=== PATIENT | male | born 1935 | race Asian ===

== ENCOUNTER 2017-12-30 16:32 | Inpatient (IN) | payer MEDICAID, MEDICARE ==
[~2017-12-30] VITALS: Ht 170.2 cm; Wt 69.9 kg
--- NOTE | 2017-12-30 16:32 | NUR ---
PT BIBA ALS TO BED 10
[2017-12-30 16:35] VITALS: BP 115/63
--- NOTE | 2017-12-30 16:36 | NUR ---
82/M BIB[facility] . PER STAFF, PUS COMING OUT FROM GTUBE SITE X1 WK. SENT BY DR. OCHOA/. DRAINAGE FOUL IN ODOR. PATIENT RESPONDS BY OPENING EYE/NON VERBAL BASELIN EFOR PATIENT PER STAFF.TRACH. TO OXYGEN 2L. HX: TRAUMATIC SUBDURAL HEMORRHAGE,RESP. FAILURE,CEREBRAL ANEURYSM,KIDNEY FAILURE, HTN, RT. SIDED PARALYSIS.
[2017-12-30] MEDS ORDERED: NACL 0.9% 1,000 ML IV SCH (16:53)
[2017-12-30] MEDS ORDERED: CLINDAMYCIN 900 MG in DEXTROSE 5% 100 ML IV ONE (16:55)
[2017-12-30] MEDS ORDERED: CLINDAMYCIN 900 MG/6 ML VIAL IV ONE (17:10)
[2017-12-30 17:39] LABS: BASOPHILS % (AUTO) 0.3 % (0.0-2.0); EOSINOPHILS # (AUTO) 0.2 K/uL (0-0.4); EOSINOPHILS % (AUTO) 1.8 % (0.0-4.0); HEMATOCRIT 22.7 % (36-52); HEMOGLOBIN 7.1 g/dL (12.0-18.0); LYMPHOCYTES # (AUTO) 0.7 K/uL (2.0-11.5); LYMPHOCYTES % (AUTO) 6.5 % (20.5-51.1); MEAN CORPUSCULAR HEMOGLOBIN 26 pg (27-31); MEAN CORPUSCULAR HGB CONC 32 g/dL (33-37); MEAN CORPUSCULAR VOLUME 82.9 fL (80-94); MONOCYTES % (AUTO) 9.6 % (1.7-9.3); NEUTROPHILS # (AUTO) 8.2 K/uL (1.8-7.7); NEUTROPHILS % (AUTO) 81.8 % (42.2-75.2); PLATELET COUNT (AUTO) 258 K/uL (140-450); RED BLOOD CELL COUNT(AUTO) 2.74 MIL/uL (4.20-6.10); RED CELL DISTRIBUTION WIDTH 18.1 % (11.6-13.7)
[2017-12-30] MEDS ORDERED: DOCU-299 GT (17:41)
[2017-12-30] MEDS ORDERED: ACET-7756 GT (17:41)
[2017-12-30] MEDS ORDERED: TRA200 GT (17:41)
[2017-12-30] MEDS ORDERED: PRON INH (17:41)
[2017-12-30] MEDS ORDERED: LACT1CAP8 GT (17:41)
[2017-12-30] MEDS ORDERED: ALEN70TA1 GT (17:41)
[2017-12-30] MEDS ORDERED: FERR75LI22 GT (17:41)
[2017-12-30] MEDS ORDERED: METF500T GT (17:41)
[2017-12-30] MEDS ORDERED: ATRN INH (17:41)
[2017-12-30] MEDS ORDERED: PANT40EC GT (17:41)
[2017-12-30] MEDS ORDERED: KEP500L GT (17:41)
[2017-12-30] MEDS ORDERED: TAMS0.4C96 GT (17:41)
[2017-12-30] MEDS ORDERED: ACET-2869 GT (17:41)
[2017-12-30] MEDS ORDERED: VALS80TA2 GT (17:44)
[2017-12-30] MEDS ORDERED: VALS160T2 PO (17:44)
[2017-12-30 17:56] LABS: PROTHROMBIN TIME 10.6 secs (10.8-13.4)
[2017-12-30 18:07] LABS: ALBUMIN 2.1 g/dL (3.4-5.0); AMYLASE 28 U/L (25-115); ANION GAP 9.4 (8-16); ASPARTATE AMINOTRANSFERASE 21 U/L (15-37); CARBON DIOXIDE 28.4 mmol/L (21-32); CHLORIDE 103 mmol/L (98-107); CREATININE 1.3 mg/dL (0.7-1.3); GLUCOSE 220 mg/dL (74-106); LIPASE 191 U/L (73-393); POTASSIUM 4.8 mmol/L (3.5-5.1); SODIUM SERUM 136 mmol/L (136-145); TOTAL BILIRUBIN 0.2 mg/dL (0.0-1.0); UREA NITROGEN, BLOOD 41 mg/dL (7-18)
[2017-12-30] MEDS: NACL 0.9% 1,000 ML IV SCH (18:27)
--- NOTE | 2017-12-30 18:29 | NUR ---
SON AT BEDSIDE.Patient appears to be resting comfortably in bed. Vital Signs within normal limits. ON TRACH COLLAR WITH Respirations even and unlabored. WILL CONTINUE TO MONITOR.
[2017-12-30] MEDS ORDERED: DOCUSATE SODIUM 100 MG GELCAP PO PRN (18:30)
[2017-12-30] MEDS ORDERED: ZOLPIDEM 5 MG TAB PO PRN (18:30)
[2017-12-30] MEDS ORDERED: ONDANSETRON 4 MG/2 ML VIAL IM/IVP PRN (18:30)
[2017-12-30] MEDS ORDERED: MORPHINE SULFATE 2 MG/ML SYR IVP PRN (18:30)
[2017-12-30] MEDS ORDERED: ACETAMINOPHEN 325 MG TAB PO PRN (18:30)
[2017-12-30] MEDS ORDERED: LORazepam 2 MG/ML VIAL IM/IVP PRN (18:30)
[2017-12-30] MEDS ORDERED: HYDROcodone/APAP 5/325 MG 1 TAB TAB PO PRN (18:30)
[2017-12-30 18:40] LABS: APPEARANCE,URINE CLEAR (CLEAR); BILIRUBIN,URINE NEGATIVE (NEGATIVE); BLOOD, URINE NEGATIVE (NEGATIVE); COLOR,URINE YELLOW (YELLOW); LEUKOCYTE ESTERASE ,URINE NEGATIVE (NEGATIVE); NITRITE, URINE NEGATIVE (NEGATIVE); UGLUCOSE NEGATIVE (NEGATIVE)
--- NOTE | 2017-12-30 18:43 | NUR ---
pt son, blayne, leaving bedside at this time to get some food. pt leaving number at this time, requesting a call with any changes or when pt is to get admitted. phone #
--- NOTE | 2017-12-30 19:05 | NUR ---
Pt report given to PARIS DE JESUS. Transfer of care at this time.
[2017-12-30 19:06] LABS: FREE T4 (FREE THYROXINE) 1.41 ng/dL (0.76-1.46); MAGNESIUM 2.4 mg/dL (1.8-2.4); PHOSPHORUS 3.9 mg/dL (2.5-4.9); THYROID STIMULATING HORMONE 2.01 uIU/mL (0.34-3.74)
--- NOTE | 2017-12-30 19:10 | NUR ---
RECEIVED REPORT FROM AM NURSE. PT RESTING IN BED, SPO2 100% ON O2 2L TRACH MASK, RR EVEN AND UNLABORED. ALL NEEDS MET.
[2017-12-30 19:15] VITALS: BP 110/63
--- NOTE | 2017-12-30 19:15 | NUR ---
RECEIVED REPORT FROM ER NURSE AT BEDSIDE FOR CONTINUITY OF CARE. PT WAS TRANSPORTED BY GREG. PT IV NOTED L HAND 24G NS OPEN WIDE. NO SOB NO S/S OF DISTRESS PT IS ON 2L O2 TO TRACH. PT HAS RANDALL IN PLACE. PT IS APHASIC. UNDERSTANDS WOLOF AND PHILIPINO. PT SKIN IS NOT INTACT PT HAS ABCESS ABOVE G-TUBE AND DRAINAGE FROM G-TUBE. BED LOWERED CALL LIGHT WITHIN REACH. O2 MONITOR AT BEDSIDE WILL CONTINUE TO MONITOR.
--- NOTE | 2017-12-30 19:18 | NUR ---
Patient will be admitted to care of DR. REYES. Admited to TELE. Will go to room 124B. Belongings list completed. Report to LIZA RHODES.
[2017-12-30] MEDS ORDERED: DEXTROSE 50% 50 ML SYR IVP PRN (19:20)
--- NOTE | 2017-12-30 20:30 | NUR ---
EPG SAVAGE AT BEDSIDE AND MD DANIELS. DISCUSSED SURGERY FOR TOMORROW. CONSENT SIGNED.
[2017-12-30] MEDS: BLOOD GLUCOSE MONITORING 1 DEV DEV FS SCH (22:37)
[2017-12-30] MEDS: TAMSULOSIN 0.4 MG CAP GT SCH (22:39)
[2017-12-30] MEDS: metFORMIN 500 MG TAB GT SCH (22:39)
[2017-12-30] MEDS: levETIRAcetam 100 MG/ML ORASYR GT SCH (22:39)
[2017-12-30] MEDS: INSULIN LISPRO SLIDING SCALE 100 UNITS/ML VIAL SUBQ PRN (22:46)
[2017-12-30] MEDS ORDERED: PIPERACILLIN/TAZOBACTAM 3.375 GM VIAL IV ONE (23:03)
[2017-12-30] MEDS: PIPER/TAZO 3.375GM/D5W PREMIX 50 ML IV SCH (23:36)
[2017-12-31] VITALS: BP 104/71
[2017-12-31] MEDS ORDERED: NITROGLYCERIN 0.4 MG TAB SL ONE (02:25)
[2017-12-31] MEDS ORDERED: HEPARIN PER PHARMACY MC PRN (03:50)
[2017-12-31] MEDS ORDERED: hePARIN / DEXT 5% PREMIX 250 ML IV SCH ×2 (03:50→04:05)
[2017-12-31 04:00] VITALS: BP 133/66
--- NOTE | 2017-12-31 04:40 | NUR ---
SPOKE TO MILTON AND LET HER KNOW OF PT UPCOMING SURGERY AT 1015. RESIDENT STATED ELEVATED TROPONIN STILL NEEDS TO BE TREATED BEFORE SURGERY. MILTON ADVISED ME TO STOP HEPARIN DRIP 4 HRS PRIOR TO SURGERY. WILL STOP DRIP AT 0615. CHARGE NURSE AWARE ALSO.
--- NOTE | 2017-12-31 05:05 | NUR ---
CALLED MD ROSE AND SHE IS AWARE OF 4 HOUR PRIOR STOP HEPARIN BEFORE SURGERY AND TO RE-START AFTER SURGERY ALSO TO REQUEST PTT AFTER 6HRS OF STARTING. WILL LET MORNING NURSE AWARE OF PLAN.
[2017-12-31] MEDS: PIPER/TAZO 3.375GM/D5W PREMIX 50 ML IV SCH ×3 (06:06→19:33)
[2017-12-31] MEDS: BLOOD GLUCOSE MONITORING 1 DEV DEV FS SCH ×4 (06:06→21:11)
[2017-12-31] MEDS ORDERED: PIPERACILLIN/TAZOBACTAM 3.375 GM VIAL IV ONE (06:08)
--- NOTE | 2017-12-31 06:15 | NUR ---
HEPARIN DRIP HAS BEEN STOP. WILL RESUME AFTER SURGERY. STOPPED HEPARIN 4 HRS PRIOR TO SURGERY.
[2017-12-31] MEDS ORDERED: DEXT 5% / NACL 0.9% 500 ML IV SCH (06:30)
[2017-12-31] MEDS: DEXT 5% /NACL 0.9% 1,000 ML IV SCH ×2 (07:05→23:45)
--- NOTE | 2017-12-31 07:15 | NUR ---
ENDORSED REPORT TO DAYSHIFT AT BEDSIDE FOR CONTINUITY OF CARE.
[2017-12-31 07:20] LABS: T4 (THYROXINE) 6.8 ug/dL (4.5-12.0)
--- NOTE | 2017-12-31 07:23 | NUR ---
RECEIVED PT FROM BOBBIN PRESSER NURSECARMELO, PT IS ASLEEP LYING ON THE BED WITH SIDE RAILS UP AND CALL LIGHT WITHIN REACH, SAFETY AND FALL PRECAUTION ENFORCED, YELLOW GOWN, YELLOW ARM BAND AND YELLOW SIGN WERE IN PLACE. PT HAS TWO IV LINES, ONE ON THE LEFT HAND G.24 WHERE THE HEPARIN DRIP WAS GIVEN AND ANOTHER LINE WAS ON THE LEFT FOREARM G. 24 WITH D5 NS RUNNING AT 60 ML/HR, INTACT AND INFUSING. RESPIRATION IS EVEN AND NO SIGN OF DISTRESS NOTED, O2 SATURATION IS AT 100% WITH TRACHEOSTOMY IN PLACE. RANDALL CATHETER IN PLACE ALSO WITH 200 ML URINE ON THE BAG. WILL CONTINUE TO MONITOR PT.
--- NOTE | 2017-12-31 07:33 | NUR ---
DR. REYES AND THE RESIDENT DOCTORS CAME TO THE PT'S ROOM AND CHECKED ON THE PT. INFORMED THE MD OF THE HEPARIN DRIP GIVEN TO THE PT AND THE TIME THAT IT WAS STOPPED.
--- NOTE | 2017-12-31 07:50 | NUR ---
CHECKED AND VERIFIED THE ORDER FOR THE PT REGARDING THE DIET AND THE PT WAS PLACED ON NPO EXCEPT MEDS, DR. LE WAS ASKED AND IF ITS OK TO GIVE THE AM MEDICATIONS, AND DR. LE SAID TO GIVE ALL AM MEDICATIONS, ACKNOWLEDGED, CHARGE NURSEKOREY WAS INFORMED ALSO REGARDING THE ADMINISTRATION OF THE AM MEDICATIONS TO THE PT.
[2017-12-31 08:00] VITALS: BP 127/67
[2017-12-31] MEDS ORDERED: FERROUS SULFATE 325 MG TABEC PO SCH (08:00)
[2017-12-31] MEDS: ALBUTEROL SULFATE/IPRATROPIU 3 ML SOL IH SCH ×3 (08:07→19:56)
[2017-12-31] MEDS ORDERED: METOPROLOL 25 MG TAB PO SCH (09:00)
[2017-12-31] MEDS ORDERED: LOSARTAN 50 MG TAB GT SCH (09:00)
[2017-12-31] MEDS ORDERED: LISINOPRIL 5 MG TAB PO SCH (09:00)
[2017-12-31] MEDS ORDERED: ASPIRIN 81 MG TAB.CHEW PO SCH (09:00)
--- NOTE | 2017-12-31 09:00 | NUR ---
DAUGHTER OF PT CAME IN THE ROOM WHILE PT WAS BEING REPOSITIONED AND CLEANED UP WITH THE HELP OF MELLISSA CLANCY. SUCTIONED PT'S SECRETIONS VIA TRACHEOSTOMY. NO SIGN OF DISTRESS NOTED AT THIS TIME. WILL MONITOR PT.
--- NOTE | 2017-12-31 09:07 | NUR ---
PATIENT HAS BEEN SCREENED AND CATEGORIZED HIGH NUTRITION RISK. PATIENT WILL BE SEEN WITHIN 1-2 DAYS OF ADMISSION. 12/31/17 01/01/[address]
[2017-12-31] MEDS: levETIRAcetam 100 MG/ML ORASYR GT SCH ×2 (09:09→21:10)
[2017-12-31] MEDS: FERROUS SULFATE 300 MG/5 ML UDC GT SCH ×2 (09:09→21:10)
[2017-12-31] MEDS: metFORMIN 500 MG TAB GT SCH ×2 (09:10→21:00)
[2017-12-31] MEDS: LACTOBACILLUS RHAMNOSUS GG 1 EACH CAP GT SCH (09:10)
[2017-12-31] MEDS: ATORVASTATIN 20 MG TAB PO SCH (09:13)
[2017-12-31 09:34] LABS: BASOPHILS % (AUTO) 0.7 % (0.0-2.0); EOSINOPHILS # (AUTO) 0.3 K/uL (0-0.4); EOSINOPHILS % (AUTO) 4.2 % (0.0-4.0); LYMPHOCYTES # (AUTO) 0.9 K/uL (2.0-11.5); LYMPHOCYTES % (AUTO) 14.2 % (20.5-51.1); MEAN CORPUSCULAR HEMOGLOBIN 26 pg (27-31); MEAN CORPUSCULAR HGB CONC 32 g/dL (33-37); MEAN CORPUSCULAR VOLUME 83.2 fL (80-94); MONOCYTES # (AUTO) 0.7 K/uL (0.8-1.0); MONOCYTES % (AUTO) 11.3 % (1.7-9.3); NEUTROPHILS # (AUTO) 4.5 K/uL (1.8-7.7); NEUTROPHILS % (AUTO) 69.6 % (42.2-75.2); PLATELET COUNT (AUTO) 240 K/uL (140-450); RED BLOOD CELL COUNT(AUTO) 2.65 MIL/uL (4.20-6.10); RED CELL DISTRIBUTION WIDTH 18.4 % (11.6-13.7); WHITE BLOOD COUNT (AUTO) 6.5 K/uL (4.8-10.8)
--- NOTE | 2017-12-31 09:57 | NUR ---
JODI FROM LAB CALLED FOR A CRITICAL LAB VALUE OF HGB 07 FOR THE PT. ACKNOWLEDGED AND WILL INFORM THE DOCTOR.
--- NOTE | 2017-12-31 10:05 | NUR ---
INFORMED DR. LE OF THE CRITICAL LAB VALUE OF HGB OF THE PT WHICH IS 7. MD ACKNOWLEDGED AND WILL PLACED AN ORDER.
[2017-12-31 10:09] LABS: ANION GAP 6.6 (8-16); CARBON DIOXIDE 30.9 mmol/L (21-32); CHLORIDE 106 mmol/L (98-107); CREATININE 1.3 mg/dL (0.7-1.3); GLUCOSE 134 mg/dL (74-106); POTASSIUM 4.5 mmol/L (3.5-5.1); SODIUM SERUM 139 mmol/L (136-145); UREA NITROGEN, BLOOD 37 mg/dL (7-18)
[2017-12-31 10:12] LABS: MAGNESIUM 2.3 mg/dL (1.8-2.4); PHOSPHORUS 4.4 mg/dL (2.5-4.9)
[2017-12-31 10:15] LABS: CHOL/HDL RATIO 3.8 (1-4.5)
--- NOTE | 2017-12-31 10:50 | NUR ---
JODI FROM LAB REPORTED A CRITICAL LAB VALUE OF TROPONIN OF 0.165. WILL NOTIFY DOCTOR.
--- NOTE | 2017-12-31 10:55 | NUR ---
INFORMED DR. ROBERT OF THE PT;S CRITICAL TROPONIN VALUE OF 0.165.
--- NOTE | 2017-12-31 11:05 | NUR ---
SCREEN FOR MID ABDOMEN ABSCESS, PT IS WAITING FOR I&D, DRESSING CHANGED. DAUGHTER AT BED SIDE, ALL QUESTIONS ANSWERED. Addendum: 12/31/17 at 1245 by London Coffey RN (Grace) PLEASE SEE INTERVENTION:WOUND ASSESSMENT.
[2017-12-31] MEDS: NACL 0.9% 1,000 ML IV SCH (11:07)
[2017-12-31 12:00] VITALS: BP 117/63
--- NOTE | 2017-12-31 12:00 | NUR ---
PT IS AWAKE AND IS LYING ON THE BED WITH DAUGHTER ON THE BEDSIDE, VITAL SIGN TAKEN AND BLOOD GLUCOSE CHECK DONE AND RESULT IS 162, INSULIN COVERAGE NOT GIVEN PER PARAMETER, MD INFORMED. WILL MONITOR PT.
--- NOTE | 2017-12-31 13:04 | NUR ---
JODI FROM LAB REPORTED A CRITICAL TROPONIN VALUE OF 0.120. WILL INFORM THE DOCTOR.
--- NOTE | 2017-12-31 13:05 | NUR ---
INFORMED DR. ROBERT OF THE PT'S CRITICAL TROPONIN VALUE. ACKNOWLEDGED.
--- NOTE | 2017-12-31 13:32 | NUR ---
ADMISSION CHART REVIEW DONE. FAXED INITIAL REVIEW TO [facility] PHYSICIAN [phone] PHONE KAJAL [phone]
[2017-12-31 14:47] LABS: PROTHROMBIN TIME 10.4 secs (10.8-13.4)
--- NOTE | 2017-12-31 14:56 | NUR ---
Industrial Conveyor Belt Repairer Note: Per [facility]arrison from [facility] , patient is on a 7 day bed hold.
[2017-12-31] MEDS: ACETAMINOPHEN 325 MG TAB PO SCH ×2 (15:24→19:41)
[2017-12-31] MEDS: SPIRONOLACTONE 25 MG TAB PO SCH (15:25)
[2017-12-31] MEDS ORDERED: ACETAMINOPHEN 325 MG TAB PO PRN (15:30)
--- NOTE | 2017-12-31 15:56 | NUR ---
PACKED RED BLOOD CELLS FOR ONE UNIT WAS PICKED UP TO THE LAB. WILL FACILITATE TRANSFUSION.
[2017-12-31 16:00] VITALS: BP 126/70
[2017-12-31] MEDS ORDERED: FUROSEMIDE 20 MG TAB PO SCH ×2 (16:00→20:00)
--- NOTE | 2017-12-31 16:00 | NUR ---
BLOOD TRANSFUSION OF ONE UNIT WAS STARTED. VITAL SIGNS TAKEN AND IS WITHIN NORMAL LIMITS. NO SIGN FO DISTRESS NOTED. WILL MONITOR.
--- NOTE | 2017-12-31 16:01 | NUR ---
12/31/17 RD INITIAL ASSESSMENT COMPLETED PLEASE REFER TO NUTRITION ASSESSMENT UNDER CARE ACTIVITY FOR ESTIMATED NUTRITIONAL NEEDS. 1. CONTINUE NPO MEDICALLY APPROPRIATE 2. IF/WHEN PT IS MEDICALLY STABLE, CONSIDER ADVANCING DIET TO PUREE CCHO 60 GM WITH TUBE FEED RECOMMENDATIONS. 3. RECOMMEND TUBE FEEDING WHEN PT IS MEDICALLY STABLE. CONSIDER GLUCERNA @55 ML/HR WITH 80 ML OF FREE WATER FLUSH Q4H 4. RD TO FOLLOW-UP 2-3 DAYS, HIGH RISK [address]
--- NOTE | 2017-12-31 16:15 | NUR ---
BLOOD TRANSFUSION IS GOING ON AND NO NEGATIVE REACTION NOTED. VITAL SIGN WITHIN NORMAL LIMITS AND IS STABLE. WILL CONTINUE TO MONITOR PT.
[2017-12-31] MEDS: ISOSORBIDE MONONITRATE 30 MG TABER PO SCH (18:40)
--- NOTE | 2017-12-31 19:00 | NUR ---
FIRST UNIT OF BAG WAS FINISHED, NS WAS RUN AND NO REACTION NOTED ON THE PT. VITAL SIGNS TAKEN ARE WITHIN NORMAL LIMITS AND STABLE.
--- NOTE | 2017-12-31 19:15 | NUR ---
STARTED 2ND BLOOD 1 UNIT OF PRBC. ADMIN BENADRYL AND TYLENOL. WILL ASSESS FOR ANY REACTIONS.
--- NOTE | 2017-12-31 19:30 | NUR ---
ENDORSED PT TO SUPERVISOR PARTICLEBOARD NURSE CARMELO FOR CONTINUITY OF CARE. PT IS STABLE AT THIS TIME.
--- NOTE | 2017-12-31 19:31 | NUR ---
RECEIVED REPORT FROM DAYSHIFT NURSE AT BEDSIDE FOR CONTINUITY OF CARE. PT AAOX1 PT RESPONDS BY NAME BUT UNDERSTANDS MORE PHILLIPINO. PT IV NOTED L HAND 24G AND L WRIST 22G. RANDALL IN PLACE. TRACH TO O2 3L. BED LOWERED CALL LIGHT WITHIN REACH WILL CONTINUE TO MONITOR.
[2017-12-31 20:00] VITALS: BP 125/73
[2017-12-31] MEDS: CARVEDILOL 3.125 MG TAB PO SCH (21:10)
[2017-12-31] MEDS: TAMSULOSIN 0.4 MG CAP GT SCH (21:11)
--- NOTE | 2017-12-31 22:27 | NUR ---
METFORMIN AND INSULIN COVERAGE NOT GIVEN BECAUSE PT IS NPO. PER MD ORDER DONT GIVE. WILL CONTINUE TO MONITOR.
[2018-01-01] VITALS (10 sets, daily range): BP systolic 113–147; BP diastolic 66–87
--- NOTE | 2018-01-01 | NUR ---
ENDED 2ND UNIT OF PRBC.
[2018-01-01] MEDS: PIPER/TAZO 3.375GM/D5W PREMIX 50 ML IV SCH ×4 (00:11→17:56)
[2018-01-01] MEDS: NACL 0.9% 1,000 ML IV SCH (03:47)
--- NOTE | 2018-01-01 06:40 | NUR ---
BG 164 PER MD DONT GIVE INSULIN COVERAGE BECAUSE PT IS NPO
[2018-01-01] MEDS: BLOOD GLUCOSE MONITORING 1 DEV DEV FS SCH ×4 (07:02→20:27)
[2018-01-01 07:06] LABS: BASOPHILS # (AUTO) 0.1 K/uL (0.00-0.22); BASOPHILS % (AUTO) 0.9 % (0.0-2.0); EOSINOPHILS # (AUTO) 0.2 K/uL (0-0.4); HEMOGLOBIN 9.9 g/dL (12.0-18.0); LYMPHOCYTES # (AUTO) 0.7 K/uL (2.0-11.5); LYMPHOCYTES % (AUTO) 13.1 % (20.5-51.1); MEAN CORPUSCULAR HEMOGLOBIN 27 pg (27-31); MEAN CORPUSCULAR HGB CONC 32 g/dL (33-37); MEAN CORPUSCULAR VOLUME 84.9 fL (80-94); MONOCYTES # (AUTO) 0.7 K/uL (0.8-1.0); MONOCYTES % (AUTO) 12.5 % (1.7-9.3); NEUTROPHILS % (AUTO) 70.5 % (42.2-75.2); PLATELET COUNT (AUTO) 246 K/uL (140-450); RED BLOOD CELL COUNT(AUTO) 3.65 MIL/uL (4.20-6.10); WHITE BLOOD COUNT (AUTO) 5.7 K/uL (4.8-10.8)
[2018-01-01] MEDS: ALBUTEROL SULFATE/IPRATROPIU 3 ML SOL IH SCH ×3 (07:12→19:29)
[2018-01-01 07:14] LABS: ANION GAP 11.2 (8-16); CARBON DIOXIDE 30.4 mmol/L (21-32); CHLORIDE 106 mmol/L (98-107); CREATININE 1.6 mg/dL (0.7-1.3); GLUCOSE 151 mg/dL (74-106); POTASSIUM 4.6 mmol/L (3.5-5.1); SODIUM SERUM 143 mmol/L (136-145); UREA NITROGEN, BLOOD 36 mg/dL (7-18)
[2018-01-01 07:17] LABS: FERRITIN 254 ng/mL (30-400); FOLIC ACID > 20.00 ng/mL (>3.0)
[2018-01-01 07:23] LABS: MAGNESIUM 2.2 mg/dL (1.8-2.4); PHOSPHORUS 4.9 mg/dL (2.5-4.9)
--- NOTE | 2018-01-01 07:30 | NUR ---
RECEIVED PT AWAKE AND ALERT, APHASIC. ON TRACH TO OXYGEN AT 2LPM. NO SOB NOTED. NO SIGNS OF PAIN. IV TO LT WRIST AND LT HAND PATENT AND INTACT. CHEST, DIMINISHED AIR ENTRY TO THE BASES. ABDOMEN SOFT, BOWEL SOUNDS PRESENT. WITH G-TUBE CLAMPED. ABSCESS NOTED ON TOP OF G-TUBE SITE, DRESSING DRY AND INTACT. WITH RANDALL DRAINING MONERATE AMOUNTS OF CLEAR YELLOW URINE. RT SIDED WEAKNESS NOTED. WILL REPOSITION PT EVERY 2 HRS. INSTRUCTED PT TO CALL FOR ASSISTANCE, CALL LIGHT WITHIN REACH, PT VERBALIZED PARTIAL UNDERSTANDING.
--- NOTE | 2018-01-01 07:36 | NUR ---
ENDORSED REPORT TO DAYSHIFT NURSE AT BEDSIDE FOR CONTINUITY OF CARE.
[2018-01-01] MEDS: FERROUS SULFATE 300 MG/5 ML UDC GT SCH ×2 (09:00→20:47)
[2018-01-01] MEDS: metFORMIN 500 MG TAB GT SCH ×2 (09:00→20:47)
--- NOTE | 2018-01-01 09:00 | NUR ---
NPO MAINTAINED FOR PLANNED PROCEDURE.
[2018-01-01] MEDS: LOSARTAN 25 MG TAB GT SCH (09:58)
[2018-01-01] MEDS: LACTOBACILLUS RHAMNOSUS GG 1 EACH CAP GT SCH (09:58)
[2018-01-01] MEDS: ATORVASTATIN 20 MG TAB PO SCH (09:58)
[2018-01-01] MEDS: levETIRAcetam 100 MG/ML ORASYR GT SCH ×2 (09:58→20:46)
[2018-01-01] MEDS: CARVEDILOL 3.125 MG TAB PO SCH ×2 (09:59→20:29)
--- NOTE | 2018-01-01 11:15 | NUR ---
TRACH SECRETIONS SUCTIONED REGULARLY.
[2018-01-01] MEDS: SPIRONOLACTONE 25 MG TAB PO SCH (12:38)
--- NOTE | 2018-01-01 13:15 | NUR ---
PT'S FAMILY AT THE BEDSIDE. DR. GODDARD SPOKE WITH PT'S FAMILY REGARDING THE PROCEDURE THAT DR. DANIELS WILL DO IT TODAY, VERBALIZED UNDERSTANDING.
[2018-01-01] MEDS: DEXT 5% /NACL 0.9% 1,000 ML IV SCH (14:26)
--- NOTE | 2018-01-01 16:20 | NUR ---
PT WHEELED TO SURGERY IN STABLE CONDITION. FAMILY AT THE BEDSIDE. VERBALIZED UNDERSTANDING.
[2018-01-01] MEDS ORDERED: fentaNYL 0.05 MG/ML VIAL ONE (16:35)
[2018-01-01] MEDS ORDERED: MIDAZOLAM 2 MG/2 ML VIAL ONE (16:36)
[2018-01-01] MEDS: BUPIVACAINE-MPF 0.5% 30 ML VIAL INJ ONE ×2 (16:36→16:52)
--- NOTE | 2018-01-01 17:20 | NUR ---
DR. VALENTINE CAME TO SEE PT. SERGOD PROCEDURE EXPLAINED, PT VERBALIZED UNDERSTANDING. CONSENT SIGNED. Addendum: 01/01/18 at 1739 by Valerie Kennedy RN DISREGARD ABOVE ENTRY. WRONG PT.
--- NOTE | 2018-01-01 17:30 | NUR ---
PT BACK FROM SURGERY IN STABLE CONDITION. DRESSING TO ABDOMEN DRY AND INTACT. DR. DANIELS SPOKE WITH PT'S FAMILY AT THE BEDSIDE.
[2018-01-01] MEDS ORDERED: MIDAZOLAM 2 MG/2 ML VIAL IVP ONE (17:35)
[2018-01-01] MEDS ORDERED: fentaNYL 0.05 MG/ML VIAL IVP ONE (17:35)
--- NOTE | 2018-01-01 18:00 | NUR ---
PT STILL SEDATED BUT AROUSABLE. VITAL SIGN STABLE.
--- NOTE | 2018-01-01 18:15 | NUR ---
DR. HEARD CAME TO SEE MD LA NENA TALKED TO FAMILY AT THE BEDSIDE, VERBALIZED UNDERSTANDING.
[2018-01-01] MEDS: ISOSORBIDE MONONITRATE 30 MG TABER PO SCH (18:35)
--- NOTE | 2018-01-01 19:03 | NUR ---
PT STILL SEDATED, AROUSABLE. NO SOB NOTED. NO SIGNS OF PAIN AT THIS TIME. WILL ENDORSE TO NEXT SHIFT NURSE FOR CONTINUITY OF CARE.
--- NOTE | 2018-01-01 19:05 | NUR ---
RECEIVED PATIENT ON BED WITH TRACH IN PLACE CONNECTED TO 02 2L. RANDALL CATHETER IN PLACE DRAINING A YELLOW URINE. WITH G-TUBE IN PLACE. ASPIRATION PRECAUTION APPLIED. PATIENT HAS BM CHANGED AND REPOSITION. SUCTIONED PATIENT INITIATED. WILL CONTINUE TO MONITOR.
[2018-01-01] MEDS: TAMSULOSIN 0.4 MG CAP GT SCH (20:49)
--- NOTE | 2018-01-01 21:00 | NUR ---
BS TAKEN AND RECORDED 149 NO COVERAGE PER SLIDING SCALE. SCHEDULE MEDICATION GIVEN THROUGH G-TUBE. NO RESIDUAL AT THIS TIME. NO S/S OF DISTRESS NOTED. ALL NEEDS ATTENDED. FALL/ASPIRATION PRECAUTION IMPLEMENTED.CALL LIGHT WITHIN REACH. WILL CONTINUE TO MONITOR.
--- NOTE | 2018-01-01 21:30 | NUR ---
CHECKED PATIENT RESTING COMFORTABLE ON BED. ASPIRATION PRECAUTION APPLIED. SUCTION PATIENT WITH MINIMAL SPUTUM. O2 SATURATION 99%. NO S/S OF DISTRESS NOTED. WILL CONTINUE TO MONITOR.
[2018-01-02] VITALS: BP 141/81
--- NOTE | 2018-01-02 00:05 | NUR ---
SCHEDULE MEDICATION GIVEN. V/S TAKEN AND RECORDED. SUCTION PATIENT TOLERATED WELL. REPOSITIONED PATIENT AND PLACE IN SEMI-FOWLERS POSITION. ASPIRATION PRECAUTION APPLIED. NO S/S OF DISTRESS NOTED. WILL CONTINUE TO MONITOR.
[2018-01-02] MEDS: PIPER/TAZO 3.375GM/D5W PREMIX 50 ML IV SCH ×4 (00:33→17:48)
--- NOTE | 2018-01-02 02:00 | NUR ---
SEEN PATIENT RESTING ON BED. SUCTION AND REPOSITIONED PATIENT TO HIS SIDE. NO S/S OF DISTRESS NOTED. CALL LIGHT WITHIN REACH. WILL CONTINUE TO MONITOR.
[2018-01-02 04:00] VITALS: BP 138/86
--- NOTE | 2018-01-02 04:00 | NUR ---
V/S TAKEN AND RECORDED. ASPIRATION PRECAUTION APPLIED.
--- NOTE | 2018-01-02 04:27 | NUR ---
SUCTIONED PATIENT WITH MINIMAL SPUTUM TOLERATED WELL. ASPIRATION PRECAUTION APPLIED. NO S/S OF DISTRESS NOTED. ALL NEEDS ATTENDED. WILL CONTINUE TO MONITOR.
--- NOTE | 2018-01-02 05:00 | NUR ---
AM CARE DONE. SCHEDULE MEDICATION GIVEN. NO S/ OF DISTRESS NOTED. WILL CONTINUE TO MONITOR.
[2018-01-02] MEDS: INSULIN LISPRO SLIDING SCALE 100 UNITS/ML VIAL SUBQ PRN ×3 (06:16→20:37)
[2018-01-02] MEDS: BLOOD GLUCOSE MONITORING 1 DEV DEV FS SCH ×4 (06:25→20:50)
--- NOTE | 2018-01-02 06:30 | NUR ---
SUCTIONED PATIENT WITH MINIMAL AMOUNT OF SPUTUM TOLERATED WELL. 99% O2 SATURATION. NO S/S OF DISTRESS NOTED.
--- NOTE | 2018-01-02 07:25 | NUR ---
ENDORSEMENT GIVEN TO AM SHIFT NURSE AT BEDSIDE FOR CONTINUITY OF CARE. PATIENT IN STABLE CONDITION. CALL LIGHT WITHIN REACH.
--- NOTE | 2018-01-02 07:30 | NUR ---
RECEIVED PT AWAKE AND ALERT, APHASIC. ON TRACH TO OXYGEN AT 2LPM. NO SOB NOTED. NO SIGNS OF PAIN AT THIS TIME. IV TO LT WRIST AND LT HAND PATENT AND INTACT. CHEST, DIMINISHED AIR ENTRY TO THE BASES. ABDOMEN SOFT, BOWEL SOUNDS PRESENT. WITH G-TUBE CLAMPED, NPO MAINTAINED PENDING FNS CONSULT. DRESSING TO ABDOMINAL ABSCESS S/P I&D (01/02/2018) DRY AND INTACT. WITH RANDALL DRAINING MODERATE AMOUNTS OF CLEAR YELLOW URINE. RT SIDED WEAKNESS NOTED. WILL REPOSITION PT EVERY 2 HRS. INSTRUCTED PT TO CALL FOR ASSISTANCE, CALL LIGHT WITHIN REACH, PT VERBALIZED PARTIAL UNDERSTANDING.
[2018-01-02] MEDS: ALBUTEROL SULFATE/IPRATROPIU 3 ML SOL IH SCH ×3 (07:37→19:11)
[2018-01-02 07:39] LABS: BASOPHILS # (AUTO) 0.1 K/uL (0.00-0.22); BASOPHILS % (AUTO) 0.9 % (0.0-2.0); EOSINOPHILS # (AUTO) 0.1 K/uL (0-0.4); EOSINOPHILS % (AUTO) 1.9 % (0.0-4.0); HEMATOCRIT 31.6 % (36-52); HEMOGLOBIN 10.1 g/dL (12.0-18.0); LYMPHOCYTES # (AUTO) 0.6 K/uL (2.0-11.5); LYMPHOCYTES % (AUTO) 10.5 % (20.5-51.1); MEAN CORPUSCULAR HEMOGLOBIN 27 pg (27-31); MEAN CORPUSCULAR HGB CONC 32 g/dL (33-37); MEAN CORPUSCULAR VOLUME 84.5 fL (80-94); MONOCYTES # (AUTO) 0.6 K/uL (0.8-1.0); MONOCYTES % (AUTO) 10.7 % (1.7-9.3); NEUTROPHILS # (AUTO) 4.5 K/uL (1.8-7.7); PLATELET COUNT (AUTO) 259 K/uL (140-450); RED BLOOD CELL COUNT(AUTO) 3.74 MIL/uL (4.20-6.10)
[2018-01-02 07:59] LABS: ANION GAP 12.6 (8-16); CARBON DIOXIDE 27.4 mmol/L (21-32); CHLORIDE 109 mmol/L (98-107); CREATININE 1.6 mg/dL (0.7-1.3); GLUCOSE 154 mg/dL (74-106); SODIUM SERUM 145 mmol/L (136-145); UREA NITROGEN, BLOOD 28 mg/dL (7-18)
[2018-01-02 08:00] VITALS: BP 134/77
[2018-01-02] MEDS: FERROUS SULFATE 300 MG/5 ML UDC GT SCH ×2 (09:00→20:26)
[2018-01-02] MEDS: metFORMIN 500 MG TAB GT SCH ×2 (09:00→20:26)
[2018-01-02] MEDS: ATORVASTATIN 20 MG TAB PO SCH (09:26)
[2018-01-02] MEDS: LACTOBACILLUS RHAMNOSUS GG 1 EACH CAP GT SCH (09:26)
[2018-01-02] MEDS: levETIRAcetam 100 MG/ML ORASYR GT SCH ×2 (09:26→20:27)
[2018-01-02] MEDS: CARVEDILOL 3.125 MG TAB PO SCH ×2 (09:27→20:26)
[2018-01-02] MEDS: LOSARTAN 25 MG TAB GT SCH (09:27)
--- NOTE | 2018-01-02 10:00 | NUR ---
PT REPOSITIONED 2 HRS. SECRETIONS SUCTIONED REGULARLY.
[2018-01-02] MEDS ORDERED: DEXAMETHASONE 4 MG/ML VIAL IVP SCH (10:30)
[2018-01-02 12:00] VITALS: BP 142/82
[2018-01-02] MEDS: SPIRONOLACTONE 25 MG TAB PO SCH (12:07)
[2018-01-02] MEDS: DEXT 5% /NACL 0.9% 1,000 ML IV SCH (12:07)
--- NOTE | 2018-01-02 13:00 | NUR ---
MESSAGE LEFT TO DIETARY TO FOLLOW UP WITH THE FEEDING FORMULA.
--- NOTE | 2018-01-02 15:30 | NUR ---
GASTRIC RESIDUAL CHECKED: 10 MLS NOTED. G-TUBE FEEDING STARTED ORDERED. WILL CONTINUE TO MONITOR.
[2018-01-02 16:00] VITALS: BP 154/99
--- NOTE | 2018-01-02 16:55 | NUR ---
PT'S SON JANETTE AT THE BEDSIDE. DR. GODDARD DISCUSSED THE PLAN POST I&D. VERBALIZED UNDERSTANDING.
[2018-01-02] MEDS: ISOSORBIDE MONONITRATE 30 MG TABER PO SCH (17:47)
--- NOTE | 2018-01-02 19:13 | NUR ---
PT RESTING. NO SOB NOTED. NO SIGNS OF PAIN. G-TUBE FEEDING TOLERATED WELL. WILL ENDORSE TO NEXT SHIFT NURSE FOR CONTINUITY OF CARE.
--- NOTE | 2018-01-02 19:15 | NUR ---
RECEIVED PATIENT LYING COMFORTABLE ON BED IN SEMI- FOWLERS POSITION. WITH RANDALL CATHETER DRAINING FREELY A YELLOWISH URINE. TRACH TO 02 2L WITH O2 OF 100%. ASPIRATION PRECAUTION APPLIED. G-TUBE FEEDING TOLERATED WELL. WILL CONTINUE TO MONITOR.
[2018-01-02 20:00] VITALS: BP 144/89
[2018-01-02] MEDS: TAMSULOSIN 0.4 MG CAP GT SCH (20:26)
--- NOTE | 2018-01-02 21:00 | NUR ---
SCHEDULE MEDICATION GIVEN TOLERATED WELL. NO S/S OF DISTRESS NOTED. ROUTINELY SUCTIONED PATIENT FOR SECRETION. REPOSITIONED PATIENT AND PLACE IN COMFORTABLE POSITION. BS TAKEN AND RECORDED WITH COVERAGE. INSULIN GIVEN PER SLING SCALE. CALL LIGHT WITHIN REACH. WILL CONTINUE TO MONITOR.
[2018-01-03] VITALS: BP 145/93
--- NOTE | 2018-01-03 | NUR ---
SCHEDULE MEDICATION GIVEN. V/S TAKEN AND RECORDED. REPOSITIONED PATIENT AND PLACE SEMI FOWLERS POSITION. NO S/S OF DISTRESS NOTED.
--- NOTE | 2018-01-03 02:00 | NUR ---
SUCTIONED PATIENT ROUTINELY TO AVOID SECRETION ACCUMULATION TO EASE BREATHING AND MAINTAIN 100% [address] IN ASPIRATION PRECAUTION. REPOSITIONED FOR COMFORT. NO S/S OF DISTRESS NOTED AT THIS TIME.
[2018-01-03] MEDS: NACL 0.9% 1,000 ML IV SCH ×2 (03:23→19:50)
[2018-01-03 04:00] VITALS: BP 148/91
--- NOTE | 2018-01-03 04:00 | NUR ---
V/S TAKEN AND RECORDED. SUCTIONED DONE TOLERATED WELL. NO S/S OF DISTRESS NOTED. WILL CONTINUE TO MONITOR
--- NOTE | 2018-01-03 05:00 | NUR ---
AM CARE DONE. REPOSITIONED PATIENT AND PLACE IN COMFORTABLE POSITION. WILL CONTINUE TO MONITOR.
[2018-01-03] MEDS: PIPER/TAZO 3.375GM/D5W PREMIX 50 ML IV SCH ×4 (05:30→17:54)
[2018-01-03] MEDS: INSULIN LISPRO SLIDING SCALE 100 UNITS/ML VIAL SUBQ PRN ×2 (06:10→13:06)
[2018-01-03] MEDS: BLOOD GLUCOSE MONITORING 1 DEV DEV FS SCH ×4 (06:16→21:00)
[2018-01-03] MEDS: ALBUTEROL SULFATE/IPRATROPIU 3 ML SOL IH SCH ×3 (07:15→20:10)
--- NOTE | 2018-01-03 07:25 | NUR ---
GAVE REPORT TO AM SHIFT NURSE AT BEDSIDE FOR CONTINUITY OF CARE. PATIENT IN STABLE CONDITION.
--- NOTE | 2018-01-03 07:26 | NUR ---
RECEIVED REPORT FORM SENIOR ORACLE DATABASE ADMINISTRATOR NURSE. PATIENT LYING DOWN IN BED SLEEPING, AROUSABLE BY VOICE. NO DISTRESS NOTED. ON TRACH TO O2 WITH HUMIDIFIER AT 2L/MIN WITH O2 SAT AT 98%. AAOX1, APHASIC, SKIN COLOR APPROPRIATE TO ETHNICITY, WARM TO TOUCH. HAS ABDOMEN I&D ON 01/01/[address] DANIELS. DRESSING IS DRY AND INTACT. HAS GTUBE RUNNING ON GLUCERNA 1.2 FEEDING PER MD ORDERS. LUNGS COARSE ON ALL LOBES. RANDALL CATHETER IN PLACE, DRAINING YELLOW, CLOUDY URINE. REVIEWED PLAN OF CARE WITH PATIENT. UNABLE TO COMPREHEND, REINFORCEMENT NEEDED. SAFETY MEASURES IN PLACE, FALL PREVENTIONS IN PLACE. WILL CONTINUE TO MONITOR.
[2018-01-03 08:00] VITALS: BP 128/65
[2018-01-03 09:14] LABS: BASOPHILS # (AUTO) 0.1 K/uL (0.00-0.22); BASOPHILS % (AUTO) 0.7 % (0.0-2.0); EOSINOPHILS # (AUTO) 0.2 K/uL (0-0.4); EOSINOPHILS % (AUTO) 3.2 % (0.0-4.0); HEMATOCRIT 30.5 % (36-52); HEMOGLOBIN 9.8 g/dL (12.0-18.0); LYMPHOCYTES # (AUTO) 0.9 K/uL (2.0-11.5); LYMPHOCYTES % (AUTO) 13.4 % (20.5-51.1); MEAN CORPUSCULAR HEMOGLOBIN 27 pg (27-31); MEAN CORPUSCULAR HGB CONC 32 g/dL (33-37); MEAN CORPUSCULAR VOLUME 85.1 fL (80-94); MONOCYTES # (AUTO) 0.8 K/uL (0.8-1.0); MONOCYTES % (AUTO) 11.7 % (1.7-9.3); NEUTROPHILS # (AUTO) 4.8 K/uL (1.8-7.7); PLATELET COUNT (AUTO) 262 K/uL (140-450); RED BLOOD CELL COUNT(AUTO) 3.58 MIL/uL (4.20-6.10); RED CELL DISTRIBUTION WIDTH 18.2 % (11.6-13.7); WHITE BLOOD COUNT (AUTO) 6.8 K/uL (4.8-10.8)
[2018-01-03 09:32] LABS: ANION GAP 11.7 (8-16); CARBON DIOXIDE 27.3 mmol/L (21-32); CHLORIDE 111 mmol/L (98-107); CREATININE 1.8 mg/dL (0.7-1.3); GLUCOSE 166 mg/dL (74-106); SODIUM SERUM 146 mmol/L (136-145); UREA NITROGEN, BLOOD 32 mg/dL (7-18)
[2018-01-03] MEDS: FERROUS SULFATE 300 MG/5 ML UDC GT SCH ×2 (09:34→22:23)
[2018-01-03] MEDS: LOSARTAN 25 MG TAB GT SCH (09:34)
[2018-01-03] MEDS: levETIRAcetam 100 MG/ML ORASYR GT SCH ×2 (09:34→21:00)
[2018-01-03] MEDS: CARVEDILOL 3.125 MG TAB PO SCH ×2 (09:35→21:00)
[2018-01-03] MEDS: metFORMIN 500 MG TAB GT SCH (09:35)
[2018-01-03] MEDS: LACTOBACILLUS RHAMNOSUS GG 1 EACH CAP GT SCH (09:35)
[2018-01-03] MEDS: ATORVASTATIN 20 MG TAB PO SCH (09:35)
--- NOTE | 2018-01-03 09:46 | NUR ---
PATIENT LYING DOWN IN BED SLEEPING, AROUSABLE BY VOICE. NO DISTRESS NOTED. FLACC 0. PERFORMED ORAL AND TRACH SUCTIONING. SCHEDULED MEDICATIONS DUE GIVEN. SAFETY MEASURES IN PLACE, CALL LIGHT WITHIN REACH. WILL CONTINUE TO MONITOR.
--- NOTE | 2018-01-03 11:00 | NUR ---
WOUND CARE RE-EVALUATION NOTE: REASON FOR EVALUATION: S/P I&D UPPER ABDOMEN ABSCESS INTEGUMENTARY: -SURGICAL WOUND UPPER ABDOMEN 3X11X0.8, WITH UNDERMINING FROM 4-6 O'CLOCK WITH 0.5CM DEPTH, WOUND BED IS RED, CLEAN, SMALL AMOUNT SEROUS DRAINAGE, NO ODOR. -GT-SITE,TOMMY STOMA SKIN INTACT WITH IRRITATION FROM TAPE RECOMMENDATIONS: -CLEANSE UPPER ABDOMINAL SURGICAL WOUND WITH NS. PAT DRY, APPLY HYDROGEL TO WOUND BED AND PACK WITH FAN FOLDED KERLIX AREN, COVER WITH DRY DRESSING SECURE WITH TAPE, DRESSING CHANGE QD AND PRN IF SOILING. -CLEANSE GT-SITE WITH NS, APPLY EKIN RING TO TOMMY STOMA SKIN AND COVER WITH SPLIT DRESSING CHANGE Q WEEK AND PRN -TURN AND REPOSITION PATIENT Q 2H -ASSESS AND MONITOR SKIN CONDITION DURING POSITION CHANGE, PLEASE PAY ATTENTION TO SACRALCOCCYX, ELBOWS AND HEELS -OFFLOAD BILATERAL HEELS BY PLACING PILLOWS UNDER CALVES AT ALL TIMES, UNLESS OTHERWISE CONTRAINDICATED -PRESSURE REDISTRIBUTION SURFACE THERAPY RECOMMENDATIONS DISCUSSED WITH PRIMARY RN AND RESIDENT PHYSICIAN, DR. MENDOZA PLEASE CONTACT WOUND CARE NURSE FOR ANY QUESTIONS AND CHANGES IN SKIN CONDITION. Addendum: 01/03/18 at 1119 by London Coffey RN (Grace) ABOVE RECOMMENDATIONS DISCUSSED WITH DR. LE, ALSO RECOMMEND SNF FOR CONTINUE WOUND CARE
[2018-01-03 12:00] VITALS: BP 137/81
[2018-01-03] MEDS: SPIRONOLACTONE 25 MG TAB PO SCH (13:04)
--- NOTE | 2018-01-03 13:18 | NUR ---
PATIENT LYING DOWN IN BED SLEEPING, AROUSABLE BY VOICE. FAMILY MEMBERS AT BEDSIDE. NO DISTRESS NOTED. SCHEDULED MEDICATIONS DUE GIVEN. SAFETY MEASURES IN PLACE, CALL LIGHT WITHIN REACH. WILL CONTINUE TO MONITOR.
--- NOTE | 2018-01-03 13:31 | NUR ---
CM NOTE SPOKE WITH [facility] BETSY COLMENARES PH# [phone] AND GAVE HER A VERBAL CLINICAL UPDATE. PER AMANDA COLMENARES, NO NEED TO FAX REVIEW TODAY. FAXED H&P, CONSULTATION NOTES, OPERATIVE NOTE, PROGRESS NOTES TO [facility] PHYS GRP [phone]. PER [facility] BETSY COLMENARES, IF PATIENT NEEDS TRANSPORTATION TO GO TO SNF TO USE [facility] AND AUTH# [id number]. ANJU DE JESUS AWARE.
--- NOTE | 2018-01-03 15:54 | NUR ---
01/03/18 RD FOLLOW UP COMPLETED PLEASE REFER TO NUTRITION ASSESSMENT UNDER CARE ACTIVITY FOR ESTIMATED NUTRITIONAL NEEDS. 1.CONTINUE GLUCERNA @70 ML/HR -THIS WILL PROVIDE PT WITH 1680 ML OF VOLUME, 2016 KCAL, AND 100 GM OF PROTEIN, WHICH MEETS 100% OF ESTIMATED NEEDS. 2. CONTINUED FREE WATER FLUSH AT [address] TO FOLLOW-UP 2-3 DAYS, HIGH RISK [address]
[2018-01-03 16:00] VITALS: BP 134/79
--- NOTE | 2018-01-03 16:00 | NUR ---
PATIENT LYING DOWN IN BED WITH FAMILY MEMBERS AT BEDSIDE. NO DISTRESS NOTED. CONDITION UNCHANGED. WILL CONTINUE TO MONITOR.
[2018-01-03] MEDS: ISOSORBIDE MONONITRATE 30 MG TABER PO SCH (17:54)
--- NOTE | 2018-01-03 18:03 | NUR ---
PATIENT LYING DOWN IN BED SLEEPING, AROUSABLE BY VOICE. NO DISTRESS NOTED. FLACC 0. CONDITION UNCHANGED. SAFETY MEASURES IN PLACE, CALL LIGHT WITHIN REACH. WILL CONTINUE TO MONITOR.
--- NOTE | 2018-01-03 19:25 | NUR ---
GAVE REPORT TO LADLE LINER HELPER NURSE FOR CONTINUITY OF CARE. PATIENT IN STABLE CONDITION.
--- NOTE | 2018-01-03 19:26 | NUR ---
RECEIVED PT FROM ANJU RN PT AOX1 TRACH TO COLLAR 02 2 LTS NOT SOB NOTED IV ON RT ARM INFUSING WELL ON TELEMETRY ST, ABD DRESSING DRY AND INTACT G TUBE FEEDING WELL TOLERATED INITIAL ASSESSMENT DONE
[2018-01-03 20:00] VITALS: BP 146/81
--- NOTE | 2018-01-03 21:30 | NUR ---
;BLOOD SUGAR TEST 143 NOT COVERAGE PT REPOSITIONED Q2H
[2018-01-03] MEDS: TAMSULOSIN 0.4 MG CAP GT SCH (22:24)
[2018-01-04] VITALS: BP 137/82
--- NOTE | 2018-01-04 | NUR ---
PT SUCTIONED NECESSARY ON TELEMETRY ST REPOSITIONED Q2H
[2018-01-04] MEDS: PIPER/TAZO 3.375GM/D5W PREMIX 50 ML IV SCH ×2 (00:16→06:21)
[2018-01-04 04:00] VITALS: BP 151/85
--- NOTE | 2018-01-04 04:00 | NUR ---
SPONGE BATH GIVNE LINEN CHANGED NOT DISTRESS NOTED ST ON TELEMETRY
[2018-01-04] MEDS: BLOOD GLUCOSE MONITORING 1 DEV DEV FS SCH ×4 (06:29→21:48)
[2018-01-04] MEDS: INSULIN LISPRO SLIDING SCALE 100 UNITS/ML VIAL SUBQ PRN ×3 (06:30→21:52)
[2018-01-04] MEDS: ALBUTEROL SULFATE/IPRATROPIU 3 ML SOL IH SCH ×3 (06:42→20:25)
--- NOTE | 2018-01-04 06:43 | NUR ---
PT SLEEPING WITH NO SIGNS OF DISTRESS NOTED AT THIS TIME NO HHN GIVEN
[2018-01-04 07:25] LABS: BASOPHILS % (AUTO) 0.4 % (0.0-2.0); EOSINOPHILS # (AUTO) 0.2 K/uL (0-0.4); EOSINOPHILS % (AUTO) 1.6 % (0.0-4.0); HEMATOCRIT 32.7 % (36-52); HEMOGLOBIN 10.3 g/dL (12.0-18.0); LYMPHOCYTES # (AUTO) 0.9 K/uL (2.0-11.5); LYMPHOCYTES % (AUTO) 9.2 % (20.5-51.1); MEAN CORPUSCULAR HEMOGLOBIN 27 pg (27-31); MEAN CORPUSCULAR HGB CONC 31 g/dL (33-37); MEAN CORPUSCULAR VOLUME 86.9 fL (80-94); MONOCYTES # (AUTO) 0.8 K/uL (0.8-1.0); MONOCYTES % (AUTO) 8.6 % (1.7-9.3); NEUTROPHILS # (AUTO) 7.8 K/uL (1.8-7.7); NEUTROPHILS % (AUTO) 80.2 % (42.2-75.2); PLATELET COUNT (AUTO) 264 K/uL (140-450); RED BLOOD CELL COUNT(AUTO) 3.76 MIL/uL (4.20-6.10); RED CELL DISTRIBUTION WIDTH 18.6 % (11.6-13.7); WHITE BLOOD COUNT (AUTO) 9.8 K/uL (4.8-10.8)
--- NOTE | 2018-01-04 07:30 | NUR ---
RECEIVED BEDSIDE REPORT FROM NAMED ACCOUNT EXECUTIVE RN. PT IN STABLE CONDITION. FLACC 0. PT IS TACHYPNEIC AT 26 BPM. O2 SAT 99%. NO ACUTE DISTRESS NOTED. ON 2L O2 TRACH TO O2. ON G-TUBE FEEDINGS AT 70 ML/HOUR ON DYSPHAGIA PRECAUTIONS. G-TUBE SITE HAS DARK BROWN AND THICK DISCHARGE. WILL NOTIFY MD. G-TUBE DRESSING CHANGED. ABD PAD ON UPPER ABDOMEN FOR S/P I&D 01/01/18 FOR ABSCESS. DRESSING IS CLEAN, DRY, AND INTACT. BILATERAL UE NON-PITTING EDEMA. RIGHT SIDED WEAKNESS FROM HX: CVA. F/C IN PLACE, DRAINING URINE. IV SITE PATENT AND ASYMPTOMATIC, RUNNING IVF PER MD ORDERS. ALL SAFETY PRECAUTIONS IN PLACE, WILL CONTINUE TO MONITOR.
[2018-01-04 07:40] LABS: CARBON DIOXIDE 28.2 mmol/L (21-32); CHLORIDE 110 mmol/L (98-107); CREATININE 2.2 mg/dL (0.7-1.3); GLUCOSE 200 mg/dL (74-106); POTASSIUM 5.2 mmol/L (3.5-5.1); SODIUM SERUM 148 mmol/L (136-145); UREA NITROGEN, BLOOD 34 mg/dL (7-18)
[2018-01-04 07:45] LABS: MAGNESIUM 2.4 mg/dL (1.8-2.4); PHOSPHORUS 4.4 mg/dL (2.5-4.9)
[2018-01-04 08:00] VITALS: BP 141/77
--- NOTE | 2018-01-04 08:43 | NUR ---
CALLED TO PT ROOM DUE TO PT DESAT TO 87% TRACH WAS OUT AND SANITATION SUPERINTENDENT CALLED PT BAGGED WITH 100% FIO2 AND ER DR. LOERA WAS CALLED TO INSERT NEW TRACH PORTEX 7 WITH NO PROBLEMS SANITATION SUPERINTENDENT ENDED AT 0850 WITH PT DOING GOOD PLACED BACK ON 2L VIA TRACH, SXN LARGE AMT OF BLOOD TINT SECRETIONS
--- NOTE | 2018-01-04 08:50 | NUR ---
DR. TABOR IN ROOM AND NOTICED PATIENT IN RESPIRATORY DISTRESS WITH TRACH OUT OF PLACE. PT WAS TACHYPNEIC AND O2 SAT DROPPING. BP AND HR ELEVATED. PERSPIRATION NOTED ON FOREHEAD. PAGED RT IMMEDIATELY, AND CALLED RAPID RESPONSE. RT BAGGED PATIENT. MD REINSERTED TRACH. DR. LE NOTIFIED. O2 SATURATION NOW 99%. NO ACUTE DISTRESS NOTED. RESTRAINTS PLACED PER MD ORDERS.
--- NOTE | 2018-01-04 09:18 | NUR ---
CALLED SON IN CHART AND NOTIFIED HIM OF EVENTS CONCERNING RAPID RESPONSE AND THE NEED FOR BILATERAL WRIST RESTRAINTS. SON IS AGREEABLE TO WRIST RESTRAINTS. WILL CONTINUE TO MONITOR PT.
[2018-01-04] MEDS: levETIRAcetam 100 MG/ML ORASYR GT SCH ×2 (09:26→21:00)
[2018-01-04] MEDS: ATORVASTATIN 20 MG TAB PO SCH (09:27)
[2018-01-04] MEDS: FERROUS SULFATE 300 MG/5 ML UDC GT SCH ×2 (09:27→21:00)
[2018-01-04] MEDS: LOSARTAN 25 MG TAB GT SCH (09:27)
[2018-01-04] MEDS: LACTOBACILLUS RHAMNOSUS GG 1 EACH CAP GT SCH (09:27)
[2018-01-04] MEDS: CARVEDILOL 3.125 MG TAB PO SCH (09:27)
--- NOTE | 2018-01-04 09:44 | NUR ---
THICK, DARK BROWN DISCHARGE FROM G-TUBE SITE. DRESSING CHANGED. SOME REDNESS NOTED AROUND G-TUBE SITE. DR. LE AWARE. WILL CONTINUE TO MONITOR.
--- NOTE | 2018-01-04 09:49 | NUR ---
0900 G-TUBE MEDS ADMINISTERED PER MD ORDERS. PER DR. TABOR, STOP G-TUBE FEEDINGS FOR AT LEAST AN HOUR AFTER G-TUBE MED ADMINISTRATION. PT IN NO ACUTE DISTRESS NOW. WILL CONTINUE TO MONITOR.
[2018-01-04] MEDS ORDERED: NACL 0.45% 1,000 ML IV SCH (10:05)
--- NOTE | 2018-01-04 10:36 | NUR ---
DR. LE HERE TO SEE G-TUBE SITE. LEAKAGE IS NOW CLEAR, THICK, AND THICK. PER DR. LE, HOLD TUBE FEEDINGS AND FOLLOW WOUND CARE ORDERS FOR G-TUBE SITE. DO NOT COVER G-TUBE SITE WITH DRAIN SPONGE TO PREVENT SKIN BREAKDOWN.
--- NOTE | 2018-01-04 10:47 | NUR ---
THICK WHITE FLUID AND LESS THAN 5 ML WESLY BLOOD LEAKED FROM G-TUBE SITE WHEN PATIENT COUGHED WITH EXERTION. DR. LE NOTIFIED.
[2018-01-04] MEDS ORDERED: LACTULOSE 20 GM/30 ML UDC PO SCH (11:00)
[2018-01-04] MEDS ORDERED: VANCOMYCIN PER PHARMACY MC PRN (11:25)
[2018-01-04 12:00] VITALS: BP 136/82
[2018-01-04] MEDS: SPIRONOLACTONE 25 MG TAB PO SCH (12:02)
[2018-01-04] MEDS: PIPER/TAZO 2.25GM/D5W PREMIX 50 ML IV SCH ×2 (12:17→18:32)
[2018-01-04] MEDS ORDERED: VANCOMYCIN 750 MG in DEXTROSE 5% 250 ML IV SCH (13:00)
--- NOTE | 2018-01-04 13:14 | NUR ---
NO TX GIVEN AT THIS TIME. PATIENT IS ASLEEP COMFORTABLY, SATURATIONS ARE 100% AND THERE IS NO SIGN OF RESPIRATORY DISTRESS.
--- NOTE | 2018-01-04 13:15 | NUR ---
RT HAS BEEN NOTIFIED OF STAT SPUTUM CULTURE ORDER.
--- NOTE | 2018-01-04 15:30 | NUR ---
G-TUBE HAS REMOVED PER DR. CHAHAL. POSSIBLE REINSERTION TOMORROW. SITE COVERED WITH GAUZE.
--- NOTE | 2018-01-04 15:46 | NUR ---
CONCURRENT REVIEW FAXED TO EVIE MEYER [phone] PHONE KAJAL [phone]
[2018-01-04 16:00] VITALS: BP 143/92
[2018-01-04 16:21] LABS: ANION GAP 20.3 (8-16); CARBON DIOXIDE 23.6 mmol/L (21-32); CHLORIDE 108 mmol/L (98-107); CREATININE 2.3 mg/dL (0.7-1.3); GLUCOSE 172 mg/dL (74-106); POTASSIUM 5.9 mmol/L (3.5-5.1); SODIUM SERUM 146 mmol/L (136-145); UREA NITROGEN, BLOOD 39 mg/dL (7-18)
--- NOTE | 2018-01-04 17:00 | NUR ---
RESTRAINTS OFF PER FAMILY REQUEST. SON AT BEDSIDE TO MONITOR PT.
[2018-01-04] MEDS ORDERED: DEXTROSE 50% 50 ML SYR IVP ONE (17:15)
[2018-01-04] MEDS ORDERED: INSULIN REGULAR, HUMAN 100 UNIT/ML VIAL IVP SCH (17:25)
[2018-01-04] MEDS ORDERED: DEXTROSE 50% 50 ML SYR IVP SCH (17:25)
[2018-01-04] MEDS: DEXT 5% / NACL 0.45% 1,000 ML IV SCH (17:52)
[2018-01-04] MEDS: ISOSORBIDE MONONITRATE 30 MG TABER PO SCH (18:00)
--- NOTE | 2018-01-04 18:20 | NUR ---
BS IS 268 WHEN RE-ASSESSED AFTER REG INSULIN AND D50 ADMINISTRATION FOR HYPERKALEMIA. WILL CONTINUE TO MONITOR.
--- NOTE | 2018-01-04 18:27 | NUR ---
IMDUR NOT GIVEN BECAUSE CAN'T BE CRUSHED. ALSO PT DOES NOT HAVE G-TUBE NOW.
--- NOTE | 2018-01-04 19:15 | NUR ---
ENDORSED POC TO COMPUTER ANALYST RN. PT IN STABLE CONDITION.
--- NOTE | 2018-01-04 19:16 | NUR ---
RECEIVED PT FROM EZEQUIEL RN PT AOX1 ON TRACH TO COLLAR 02 2 LTS NOT SOB NOTED RELATIVES AT BED SIDE SOFT WRIST RESTRAINT OFF IV ON RT ARM INFUSING WELL RANDALL CATH DRAINING WELL YELLOW URINE ON TELEMETRY ST, ABD G TUBE SITE REDNESS AND SMALL AMOUNT BLACK RESIDUAL ON G TUBE STOMA.AND NOT G TUBE ABD DRESSING DRY AND INTACT REPOSITIONED INITIAL ASSESSMENT
[2018-01-04 20:00] VITALS: BP 135/82
[2018-01-04] MEDS ORDERED: HEPARIN PER PHARMACY MC PRN (20:50)
[2018-01-04] MEDS ORDERED: hePARIN / DEXT 5% PREMIX 250 ML IV SCH (20:50)
[2018-01-04] MEDS: TAMSULOSIN 0.4 MG CAP GT SCH (21:00)
[2018-01-04] MEDS: CARVEDILOL 3.125 MG TAB GT SCH (21:00)
--- NOTE | 2018-01-04 21:30 | NUR ---
BOOD SUGAR TEST 156 COVERAGE WITH 2 UNITS SUBQ HUMALOG FOLLOW PROTOCOL
[2018-01-04] MEDS ORDERED: ENOXAPARIN 60 MG/0.6 ML SYR SUBQ SCH (22:00)
[2018-01-04 22:48] LABS: ANION GAP 18.1 (8-16); CARBON DIOXIDE 23.7 mmol/L (21-32); CHLORIDE 110 mmol/L (98-107); CREATININE 2.5 mg/dL (0.7-1.3); GLUCOSE 156 mg/dL (74-106); POTASSIUM 4.8 mmol/L (3.5-5.1); SODIUM SERUM 147 mmol/L (136-145); UREA NITROGEN, BLOOD 42 mg/dL (7-18)
[2018-01-05] VITALS (8 sets, daily range): BP systolic 102–142; BP diastolic 70–85
--- NOTE | 2018-01-05 | NUR ---
REPOSITIONED Q2H ST RESP THERAPY IS HERE AND GIVE BREATHING TX, PT IS SUCTIONED NECESSARY
[2018-01-05] MEDS: PIPER/TAZO 2.25GM/D5W PREMIX 50 ML IV SCH ×4 (00:29→20:30)
--- NOTE | 2018-01-05 04:00 | NUR ---
SPONGE BATH GIVEN LINEN CHANGED ON TELEMETRY ST , REPOSITIONED TRACH TO COLLAR REMAIN STABLE PT STILL ON RESTRAINT
[2018-01-05] MEDS: DEXT 5% / NACL 0.45% 1,000 ML IV SCH (06:00)
[2018-01-05] MEDS: BLOOD GLUCOSE MONITORING 1 DEV DEV FS SCH ×4 (06:05→20:24)
[2018-01-05] MEDS: INSULIN LISPRO SLIDING SCALE 100 UNITS/ML VIAL SUBQ PRN (06:23)
--- NOTE | 2018-01-05 06:27 | NUR ---
PATIENT IS RESTING PEACEFULLY. NO TREATMENTS ARE INDICATED AT THIS TIME. TRACH IS IN PLACE, SECURED AND PATIENT IS RECEIVING 2L VIA T-PIECE. SATS ARE AT 100% AND ADEQUATE AERATION IS HEARD. PATIENT HAS SOFT RESTRAINTS ON LEFT WRIST.
[2018-01-05] MEDS: ALBUTEROL SULFATE/IPRATROPIU 3 ML SOL IH SCH ×3 (06:34→20:37)
--- NOTE | 2018-01-05 06:37 | NUR ---
PT REMAIN STABLE NOT DISTRESS NOTED ON TELEMETRY ST BLOOD SUGAR TEST 154 COVERAGE WITH 2 UNIS SUBQ HUMALOS FOLLOW PROTOCOL
--- NOTE | 2018-01-05 07:25 | NUR ---
RECEIVED PT FROM TAPE RECORDER REPAIRER NURSE, KAMINI, PT IS ASLEEP LYING ON THE BED WITH SIDE RAILS UP AND CALL LIGHT WITHIN REACH, PT HAS AN IV LINE ON THE RT ELBOW, WITH D5 1/2 NS RUNNING AT 70ML/HR, INTACT. PT HAS A RANDALL CATHETER IN PLACE, HAS AN ABDOMINAL INCISION WITH PACKING AND COVERED WITH AN ABDOMINAL BINDER., NO G-TUBE IN PLACE AND A BLACK COLORED DRAINAGE WAS NOTABLE ON THE G-TUBE SITE, WITH REDNESS AROUND IT WELL. PT IS A TRACH TO 3L O2 IN PLACE AND PT IS SATURATING WELL AT 100%. FALL PRECAUTION ENFORCED, YELLOW SIGN, YWLLOW GOWN AND YELLOW ARM BAND IN PLACE. WILL CONTINUE TO MONITOR PT.
--- NOTE | 2018-01-05 07:30 | NUR ---
URINE SAMPLE WAS OBTAIN FROM THE PT AND WAS SENT TO THE LAB.
--- NOTE | 2018-01-05 07:38 | NUR ---
DR. REYES AND THE RESIDENT DOCTORS CAME TO THE PT'S ROOM AND SAW PT, DR. REYES SAID THAT THE PT NEEDS TOP BE TRANSFERRED TO ICU FOR CLOSE MONITORING BECAUSE RESPIRATION DOES NOT LOOK GOOD. WILL FOLLOW THROUGH WITH MD ORDER.
[2018-01-05 07:47] LABS: BASOPHILS % (AUTO) 0.1 % (0.0-2.0); HEMATOCRIT 32.6 % (36-52); HEMOGLOBIN 10.1 g/dL (12.0-18.0); LYMPHOCYTES % (AUTO) 7.8 % (20.5-51.1); MEAN CORPUSCULAR HEMOGLOBIN 27 pg (27-31); MEAN CORPUSCULAR HGB CONC 31 g/dL (33-37); MEAN CORPUSCULAR VOLUME 86.3 fL (80-94); MONOCYTES # (AUTO) 1.2 K/uL (0.8-1.0); MONOCYTES % (AUTO) 9.9 % (1.7-9.3); NEUTROPHILS # (AUTO) 10.2 K/uL (1.8-7.7); NEUTROPHILS % (AUTO) 82.2 % (42.2-75.2); PLATELET COUNT (AUTO) 153 K/uL (140-450); RED BLOOD CELL COUNT(AUTO) 3.77 MIL/uL (4.20-6.10); RED CELL DISTRIBUTION WIDTH 18.8 % (11.6-13.7); WHITE BLOOD COUNT (AUTO) 12.4 K/uL (4.8-10.8)
[2018-01-05 07:50] LABS: CREATININE 2.7 mg/dL (0.7-1.3); GLUCOSE 150 mg/dL (74-106); UREA NITROGEN, BLOOD 47 mg/dL (7-18)
[2018-01-05 07:59] LABS: ANION GAP 20.9 (8-16); CARBON DIOXIDE 22.1 mmol/L (21-32); CHLORIDE 109 mmol/L (98-107); SODIUM SERUM 147 mmol/L (136-145)
[2018-01-05 08:02] LABS: MAGNESIUM 2.6 mg/dL (1.8-2.4); PHOSPHORUS 5.6 mg/dL (2.5-4.9)
--- NOTE | 2018-01-05 08:15 | NUR ---
PT WAS CLEANED AND REPOSITIONED WITH THE HELP OF MELLISSA CLANCY, NO SIGN OF DISTRESS NOTED. WILL MONITOR PT.
--- NOTE | 2018-01-05 08:20 | NUR ---
ULTRASOUND OF BILATERAL KIDNEYS AND THE UPPER LEG WERE BEING DONE TO THE PT NOW BY IDEA WORKERPERRY OLIVARES.
[2018-01-05] MEDS: PANTOPRAZOLE 40 MG INJ VIAL IVP SCH (08:51)
[2018-01-05] MEDS: DEXTROSE 5% 1,000 ML IV SCH ×2 (08:52→22:15)
--- NOTE | 2018-01-05 09:37 | NUR ---
RECEIVED A CALL FROM ANUSHKA FROM LAB FOR A CRITICAL VALUE OF TROPONIN OF 0.272 FOR THE PT. WILL INFORM THE DOCTOR.
--- NOTE | 2018-01-05 09:40 | NUR ---
INFORMED DR. LE OF THE PT'S CRITICAL TROPONIN VALUE OF 0.272, MD ACKNOWLEDGED.
--- NOTE | 2018-01-05 10:00 | NUR ---
RECEIVED PATIENT FROM TELEMETRY .PT NONVERBAL,LETHARGIC.PT OPENS EYES WHEN ASKED HOW HE IS DOING BUT GOES BACK TO SLEEP.TRACHE TO T PIECE 30 PERCENT .RIGHT ELBOW 22 GAUGE IV WITH D5 AT 100 ML/H.DR JAMISON MADE AWARE RR IS IN THE 30S AND USING ABDOMINAL MUSCLES FOR BREATHING.BILATERAL SCD ON.UPPER ABDOMEN WITH SURGICAL WOUND ,PINK IN COLOR WITH SMALL AMOUNT OF SEROSANGUINEOUS DRAINAGE. ST ON THE MONITOR.RANDALL TO GRAVITY. Addendum: 01/05/18 at 1154 by Leida Nazario RN RN BILATERAL SOFT WRIST RESTRAINTS DC WHEN PT CAME IN AT 10 AM PT IS NOT PULLING DR JAMISON MADE AWARE
--- NOTE | 2018-01-05 10:00 | NUR ---
ENDORSED PT AND GAVE REPORT TO ICU NURSE, BRANDON, FOR CONTINUITY OF CARE. PT IS AWAKE, VITAL SIGNS WITHIN NORMAL LIMITS AND STABLE.
[2018-01-05] MEDS: LACTOBACILLUS RHAMNOSUS GG 1 EACH CAP GT SCH (10:30)
[2018-01-05] MEDS: levETIRAcetam 100 MG/ML ORASYR GT SCH (10:30)
[2018-01-05] MEDS: FERROUS SULFATE 300 MG/5 ML UDC GT SCH ×2 (10:30→20:32)
[2018-01-05] MEDS: ATORVASTATIN 20 MG TAB GT SCH (10:30)
[2018-01-05] MEDS: CARVEDILOL 3.125 MG TAB GT SCH ×2 (10:30→20:43)
--- NOTE | 2018-01-05 10:30 | NUR ---
ALL MEDS WERE NOT GIVEN DUE TO NO GTUBE ACCESS AND PER DR JAMISON HOLD NGT PLS.
--- NOTE | 2018-01-05 11:00 | NUR ---
PER DR JAMISON CHANGE IVF TO 60 ML/H. WILL WRITE ORDER
[2018-01-05] MEDS ORDERED: HEPARIN PER PHARMACY MC PRN (11:15)
--- NOTE | 2018-01-05 11:30 | NUR ---
DR ELIAS -MATERIAL PREPARATION WORKER UPDATED ABOUT PATIENTS CONDITION AND RESULT OF US UPPER EXTREMITY VENOUS DOPPLER.PER MD APPLY BILATERAL WARM COMPRESS TO EXTREMITIES.DONT START HEPARIN DRIP.
[2018-01-05] MEDS ORDERED: levETIRAcetam 500 MG in NACL 0.9% 100 ML IV SCH (12:00)
--- NOTE | 2018-01-05 12:00 | NUR ---
WARM COMPRESS DONE TO BILATERAL UUPER EXTREMITIES ORDERED.
[2018-01-05 12:37] LABS: APPEARANCE,URINE HAZY (CLEAR); BILIRUBIN,URINE NEGATIVE (NEGATIVE); BLOOD, URINE 3+ (NEGATIVE); COLOR,URINE YELLOW (YELLOW); LEUKOCYTE ESTERASE ,URINE NEGATIVE (NEGATIVE); NITRITE, URINE NEGATIVE (NEGATIVE); UGLUCOSE NEGATIVE (NEGATIVE)
[2018-01-05 12:56] LABS: RBC,URINE 11-20 (MOD) /HPF (0-5); WBC,URINE 0-5 (RARE) /HPF (0-5)
[2018-01-05 12:57] LABS: URINE AMORPHOUS URATE 1+ /HPF (None Seen)
[2018-01-05] MEDS ORDERED: hePARIN / DEXT 5% PREMIX 250 ML IV SCH (13:00)
--- NOTE | 2018-01-05 13:08 | NUR ---
GAVE VERBAL REPORT TO KAJAL FROM [facility]. FAXED CONCURRENT REVIEW TO [facility] PHYSICIAN [phone] PHONE KAJAL [phone]
[2018-01-05 13:14] LABS: EOSINOPHIL,URINE NONE SEEN
[2018-01-05] MEDS ORDERED: METOPROLOL 5 MG/5 ML VIAL IV SCH (13:45)
--- NOTE | 2018-01-05 13:45 | NUR ---
DR CHAHAL UPDATED ABOUT PTS CONDITION AND LOOK AT OLD UBEnX.comUBE SITE.NOTIFIED MD ABOUT BLACK DRAINAGE MODERATE IN AMOUNT FROM OLD GTUBE SITE.
--- NOTE | 2018-01-05 13:55 | NUR ---
DR JAMISON INSERTED DHT.PT TOLERATED WELL
--- NOTE | 2018-01-05 13:56 | NUR ---
PT SLEEPING WITH NO SIGNS OF DISTRESS NOTED AT THIS TIME NO HHN GIVEN
[2018-01-05] MEDS ORDERED: VANCOMYCIN 1GM/DEXT 5% PREMIX 200 ML IV SCH (16:00)
--- NOTE | 2018-01-05 16:00 | NUR ---
SON HERE AND UPDATED ABOUT PTS CONDITION .SON TALKED TO DR JAMISON.SON SAW THE ABDOMINAL WOUND AND OLD GTUBE SITE.
--- NOTE | 2018-01-05 16:20 | NUR ---
PER DR JAMISON ADVANCE THE NGT TO 55 CM LEVEL FROM 40 CM.RN DID IT.RN DID NOT USE NGT AND WAITED FOR XRAY RESULT WRITTEN OUT DR JAMISON AWARE OF RESULT.
--- NOTE | 2018-01-05 17:41 | NUR ---
refrigeration service technician at the bedside talking to son.
[2018-01-05] MEDS: NITROGLYCERIN 2% 1 GM PKT TP SCH (18:58)
--- NOTE | 2018-01-05 19:20 | NUR ---
REPORT GIVEN TO PARADISE DE JESUS FOR CONTINUITY OF CARE
--- NOTE | 2018-01-05 20:08 | NUR ---
RECEIVED BEDSIDE REPORT FROM MORNING SHIFT RNTRENTON, FOR CONTINUITY OF CARE. AFEBRILE, VSS, PERRL. PT IS AWAKE, NONVERBAL, OPENS EYES SPONTANEOUSLY. PT IS ON TRACH TO T PIECE 30%. LUNG SOUNDS CLEAR ON BILATERAL UPPER LOBES, DIMINISHED LOWER LOBES. BOWEL SOUND ACTIVE ON AUSCULTATION IN ALL FOUR QUADRANTS. NGT IN PLACE, NPO, EXCEPT MEDS. RANDALL CATHETER IN PLACE. SR ON PRECISION DEVICES INSPECTOR/TESTER. ABDOMINAL WOUND DRESSING DRY/INTACT.SCDS ON BILATERAL LEGS. RIGHT ELBOW 22 GAUGE, INFUSING D5 AT 50 MLS/HR. HOB ELEVATED, STANDARD PRECAUTIONS MAINTAINED.
[2018-01-05] MEDS: levETIRAcetam 500 MG in NACL 0.9% 100 ML IV SCH (20:31)
[2018-01-05] MEDS: TAMSULOSIN 0.4 MG CAP GT SCH (20:32)
--- NOTE | 2018-01-05 21:20 | NUR ---
CALLED DR. HAWTHORNE ORDER GIVEN TO REMOVE GUIDE WIRE FROM [facility] IN ORDER TO ADMINISTER MEDS.
--- NOTE | 2018-01-05 21:24 | NUR ---
CLAUDIA GUIDEWIRE REMOVED ORDERED BY DR HAWTHORNE.CATHETER INTACT.
--- NOTE | 2018-01-05 22:10 | NUR ---
DR. SCANLON AT BEDSIDE, WILL FOLLOW-UP WITH ORDERS.
--- NOTE | 2018-01-05 22:25 | NUR ---
ARUN CHO, AT BEDSIDE TO PERFORM EKG.
[2018-01-05] MEDS: MEROPENEM 500 MG in NACL 0.9% 50 ML IV SCH (22:42)
[2018-01-05] MEDS ORDERED: MEROPENEM 500 MG VIAL IV ONE (22:43)
[2018-01-06] VITALS: BP 113/67
[2018-01-06] MEDS: NITROGLYCERIN 2% 1 GM PKT TP SCH ×5 (00:34→23:50)
--- NOTE | 2018-01-06 01:30 | NUR ---
PT IS SLEEPING.
[2018-01-06] MEDS: DEXTROSE 5% 1,000 ML IV SCH (02:15)
--- NOTE | 2018-01-06 03:53 | NUR ---
VERIFIED WITH DR. HAWTHORNE REGARDING TROPONIN LAB DRAW, STATED THE ORDER WAS CANCELLED PER PLATE MAKER.
[2018-01-06 04:00] VITALS: BP 123/76
--- NOTE | 2018-01-06 04:20 | NUR ---
BED BATH PROVIDED TO PT. SKIN IS EDEMATOUS, +1,+2PITTING ON BILATERAL FEET AND RIGHT HAND. CATHETER AND VAP ORAL CARE PROVIDED. PT REPOSITIONED. BOWEL MOVEMENT, DARK GREEN LOOSE STOOL OF MEDIUM AMOUNT., PERINEAL AREA CLEANSED. PILLOW SUPPORT PROVIDED.
--- NOTE | 2018-01-06 04:42 | NUR ---
LAB AT BEDSIDE TO COLLECT BLOOD DRAW.
[2018-01-06 05:33] LABS: BASOPHILS % (AUTO) 0.4 % (0.0-2.0); HEMATOCRIT 35.2 % (36-52); LYMPHOCYTES # (AUTO) 0.4 K/uL (2.0-11.5); LYMPHOCYTES % (AUTO) 4.3 % (20.5-51.1); MEAN CORPUSCULAR HEMOGLOBIN 27 pg (27-31); MEAN CORPUSCULAR HGB CONC 31 g/dL (33-37); MEAN CORPUSCULAR VOLUME 87.9 fL (80-94); MONOCYTES # (AUTO) 0.5 K/uL (0.8-1.0); MONOCYTES % (AUTO) 4.9 % (1.7-9.3); NEUTROPHILS # (AUTO) 9.4 K/uL (1.8-7.7); NEUTROPHILS % (AUTO) 90.4 % (42.2-75.2); PLATELET COUNT (AUTO) 113 K/uL (140-450); RED BLOOD CELL COUNT(AUTO) 4.01 MIL/uL (4.20-6.10); RED CELL DISTRIBUTION WIDTH 19.5 % (11.6-13.7); WHITE BLOOD COUNT (AUTO) 10.4 K/uL (4.8-10.8)
--- NOTE | 2018-01-06 05:41 | NUR ---
ARLEY FROM RAD, AT BEDSIDE TO PERFORM CHEST XRAY.
[2018-01-06 05:52] LABS: MAGNESIUM 2.5 mg/dL (1.8-2.4); PHOSPHORUS 6.5 mg/dL (2.5-4.9)
[2018-01-06 05:58] LABS: ANION GAP 19.3 (8-16); CARBON DIOXIDE 23.2 mmol/L (21-32); CHLORIDE 108 mmol/L (98-107); GLUCOSE 187 mg/dL (74-106); POTASSIUM 4.5 mmol/L (3.5-5.1); SODIUM SERUM 146 mmol/L (136-145); TOTAL BILIRUBIN 0.9 mg/dL (0.0-1.0)
[2018-01-06] MEDS: BLOOD GLUCOSE MONITORING 1 DEV DEV FS SCH ×4 (06:38→20:28)
--- NOTE | 2018-01-06 06:40 | NUR ---
BS 195; PHONE CALL MADE TO DR HAWTHORNE; INFORMED OF THE ABOVE; TO HOLD INSULIN COVERAGE FOR NOW.
[2018-01-06 06:46] LABS: ASPARTATE AMINOTRANSFERASE 2774 U/L (15-37)
--- NOTE | 2018-01-06 07:14 | NUR ---
RECEIVED BEDSIDE REPORT FROM NAPRAPATH RN FOR CONTINUITY OF CARE. PATIENT IS NONVERBAL, TAGALOG SPEAKING, ABLE TO NOD HIS HEAD TO ANSWER QUESTIONS. PATIENT OPENS EYES SPONTANEOUSLY. PATIENT SKIN HAS I AND D INCISION TO ABDOMEN WITH DRESSING CLEAN AND DRY, HE HAS DRESSING TO GTUBE SITE WITH NO GTUBE IN PLACE. PATIENT HAS PERIPHERAL IV SITE TO RIGHT ELBOW. PATIENT HAS NGT TO RIGHT NARES IN PLACE, NO RESIDUAL NOTED. PATIENT HAS TRACH IN PLACE TO T PIECE. O2 SAT IS 100%, SR ON MONITOR, FLACC 0. RANDALL CATHETER IN PLACE TO LIGHT JARETT URINE. HOB IS 30 DEGREES IN A LOW POSITION. ALL SAFETY PRECAUTIONS ENFORCED, CALL LIGHT WITHIN REACH, WILL CONTINUE TO MONITOR.
[2018-01-06 07:16] LABS: UREA NITROGEN, BLOOD 61 mg/dL (7-18)
--- NOTE | 2018-01-06 07:24 | NUR ---
PROVIDED BEDSIDE REPORT TO MORNING SHIFT RN, LAURIE, FOR CONTINUITY OF CARE. PT IS IN STABLE CONDITION AT THIS TIME.
[2018-01-06 08:00] VITALS: BP 126/58
[2018-01-06] MEDS: ALBUTEROL SULFATE/IPRATROPIU 3 ML SOL IH SCH ×3 (08:04→19:54)
--- NOTE | 2018-01-06 08:05 | NUR ---
RECEIVED ON A COOL AEROSOL WITH SUPPLEMENTAL OXYGEN AT 30%/6 LPM ON AND FUNCTIONING WELL TO INLINE SUCTION CATHETER/PORTEX DFEN #7 AIRWAY CUFF PRESSURE CHECKED AT [id number] SATURATION 100% POST HHN THERAPY TITRATED FIO2 TO 28% EIRENE/RN NOTIFIED
[2018-01-06] MEDS ORDERED: levETIRAcetam 100 MG/ML VIAL IV ONE (08:06)
[2018-01-06] MEDS: LACTOBACILLUS RHAMNOSUS GG 1 EACH CAP GT SCH (08:08)
[2018-01-06] MEDS: FERROUS SULFATE 300 MG/5 ML UDC GT SCH ×2 (08:08→20:20)
[2018-01-06] MEDS: ATORVASTATIN 20 MG TAB GT SCH (08:08)
[2018-01-06] MEDS: CARVEDILOL 3.125 MG TAB GT SCH ×2 (08:08→20:20)
[2018-01-06] MEDS: PANTOPRAZOLE 40 MG INJ VIAL IVP SCH (08:09)
[2018-01-06] MEDS: CALCIUM ACETATE 667 MG TAB PO SCH (08:09)
[2018-01-06] MEDS: levETIRAcetam 500 MG in NACL 0.9% 100 ML IV SCH ×2 (08:10→20:20)
--- NOTE | 2018-01-06 08:45 | NUR ---
DR. REYES AND RESIDENT PHYSICIANS IN TO SEE AND EXAMINE PATIENT. UPDATED ON PATIENT'S CONDITION. WILL FOLLOW UP ON ANY ORDERS.
--- NOTE | 2018-01-06 09:05 | NUR ---
PATIENT HAD 1 SMALL SOFT AND GREEN BM, CLEANED AND REPOSITION PATIENT FOR COMFORT, PATIENT TOLERATED WELL.
--- NOTE | 2018-01-06 09:35 | NUR ---
APPLIED WARM COMPRESSES TO UPPER EXTREMITIES. PATIENT TOLERATES WELL, NO SIGNS OF DISTRESS NOTED AT THIS TIME.
[2018-01-06] MEDS: MEROPENEM 500 MG in NACL 0.9% 50 ML IV SCH ×2 (09:41→20:19)
--- NOTE | 2018-01-06 10:04 | NUR ---
DR. HEARD IN TO SEE AND EXAMINE PATIENT, UPDATED ON PATIENT'S CONDITION. WILL FOLLOW UP ON ANY ORDERS.
[2018-01-06] MEDS ORDERED: PROBIOTIC SCREEN 1 EA MISC MC PRN (11:20)
--- NOTE | 2018-01-06 11:35 | NUR ---
Started Nepro 1.8cal feeds @ 10ml/hr + 200ml Free H20 Flush Q4hr. Positive placement with 5ml residual.
[2018-01-06] MEDS: INSULIN LISPRO SLIDING SCALE 100 UNITS/ML VIAL SUBQ PRN ×2 (11:53→20:32)
[2018-01-06 12:00] VITALS: BP 121/81
--- NOTE | 2018-01-06 12:06 | NUR ---
RD IN TO SEE PATIENT, UPDATED ON PATIENT'S CONDITION. WILL FOLLOW UP FOR ANY ORDERS.
[2018-01-06] MEDS ORDERED: HYDRAGUARD CREAM TP PRN (13:00)
--- NOTE | 2018-01-06 14:48 | NUR ---
FAXED CONCURRENT REVIEW TO [facility] [phone] PHONE KAJAL [phone]
--- NOTE | 2018-01-06 15:04 | NUR ---
DEEP TRACHEAL SUCTION FOR MODERATE THIN WHITE SECRETIONS AIRWAY PATENT
--- NOTE | 2018-01-06 15:44 | NUR ---
01/06/18 RD FOLLOW UP COMPLETED PLEASE REFER TO NUTRITION ASSESSMENT UNDER CARE ACTIVITY FOR ESTIMATED NUTRITIONAL NEEDS. 1.CONTINUE NEPRO CARBSTEADY @35 ML/HR -THIS WILL PROVIDE PT WITH 840 ML OF VOLUME, 1512 KCAL, AND 68 GM OF PROTEIN, WHICH MEETS 100% OF ESTIMATED PROTEIN NEEDS AND 90% OF ESTIMATED KCAL NEEDS. 2. CONTINUED FREE WATER FLUSH AT 250 ML Q4H PER PARK RANGER 3. RD TO FOLLOW-UP 2-3 DAYS, HIGH RISK HOLLEY CARTER RD
--- NOTE | 2018-01-06 15:51 | NUR ---
REENFORCED WARM COMPRESS TO PATIENT'S UPPER EXTREMITIES, NO SIGNS OF DISTRESS NOTED, PATIENT TOLERATING WELL.
[2018-01-06 16:00] VITALS: BP 100/56
--- NOTE | 2018-01-06 16:35 | NUR ---
DR. ELIAS IN TO SEE AND EXAMINE PATIENT, UPDATED ON PATIENT'S CONDITION. WILL FOLLOW UP ON ANY ORDERS.
--- NOTE | 2018-01-06 16:42 | NUR ---
PATIENT'S SON AT BEDSIDE, UPDATED ON PATIENT'S CONDITION BY DR. JAMISON. NO SIGNS OF DISTRESS NOTED AT THIS TIME.
[2018-01-06] MEDS: VANCOMYCIN 750 MG in DEXTROSE 5% 250 ML IV SCH (17:39)
--- NOTE | 2018-01-06 17:41 | NUR ---
ADMINISTERED ABX ORDERED, PATIENT TOLERATED WELL. DID NOT ADMINISTER NITRO, DR. JAMISON AWARE.
--- NOTE | 2018-01-06 18:20 | NUR ---
DR. QUIGLEY AT BEDSIDE SPEAKING TO PATIENT'S SON JANETTE ABOUT PLAN FOR PATIENT.
--- NOTE | 2018-01-06 18:23 | NUR ---
PER DR. JAMISON HOLD ALL CARDIAC MEDS, PATIENT'S SON IS AWARE. PLAN IS TO HAVE MEETING WITH PATIENT'S FAMILY AND AND DR. ELIAS REGARDING PROGNOSIS OF PATIENT
--- NOTE | 2018-01-06 19:16 | NUR ---
ENDORSE CONTINUITY OF CARE TO FOOD SERVICE ORDER CLERK RN AT BEDSIDE, NO SIGNS OF DISTRESS NOTED.
--- NOTE | 2018-01-06 19:30 | NUR ---
PT AWAKE, EYES OPEN, NON VERBAL, R SIDE UPPER AND LOWER EXTREM FLACCID; LEFT SIDE WEAK +1 STRENGTH TO UPPER AND LOWER EXTREMITY. TRACH TO T PIECE ON 28% FIO2. SCANT WHITE THICK SPUTUM NOTED. NSR 70S +2 EDEMA TO PERIPHERAL UPPER AND LOWER EXTREMITIES. SCROTAL EDEMA NOTED. RANDALL IN PLACE PATENT, PT OLIGUIRIC, DARK JARETT URINE, NOTED. DOPHOFF NGT TO R NARES IN PLACE, NO FEEDING @ THIS TIME. SKIN INTACT, SCD IN PLACE. PERIPHERAL IV TO R UPPER FOREARM/ELBOW PATENT. NO S/S OF ACUTE DISTRESS NOTED.
[2018-01-06 20:00] VITALS: BP 111/65
--- NOTE | 2018-01-06 20:00 | NUR ---
PT GIVEN VAP ORAL CARE PER PROTOCOL. PT TURNED AND REPOSITIONED. WILL CONTINUE TO OBSERVE
[2018-01-06] MEDS: TAMSULOSIN 0.4 MG CAP GT SCH (20:20)
--- NOTE | 2018-01-06 22:20 | NUR ---
PT HAD EPISODE 35+ BEATS NON SUSTAINED VTACH, PT WAS ASLEEP EYES CLOSED, PRECORDIAL THUMP GIVEN X1 PT NOW BACK INTO NORMAL SINUS RHYTHM WITH PVCS. VITAL SIGNS RECHECKED CURRENT BP 93/52 NSR 76 100% SPO2. RESIDENT DR. HAWTHORNE MADE AWARE, PLACED NEW ORDERS FOR EKG AND LABS. WILL CARRY OUT ORDERS.
--- NOTE | 2018-01-06 22:21 | NUR ---
PT BACK ASLEEP EYES CLOSED, VITAL SIGNS RECHECKED 124/65 HR 74 100% SPO2 RR 22. SINUS RHYTHM WITH PVCS NOTED. PT DENIES PAIN, NO S/S OF ACUTE PAIN WILL CONTINUE TO OBSERVE.
--- NOTE | 2018-01-06 22:22 | NUR ---
RT @ BEDSIDE FOR 12 LEAD EKG
--- NOTE | 2018-01-06 22:30 | NUR ---
PT AWAKE, EYES OPENING SPONTANEOUSLY; EYE TRACKING. DENIES PAIN @ THIS TIME. NO ACUTE DISTRESS NOTED.
[2018-01-06 23:56] LABS: MAGNESIUM 2.5 mg/dL (1.8-2.4); PHOSPHORUS 5.1 mg/dL (2.5-4.9)
[2018-01-06 23:57] LABS: ANION GAP 13.6 (8-16); CARBON DIOXIDE 26.3 mmol/L (21-32); CHLORIDE 106 mmol/L (98-107); GLUCOSE 197 mg/dL (74-106); POTASSIUM 3.9 mmol/L (3.5-5.1); SODIUM SERUM 142 mmol/L (136-145)
[2018-01-07] VITALS (10 sets, daily range): BP systolic 95–123; BP diastolic 49–74
--- NOTE | 2018-01-07 | NUR ---
VAP ORAL CARE DONE PER PROTOCOL. PT TURNED @ REPOSITIONED. SUCTIONED VIA INLINE SUCTION. SCANT THICK WHITE SPUTUM NOTED.
[2018-01-07 00:02] LABS: UREA NITROGEN, BLOOD 69 mg/dL (7-18)
--- NOTE | 2018-01-07 02:00 | NUR ---
PT UNDERGOING NUMEROUS EKG RHYTHMIC CHANGES, FROM VENTRICULAR ESCAPE RHYTHM TO SINUS ARRYTHMIA. PT ASYMPTOMATIC FOR CHANGES. PT AROUSABLE DENIES PAIN. PT OPENS EYES TO VOICE, FLACC 0 NO S/S OF ACUTE DISTRESS NOTED. WILL CONTINUE TO OBSERVE.
--- NOTE | 2018-01-07 04:00 | NUR ---
PT TURNED AND REPOSITIONED. VAP ORAL CARE PER PROTOCOL. NO S/S OF ACUTE DISTRESS NOTED. WILL CONTINUE TO OBSERVE.
[2018-01-07 05:52] LABS: BASOPHILS % (AUTO) 0.1 % (0.0-2.0); EOSINOPHILS # (AUTO) 0.1 K/uL (0-0.4); EOSINOPHILS % (AUTO) 0.8 % (0.0-4.0); LYMPHOCYTES # (AUTO) 0.8 K/uL (2.0-11.5); LYMPHOCYTES % (AUTO) 6.9 % (20.5-51.1); MEAN CORPUSCULAR HEMOGLOBIN 27 pg (27-31); MEAN CORPUSCULAR HGB CONC 31 g/dL (33-37); MEAN CORPUSCULAR VOLUME 85.6 fL (80-94); MONOCYTES # (AUTO) 0.6 K/uL (0.8-1.0); MONOCYTES % (AUTO) 5.2 % (1.7-9.3); NEUTROPHILS # (AUTO) 9.9 K/uL (1.8-7.7); PLATELET COUNT (AUTO) 110 K/uL (140-450); RED BLOOD CELL COUNT(AUTO) 4.08 MIL/uL (4.20-6.10); RED CELL DISTRIBUTION WIDTH 19.2 % (11.6-13.7); WHITE BLOOD COUNT (AUTO) 11.4 K/uL (4.8-10.8)
--- NOTE | 2018-01-07 05:55 | NUR ---
DR. JAMISON @ BEDSIDE
[2018-01-07] MEDS: NITROGLYCERIN 2% 1 GM PKT TP SCH ×4 (06:00→23:32)
[2018-01-07 06:20] LABS: ANION GAP 15.7 (8-16); CARBON DIOXIDE 23.3 mmol/L (21-32); CHLORIDE 108 mmol/L (98-107); GLUCOSE 170 mg/dL (74-106); SODIUM SERUM 142 mmol/L (136-145)
[2018-01-07 06:21] LABS: CREATININE 2.9 mg/dL (0.7-1.3); UREA NITROGEN, BLOOD 70 mg/dL (7-18)
[2018-01-07 06:22] LABS: AMYLASE 45 U/L (25-115); LIPASE 383 U/L (73-393)
[2018-01-07] MEDS: BLOOD GLUCOSE MONITORING 1 DEV DEV FS SCH ×4 (06:27→20:21)
--- NOTE | 2018-01-07 06:35 | NUR ---
DR CHRIS @ BEDSIDE. MADE AWARE OF BUN 70 CREATININE 2.9 300 ML OUTPUT, BNP >5000. NO NEW ORDERS @ THIS TIME. MD STATED TO WAIT UNTIL AFTER FAMILY MEETING TODAY TO DETERMINE PLAN OF CARE. WILL CONTINUE TO OBSERVE.
[2018-01-07] MEDS: ALBUTEROL SULFATE/IPRATROPIU 3 ML SOL IH SCH ×3 (07:14→19:44)
[2018-01-07 07:21] LABS: ALBUMIN 1.6 g/dL (3.4-5.0); BILIRUBIN,DIRECT 0.3 mg/dL (0.0-0.3); TOTAL BILIRUBIN 0.7 mg/dL (0.0-1.0)
--- NOTE | 2018-01-07 07:30 | NUR ---
RECEIVED PT FROM PM NURSE, PT OPENS EYES, ABLE TO FOLLOW SIMPLE COMMANDS, NON VERBAL. PT ON TRACH COLLAR PORTEX SIZE 7 28% COOLAERSOL. NO S/S OF RESPIRATORY DISTRESS NOTED. BEDSIDE MONITOR SHOWS HR 60S.PT RIGHT SIDE EXTREMITIES FLACCID. LEFT SIDE WEAKNESS NOTED. PT HAS IV TO RIGHT HAND AND RIGHT ELBOW # 22, PATENT AND INTACT RUNNING AT D5 AT 55 MLS/HR. PT HAS OPEN WOUND TO G-TUBE. NPO EXCEPT MEDS. F/C IN PLACE WITH YELLOW URINE NOTED, PRECAUTION MEASURES IN PLACE. WILL CONTINUE TO MONITOR.
[2018-01-07 07:32] LABS: HEPATITIS A ANTIBODY IGM Negative (Negative); HEPATITIS B CORE AB TOTAL Negative (Negative); HEPATITIS B SURFACE ANTIGEN Negative (Negative)
--- NOTE | 2018-01-07 07:38 | NUR ---
RECEIVED PT ON COOL AERSOL [facility] SITE SECURE
[2018-01-07] MEDS ORDERED: ALBUMIN HUMAN 25% 100 ML IV SCH (08:00)
[2018-01-07] MEDS: FERROUS SULFATE 300 MG/5 ML UDC GT SCH ×2 (08:10→20:11)
[2018-01-07] MEDS: LACTOBACILLUS RHAMNOSUS GG 1 EACH CAP GT SCH (08:10)
[2018-01-07] MEDS: CALCIUM ACETATE 667 MG TAB PO SCH (08:10)
[2018-01-07] MEDS: levETIRAcetam 500 MG in NACL 0.9% 100 ML IV SCH ×2 (08:12→20:12)
[2018-01-07] MEDS: CARVEDILOL 3.125 MG TAB GT SCH ×2 (09:00→20:16)
[2018-01-07] MEDS: MEROPENEM 500 MG in NACL 0.9% 50 ML IV SCH ×2 (09:34→20:14)
[2018-01-07] MEDS: PANTOPRAZOLE 40 MG INJ VIAL IVP SCH (09:35)
--- NOTE | 2018-01-07 10:10 | NUR ---
HAVING CONVERSATION WITH PT'S SON ON THE PHONE.
[2018-01-07] MEDS ORDERED: FUROSEMIDE 20 MG/2 ML VIAL IVP SCH (10:30)
[2018-01-07] MEDS ORDERED: MORPHINE SULFATE 2 MG/ML SYR IVP PRN (11:05)
[2018-01-07] MEDS ORDERED: LORazepam 2 MG/ML VIAL IVP SCH (11:30)
--- NOTE | 2018-01-07 11:56 | NUR ---
DR. JAMISON STARTED TO INSERT JOHN CATH. [facility] TECH AT BEDSIDE. TIME OUT DONE. CONSENT OBTAINED BEFORE PROCEDURE, SIGNED BY PT'S SON. Addendum: 01/07/18 at 1157 by Balaji Avila RN RT AT BEDSIDE ALSO.
--- NOTE | 2018-01-07 12:25 | NUR ---
JOHN CATH DONE.
--- NOTE | 2018-01-07 13:00 | NUR ---
HOLD NITRO-BID 2% DUE TO PT BP 102/44, MADE AWARE.
--- NOTE | 2018-01-07 14:55 | NUR ---
OLD GT SITE TOMMY -SKIN RASHES AND EROSIONS WITH CONTINUOUSLY SMALL AMOUNT DRAINAGE OF POSSIBLE STOMACH FLUIDS CONTENT. AREA CLEAN AND VERSAEL APPLY. DR. JAMISON NOTIFY.PRIMARY RN AND CHARGE NURSES NOTIFY
--- NOTE | 2018-01-07 15:27 | NUR ---
FAXED CONCURRENT REVIEW TO [facility] PHYSICIAN [phone] PHONE KAJAL [phone] SPOKE WITH KAJAL VÁZQUEZ AM AND GAVE VERBAL REPORT.
[2018-01-07] MEDS: VANCOMYCIN 750 MG in DEXTROSE 5% 250 ML IV SCH (16:35)
--- NOTE | 2018-01-07 16:35 | NUR ---
TURNED AND REPOSITIONED PT , BED SHEET CHANGED. GOWN CHANGED. PT FINGER BS 170, NOTIFIED . PER DR. JAMISON. HOLD INSULIN COVERAGE.
--- NOTE | 2018-01-07 18:28 | NUR ---
HOLD NITRO-BID 2% PER DR. JAMISON AND DR. ROSE.
[2018-01-07] MEDS: DEXTROSE 5% 1,000 ML IV SCH (19:18)
--- NOTE | 2018-01-07 19:30 | NUR ---
assumed care of pt.initial assessment completed.pt asleep;easily arousable.sr on monitor.on trach to t piece fio2 30%; with shira catheter w/pigtail to rt ij.intact.with order ok to use shira cath; ivf infusing at 50ml/hr.w/peripheral iv saline lock to rt hand g22 and rt elbow g22.w/dry and intact dressing to abdomen; gtube site w/minimal drainage and surgical incision dry.w/charles catheter to bsd draining adequate amt of yellow urine.scrotal edema still noted.all extremities with pitting edema +2.all extremities w/weakness noted.no s/sx of pain noted. repositioned
--- NOTE | 2018-01-07 19:44 | NUR ---
RECEIVED ON A COOL AEROSOL AT 28%/6 LPM ON AND FUNCTIONING WELL TO INLINE SUCTION CATHETER WITH A PORTEX DFEN #7 AIRWAY CUFF PRESSURE CHECKED [id number] AMBU BAG NOTED AT HOB
[2018-01-07] MEDS: TAMSULOSIN 0.4 MG CAP GT SCH (20:11)
--- NOTE | 2018-01-07 20:45 | NUR ---
bs 176; insulin coverage not administered; pt on npo no s/sx of pain noted; due meds given except blood pressure medications; hold per md
--- NOTE | 2018-01-07 21:51 | NUR ---
dr gage in the unit.pt examined.updated on pts present condition.no new orders
[2018-01-07 22:17] LABS: HEPATITIS B SURFACE ANTIBODY Non Reactive (.)
[2018-01-08] VITALS (12 sets, daily range): BP systolic 101–126; BP diastolic 49–78
[2018-01-08] MEDS: DEXTROSE 5% 1,000 ML IV SCH (00:15)
--- NOTE | 2018-01-08 00:15 | NUR ---
leaking to gtube site noted; moderate amt of fluid; dressing changed
--- NOTE | 2018-01-08 01:55 | NUR ---
pt asleep; secretions suctioned as needed.flacc 0.repositioned.
--- NOTE | 2018-01-08 03:39 | NUR ---
pts condition remains unchanged.no sob noted.flacc 0.repositioned
[2018-01-08] MEDS: NITROGLYCERIN 2% 1 GM PKT TP SCH ×3 (05:18→18:00)
[2018-01-08 05:31] LABS: ANION GAP 5.5 (8-16); ASPARTATE AMINOTRANSFERASE 314 U/L (15-37); CARBON DIOXIDE 30.6 mmol/L (21-32); CHLORIDE 103 mmol/L (98-107); CREATININE 2.5 mg/dL (0.7-1.3); GLUCOSE 161 mg/dL (74-106); PHOSPHORUS 4.2 mg/dL (2.5-4.9); POTASSIUM 3.1 mmol/L (3.5-5.1); SODIUM SERUM 136 mmol/L (136-145); TOTAL BILIRUBIN 0.8 mg/dL (0.0-1.0); UREA NITROGEN, BLOOD 59 mg/dL (7-18)
[2018-01-08] MEDS ORDERED: DEXT 5% / NACL 0.9% 500 ML IV SCH (06:00)
--- NOTE | 2018-01-08 06:12 | NUR ---
PT ASLEEP; STILL ON TRACH TO T PIECE FIO2 28%.INTERMITTENT PRODUCTIVE COUGHING NOTED THIS SHIFT.SECRETIONS SUCTIONED.PT REPOSITIONED.NO BM NOTED
[2018-01-08 06:59] LABS: WHITE BLOOD COUNT (AUTO) 7.6 K/uL (4.8-10.8)
[2018-01-08 07:00] LABS: HEMATOCRIT 31.6 % (36-52); MEAN CORPUSCULAR HEMOGLOBIN 28 pg (27-31); MEAN CORPUSCULAR HGB CONC 32 g/dL (33-37); MEAN CORPUSCULAR VOLUME 87.4 fL (80-94); PLATELET COUNT (AUTO) 92 K/uL (140-450); RED BLOOD CELL COUNT(AUTO) 3.62 MIL/uL (4.20-6.10); RED CELL DISTRIBUTION WIDTH 18.1 % (11.6-13.7)
[2018-01-08] MEDS: ALBUTEROL SULFATE/IPRATROPIU 3 ML SOL IH SCH ×3 (07:00→18:34)
--- NOTE | 2018-01-08 07:05 | NUR ---
SXN PT SMALL AMT OF THICK YELLOW SECRETIONS, NO HHN GIVEN DUE TO PT SLEEPING WITH NO SIGNS OF DISTRESS NOTED
--- NOTE | 2018-01-08 07:20 | NUR ---
RECEIVED REPORT FROM CLIENT CARE REPRESENTATIVE. PATIENT RESPONDS TO VOICE. PUPILS ROUND AND REACTIVE TO LIGHT. DOBOFF TUBE IN RIGHT NARE. RIJ IN PLACE SIGHT COVERED ASYMPTOMATIC. TRACH TO OZ 6L 28%FI02. LUNG SOUNDS RHONCHI BILATERALLY. ABD WOUND DRESSING DRY AND INTACT WITH MINIMAL DRAINAGE. RANDALL CATH IN PLACE. VSS. NSR ON MONITOR WILL CONTINUE TO MONITOR.
[2018-01-08 07:36] LABS: EOSINOPHILS % (MANUAL) 5 % (0-4); LYMPHOCYTES % (MANUAL) 8 % (20-46); MONOCYTES % (MANUAL) 5 % (5-12)
[2018-01-08] MEDS: CALCIUM ACETATE 667 MG TAB PO SCH (08:00)
[2018-01-08] MEDS: BLOOD GLUCOSE MONITORING 1 DEV DEV FS SCH ×2 (08:08→11:43)
[2018-01-08] MEDS: FERROUS SULFATE 300 MG/5 ML UDC GT SCH ×2 (09:00→21:00)
[2018-01-08] MEDS: LACTOBACILLUS RHAMNOSUS GG 1 EACH CAP GT SCH (09:00)
[2018-01-08] MEDS: CARVEDILOL 3.125 MG TAB GT SCH ×2 (09:00→21:00)
--- NOTE | 2018-01-08 09:00 | NUR ---
SPOKE WITH DR JAMISON REGARDING USE OF THE NGT. HE TOLD ME TO HOLD ALL PO/GT MEDICATIONS.
[2018-01-08] MEDS: PANTOPRAZOLE 40 MG INJ VIAL IVP SCH (09:20)
[2018-01-08] MEDS: MEROPENEM 500 MG in NACL 0.9% 50 ML IV SCH ×2 (09:21→21:21)
[2018-01-08] MEDS: levETIRAcetam 500 MG in NACL 0.9% 100 ML IV SCH ×2 (09:21→21:21)
[2018-01-08] MEDS: INSULIN LISPRO SLIDING SCALE 100 UNITS/ML VIAL SUBQ PRN (09:23)
--- NOTE | 2018-01-08 09:35 | NUR ---
01/08/18 RD FOLLOW UP COMPLETED REFER TO NUTRITION PROGRESS NOTE UNDER CARE ACTIVITY FOR ESTIMATED NEEDS. RD RECOMMENDATIONS: 1. WHEN MEDICALLY ABLE CONTINUE NEPRO CARBSTEADY @35 ML/HR -PROVIDES DAILY: 840 ML, 1512KCALS, AND 68gm PROTEIN 2. FREE WATER FLUSH PER MD 3. CONTINUE TO CHECK AND REPLETE LYTES PRN. 4. RD TO FOLLOW-UP 2-3 DAYS, HIGH RISK [facility] [facility]
[2018-01-08] MEDS ORDERED: TPN PER PHARMACY MC PRN (10:50)
[2018-01-08] MEDS ORDERED: VANCOMYCIN PER PHARMACY MC PRN (11:25)
[2018-01-08] MEDS ORDERED: KCL 20 MEQ/WATER INJ PREMIX 200 ML IV SCH (11:30)
[2018-01-08] MEDS ORDERED: KCL 20 MEQ/WATER INJ PREMIX 100 ML IV SCH (11:30)
[2018-01-08] MEDS ORDERED: SKINTEGRITY HYDROGEL TP PRN (13:30)
[2018-01-08] MEDS ORDERED: SKINTEGRITY HYDROGEL TP SCH (14:00)
--- NOTE | 2018-01-08 14:50 | NUR ---
PT'S SON JANETTE CALLED. UPDATED ON PT'S CONDITION.
[2018-01-08] MEDS ORDERED: DEXT 5% /NACL 0.9% 1,000 ML IV SCH (14:55)
--- NOTE | 2018-01-08 15:06 | NUR ---
TRACH CARE DONE SXN PT MODERATE AMT OF YELLOW SECRETIONS PT IS RESTING AIRWAY IS PATENT
[2018-01-08] MEDS: VANCOMYCIN 750 MG in DEXTROSE 5% 250 ML IV SCH (16:34)
[2018-01-08] MEDS: BLOOD GLUCOSE MONITORING 1 DEV DEV MC SCH (18:13)
--- NOTE | 2018-01-08 18:15 | NUR ---
RECREATIONAL LEADER AT BEDSIDE
[2018-01-08] MEDS ORDERED: KCL 20 MEQ/WATER INJ PREMIX 200 ML IV ONE (18:50)
--- NOTE | 2018-01-08 19:10 | NUR ---
DR. JAQUEZ AT BEDSIDE TO SEE PATIENT.
--- NOTE | 2018-01-08 19:15 | NUR ---
RECEIVED BEDSIDE REPORT FROM MORNING SHIFT RN, CARMELO, FOR CONTINUITY OF CARE. PT IS AWAKE, NONVERBAL, VSS, AFEBRILE. TRACH TO T-PIECE AT FIO2=28%, O2 SAT 100%. LUNG SOUNDS COARSE ON UPPER BILATERAL LOBES, DIMINISHED ON LOWER BILATERAL BASES. SR ON POLISHER ALUMINUM. DHT IN PLACE IN RIGHT NARES, NPO. RANDALL CATHETER IN PLACE, URINE IS YELLOW. RIGH IJ, PIGTAIL INFUSING KCL AT 50ML/HR WITH D5. SKIN IS EDEMATOUS (BILATERAL LEGS/HANDS/ SCROTAL EDEMA. 1+ PITTING EDEMA IN BILATERAL LEGS). BOWEL SOUNDS HYPOACTIVE ON AUSCULTATION, ABDOMINAL WOUND DRESSING IS DRY/INTACT. HOB ELEVATED, SIDE RAILS UP X4, FALL AND STANDARD PRECAUTIONS MAINTAINED. Addendum: 01/08/18 at 2031 by Julianne Graham RN correction: KCL INFUSING AT 50ML/HR W/ D5NS.
--- NOTE | 2018-01-08 19:21 | NUR ---
GAVE REPORT TO MARKING STITCHER. PATIENT STABLE AT TIME OF REPORT.
[2018-01-08] MEDS ORDERED: MULTIVITAMIN-12 10 ML in DEXTROSE 50% 480 ML, AMINO ACIDS 8.5% 480 ML IV SCH ×3 (20:00)
--- NOTE | 2018-01-08 20:28 | NUR ---
CALLED DR. BOLAÑOS, INFORMED OF CURRENT MEDICATIONS TO BE GIVEN PRIOR TO TPN. ORDERED TO GIVE ALL PM MEDICATIONS PRIOR TO ADMINISTERING TPN. WILL CARRY OUT.
[2018-01-08] MEDS: TAMSULOSIN 0.4 MG CAP GT SCH (21:00)
--- NOTE | 2018-01-08 21:04 | NUR ---
CALLED DR. BOLAÑOS, INFORMED THAT ALL PO/GT MEDS HAVE HELD PRIOR SHIFT DUE TO LEAKING AT GT SITE. DR. BOLAÑOS ORDERED TO HOLD ALL PO/GT MEDS, AND ONLY GIVE THOSE ORDERED IV. WILL CARRY OUT.
--- NOTE | 2018-01-08 22:15 | NUR ---
SMALL BM, LOOSE STOOL, DARK GREEN-BROWN IN COLOR. CLEANSED PERINEAL AREA. REPOSITIONED PATIENT, PILLOW SUPPORT PROVIDED. SCDS ON BILATERAL LEGS. ORAL CARE, MOUTH MOISTURIZER PROVIDED. HOB ELEVATED ABOVE 30 DEG.
[2018-01-09] VITALS (10 sets, daily range): BP systolic 107–134; BP diastolic 58–73
[2018-01-09] MEDS: BLOOD GLUCOSE MONITORING 1 DEV DEV MC SCH ×4 (00:30→18:00)
--- NOTE | 2018-01-09 00:46 | NUR ---
PATIENT IS SLEEPING QUIETLY AT THIS TIME, AFEBRILE, VSS, TPN INFUSING AT 40ML/HR TO RIGHT IJ, SCDS ON BILATERAL LEGS, HOB AND LEGS ELEVATED. SUCTIONING PROVIDED, CLEAR/WHITE SECRETIONS NOTED.
--- NOTE | 2018-01-09 01:00 | NUR ---
HELD NITRO, BP 111/59. TPN INFUSING AT THIS TIME.
--- NOTE | 2018-01-09 04:40 | NUR ---
BED BATH PROVIDED, FRESH LINENS, REPOSITIONING AND PILLOW SUPPORT PROVIDED. MINIMAL, GREEN-BROWN STOOL, CLEANESED PERINEAL AREA, HYDROGEL/HYROGUARD APPLIED TO AFFECTED AREAS. CATHETER KIT PROVIDED. VAP ORAL CARE PROVIDED, SUCTIONING PROVIDED X2, WHITE/CLEAR SPUTUM NOTED. LIGHT JARETT URINE IN RANDALL CATHETER, 700ML EMPTIED.
--- NOTE | 2018-01-09 05:00 | NUR ---
CHARISSA SIMEON, AT BEDSIDE FOR BLOOD DRAW.
[2018-01-09 05:14] LABS: EOSINOPHILS # (AUTO) 0.4 K/uL (0-0.4); WHITE BLOOD COUNT (AUTO) 7.6 K/uL (4.8-10.8)
[2018-01-09 05:18] LABS: BASOPHILS % (AUTO) 0.6 % (0.0-2.0); EOSINOPHILS % (AUTO) 5.4 % (0.0-4.0); HEMATOCRIT 31.7 % (36-52); LYMPHOCYTES # (AUTO) 0.8 K/uL (2.0-11.5); MEAN CORPUSCULAR HEMOGLOBIN 27 pg (27-31); MEAN CORPUSCULAR HGB CONC 32 g/dL (33-37); MEAN CORPUSCULAR VOLUME 86.4 fL (80-94); MONOCYTES # (AUTO) 0.6 K/uL (0.8-1.0); MONOCYTES % (AUTO) 8.4 % (1.7-9.3); NEUTROPHILS # (AUTO) 5.7 K/uL (1.8-7.7); NEUTROPHILS % (AUTO) 74.6 % (42.2-75.2); PLATELET COUNT (AUTO) 84 K/uL (140-450); RED BLOOD CELL COUNT(AUTO) 3.67 MIL/uL (4.20-6.10); RED CELL DISTRIBUTION WIDTH 19.4 % (11.6-13.7)
[2018-01-09 05:46] LABS: ANION GAP 10.1 (8-16); CARBON DIOXIDE 28.9 mmol/L (21-32); CHLORIDE 107 mmol/L (98-107); GLUCOSE 153 mg/dL (74-106); SODIUM SERUM 142 mmol/L (136-145); UREA NITROGEN, BLOOD 48 mg/dL (7-18)
[2018-01-09 05:49] LABS: MAGNESIUM 2.2 mg/dL (1.8-2.4); PHOSPHORUS 2.9 mg/dL (2.5-4.9)
[2018-01-09] MEDS: NITROGLYCERIN 2% 1 GM PKT TP SCH ×4 (06:00→18:00)
[2018-01-09] MEDS: ALBUTEROL SULFATE/IPRATROPIU 3 ML SOL IH SCH ×3 (06:13→19:21)
--- NOTE | 2018-01-09 06:13 | NUR ---
pt sleeping with no signs of distress noted at this time, no hhn given, sxn pt small amt of yellow secretions,changed water.
--- NOTE | 2018-01-09 06:54 | NUR ---
DR. JAMISON AT BEDSIDE TO SEE PT. UPDATED ON PT CONDITIONS.
[2018-01-09] MEDS: INSULIN LISPRO SLIDING SCALE 100 UNITS/ML VIAL SUBQ PRN ×2 (07:27→12:23)
--- NOTE | 2018-01-09 07:30 | NUR ---
RECEIVED REPORT FROM NIGHT NURSE. PT IS AWAKE, NONVERBAL, ABLE TO FOLLOW SIMPLE COMMANDS, TAGALOG SPEAKING PER REPORT. NORMAL SINUS RHYTHM ON MONITOR. PT IS TRACH TO T-PIECE WITH FIO2 28%. BILATERAL LUNGS SOUND COARSE, DIMINISHED LOWER LOBES. DOBOFF TUBE IN PLACE TO RIGHT NARE. ABDOMINAL DRESSING DRY AND INTACT WITH MINIMAL DRAINAGE. JOHN CATH TO RIGHT IJ ASYMPTOMATIC AND IN PLACE, PT IS RECEIVING TPN AT 40 ML/HR. RANDALL CATH IN PLACE DRAINING URINE TO GRAVITY DRAINAGE BAG. EDEMA NOTED TO BUE/BLE. FLACC 0, AFEBRILE. VSS. BED LOCKED IN LOWEST POSITION, HOB 30 DEGREES, AND CALL LIGHT WITHIN REACH. WILL CONTINUE TO MONITOR.
--- NOTE | 2018-01-09 07:30 | NUR ---
PROVIDED BEDSIDE REPORT TO MORNING SHIFT RN, SCARLETT, FOR CONTINUITY OF CARE. PT IN STABLE CONDITION AT THIS TIME.
[2018-01-09] MEDS: CALCIUM ACETATE 667 MG TAB PO SCH (08:00)
--- NOTE | 2018-01-09 08:43 | NUR ---
VERIFIED WITH DR. TROTTER THAT ALL PO/GT MEDS ARE TO BE HELD DUE TO LEAKING AT GT SITE.
[2018-01-09] MEDS: CARVEDILOL 3.125 MG TAB GT SCH ×2 (08:44→21:00)
[2018-01-09] MEDS: FERROUS SULFATE 300 MG/5 ML UDC GT SCH ×2 (08:45→21:00)
[2018-01-09] MEDS: LACTOBACILLUS RHAMNOSUS GG 1 EACH CAP GT SCH (08:45)
[2018-01-09] MEDS ORDERED: levETIRAcetam 100 MG/ML VIAL IV ONE (08:45)
[2018-01-09] MEDS: MEROPENEM 500 MG in NACL 0.9% 50 ML IV SCH ×2 (08:55→20:35)
[2018-01-09] MEDS: PANTOPRAZOLE 40 MG INJ VIAL IVP SCH (08:55)
[2018-01-09] MEDS: levETIRAcetam 500 MG in NACL 0.9% 100 ML IV SCH ×2 (08:55→21:14)
--- NOTE | 2018-01-09 09:16 | NUR ---
MEDICATIONS ADMINISTERED ORDERED. WILL CONTINUE TO MONITOR.
--- NOTE | 2018-01-09 11:17 | NUR ---
DAMARIS NOTED ON RN RESOURCE NURSE. PT IS ASLEEP AT THIS TIME. VSS. WILL CONTINUE TO MONITOR.
--- NOTE | 2018-01-09 11:35 | NUR ---
DR. NINO AND RESIDENT GROUP IN TO SEE PT. MADE AWARE OF PT'S BIGEMINIES. WILL FOLLOW UP ON ORDERS. PER DR. JAMISON, HOLD NITRO-BID 2% PER PARAMETERS. PT'S BP IS 134/73 AT THIS TIME.
--- NOTE | 2018-01-09 13:37 | NUR ---
NO CHANGE OF CONDITION AT THIS TIME. PT IS SLEEPING. VSS, FLACC 0. SAFETY PRECAUTIONS IN PLACE. WILL CONTINUE TO MONITOR.
--- NOTE | 2018-01-09 13:51 | NUR ---
PT SLEEPING WITH NO SIGNS OF DISTRESS NOTED AT THIS TIME AIRWAY IS PATENT AND NO HHN GIVEN
--- NOTE | 2018-01-09 14:45 | NUR ---
PT'S DAUGHTER, MICHEAL, AT BEDSIDE. UPDATES GIVEN ON PT'S CONDITION. VITAL SIGNS STABLE. NO ACUTE DISTRESS NOTED AT THIS TIME. WILL CONTINUE TO MONITOR.
--- NOTE | 2018-01-09 16:05 | NUR ---
BED BATH GIVEN AND REPOSITIONED FOR COMFORT. PT TOLERATED WELL. VSS.
[2018-01-09] MEDS: VANCOMYCIN 750 MG in DEXTROSE 5% 250 ML IV SCH (17:23)
--- NOTE | 2018-01-09 17:45 | NUR ---
PT SEEN AND EXAMINED BY DR. JAQUEZ. WILL FOLLOW UP WITH NEW ORDERS.
--- NOTE | 2018-01-09 19:05 | NUR ---
received report from AM shift. Pt awake lying on his rt side. No acute distress noted at this time. Coarse lung sounds on andreas bases, Trach on tpiece 28% FiO2, sats 100. 75 HR on monitor no ectopy. GT site dressing dry and intact. +1 pitting edema on BUE and BLE. TPN and TKO running on ana cath on RIJ, site benign.
--- NOTE | 2018-01-09 19:19 | NUR ---
REPORT GIVEN TO DEVELOPMENTAL BEHAVIORAL PHYSICIAN RN FOR CONTINUITY OF CARE. PT IS IN STABLE CONDITION.
[2018-01-09] MEDS ORDERED: MULTIVITAMIN-12 10 ML in DEXTROSE 50% 600 ML, AMINO ACIDS 8.5% 600 ML IV SCH ×3 (20:00)
[2018-01-09] MEDS: TAMSULOSIN 0.4 MG CAP GT SCH (21:00)
--- NOTE | 2018-01-09 21:30 | NUR ---
DR. PAULA @ BEDSIDE
--- NOTE | 2018-01-09 22:15 | NUR ---
FOUND NGT PULLED OUT. INFORMED MD. DR BOLAÑOS MADE AWARE. PT TURNED AND REPOSITIONED. NO ACUTE DISTRESS NOTED.
--- NOTE | 2018-01-09 22:18 | NUR ---
DR. TABOR @ BEDSIDE. INFORMED PT PULLED NGT OUT.
--- NOTE | 2018-01-09 22:20 | NUR ---
INFORMED MD ABOUT EKG ARRYTHMIAS, NO NEW ORDERS. WILL CONTINUE TO OBSERVE
[2018-01-10 00:01] VITALS: BP_SYST 142; BP_SYST 146; BP_DIAS 80; BP_DIAS 83
[2018-01-10] MEDS: BLOOD GLUCOSE MONITORING 1 DEV DEV MC SCH ×5 (00:26→23:14)
[2018-01-10] MEDS: INSULIN LISPRO SLIDING SCALE 100 UNITS/ML VIAL SUBQ PRN ×5 (00:30→23:14)
[2018-01-10 04:00] VITALS: BP 122/68
[2018-01-10] MEDS: NITROGLYCERIN 2% 1 GM PKT TP SCH ×5 (06:13→23:10)
[2018-01-10] MEDS: ALBUTEROL SULFATE/IPRATROPIU 3 ML SOL IH SCH ×3 (07:00→20:30)
--- NOTE | 2018-01-10 07:02 | NUR ---
report given to Kateryna DE JESUS AM shift for continuation of care. Pt in stable condition.
--- NOTE | 2018-01-10 07:09 | NUR ---
sxn pt small amt of thin white secretions, b\s are clear and pt is sleeping with no signs of distress noted at this time no hhn given
[2018-01-10 07:29] LABS: BASOPHILS % (AUTO) 0.1 % (0.0-2.0); EOSINOPHILS # (AUTO) 0.3 K/uL (0-0.4); LYMPHOCYTES # (AUTO) 0.6 K/uL (2.0-11.5); LYMPHOCYTES % (AUTO) 6.7 % (20.5-51.1); MEAN CORPUSCULAR HEMOGLOBIN 27 pg (27-31); MEAN CORPUSCULAR HGB CONC 31 g/dL (33-37); MEAN CORPUSCULAR VOLUME 87.2 fL (80-94); MONOCYTES # (AUTO) 0.7 K/uL (0.8-1.0); MONOCYTES % (AUTO) 7.1 % (1.7-9.3); NEUTROPHILS % (AUTO) 83.1 % (42.2-75.2); PLATELET COUNT (AUTO) 70 K/uL (140-450); RED BLOOD CELL COUNT(AUTO) 3.66 MIL/uL (4.20-6.10); RED CELL DISTRIBUTION WIDTH 19.5 % (11.6-13.7); WHITE BLOOD COUNT (AUTO) 9.6 K/uL (4.8-10.8)
--- NOTE | 2018-01-10 07:37 | NUR ---
RECEIVED REPORT FROM MULE SPINNER. PATIENT VSS. NSR WITH PVCS ON MONITOR. RIGHT JANICE CATH IN PLACE TPN RUNNING. SKIN WARM AND DRY. TRACH TO T TUBE. LUNGS SOUNDS DIMINISHED. PUPILS ROUND AND REACTIVE TO LIGHT. BOWEL SOUND HYPOACTIVE. ABD WOUND DRESSING DRY AND INTACT. RANDALL CATH IN PLACE. SCROTAL EDEMA NOTED. GENERALIZED EDEMA TO BUE AND BLE NOTED. WILL CONTINUE TO MONITOR.
[2018-01-10 07:45] LABS: MAGNESIUM 2.2 mg/dL (1.8-2.4); PHOSPHORUS 2.3 mg/dL (2.5-4.9)
[2018-01-10 07:59] LABS: ANION GAP 7.7 (8-16); CARBON DIOXIDE 30.1 mmol/L (21-32); CHLORIDE 107 mmol/L (98-107); CREATININE 1.7 mg/dL (0.7-1.3); GLUCOSE 178 mg/dL (74-106); POTASSIUM 3.8 mmol/L (3.5-5.1); SODIUM SERUM 141 mmol/L (136-145); UREA NITROGEN, BLOOD 34 mg/dL (7-18)
[2018-01-10 08:00] VITALS: BP 150/85
[2018-01-10] MEDS: CALCIUM ACETATE 667 MG TAB PO SCH (08:00)
--- NOTE | 2018-01-10 08:00 | NUR ---
PATIENT REFUSED ORAL CARE. Addendum: 01/10/18 at 1448 by Kateryna Rivera RN EDUCATION PROVIDED.
--- NOTE | 2018-01-10 08:48 | NUR ---
Railroad Surveyor Note: I faxed patient's microbiology results to [facility].
[2018-01-10] MEDS: CARVEDILOL 3.125 MG TAB GT SCH ×2 (09:00→20:46)
[2018-01-10] MEDS: LACTOBACILLUS RHAMNOSUS GG 1 EACH CAP GT SCH (09:00)
[2018-01-10] MEDS: FERROUS SULFATE 300 MG/5 ML UDC GT SCH ×2 (09:00→20:46)
[2018-01-10] MEDS: PANTOPRAZOLE 40 MG INJ VIAL IVP SCH (09:28)
[2018-01-10] MEDS: levETIRAcetam 500 MG in NACL 0.9% 100 ML IV SCH ×2 (09:28→21:16)
--- NOTE | 2018-01-10 09:30 | NUR ---
DR CABAN AT BEDSIDE.
--- NOTE | 2018-01-10 09:35 | NUR ---
CALLED JANETTE ARANDA PATIENT'S SON TO OBTAIN CONSENT FOR PICC LINE INSERTION AND EGD/PEG PLACEMENT. RISKS AND BENEFITS EXPLAINED. ALL QUESTIONS AND CONCERNS ANSWERED. TELEPHONE CONSENT VERIFIED BY ANOTHER RN.
[2018-01-10] MEDS: MEROPENEM 500 MG in NACL 0.9% 50 ML IV SCH ×2 (09:36→20:40)
--- NOTE | 2018-01-10 10:30 | NUR ---
PICC LINE NURSE AT BEDSIDE. Addendum: 01/10/18 at 1056 by Kateryna Rivera RN U/S ALSO AT BEDSIDE
--- NOTE | 2018-01-10 10:56 | NUR ---
I CALLED [facility] AND SPOKE WITH GIANCARLO. HE SAID THEY DO NO DO TPN AT THEIR FACILITY. I CALLED KAJAL FROM [facility] AND SHE SAID WE WOULD HAVE TO LOOK FOR A FAILITY FROM [facility]. SHE SAID TO TRY 1. [facility] IN [place] [phone] 2. [facility] [phone] 3. [facility] [phone] 4 [facility] [phone] 5. [facility] [phone] 6. [facility] [phone] 7. [facility] [phone] 8. [facility] [phone]
--- NOTE | 2018-01-10 10:56 | NUR ---
XRAY AT BEDSIDE
--- NOTE | 2018-01-10 11:31 | NUR ---
FAXED CONCURRENT REVIEW TO [facility] PHYSICIAN [phone] PHONE KAJAL [phone]
[2018-01-10 12:00] VITALS: BP 144/92
--- NOTE | 2018-01-10 12:00 | NUR ---
PATIENT REFUSED ORAL CARE. EDUCATION PROVIDED.
--- NOTE | 2018-01-10 14:50 | NUR ---
PATIENTS DAUGHTER AT BEDSIDE.
--- NOTE | 2018-01-10 15:46 | NUR ---
PAGED DR. NORTH REGARDING PATIENTS RUNS OF BIGEMINY PVCS. WILL WAIT TO HEAR BACK.
--- NOTE | 2018-01-10 15:48 | NUR ---
WHIP SAWYER AT BEDSIDE
--- NOTE | 2018-01-10 15:56 | NUR ---
trach care done changed trach gauze and water and sxn pt small amt of yellow secretions
[2018-01-10 16:00] VITALS: BP 143/78
[2018-01-10] MEDS: VANCOMYCIN 750 MG in DEXTROSE 5% 250 ML IV SCH (16:46)
--- NOTE | 2018-01-10 17:52 | NUR ---
RT AT BEDSIDE AFTER BEING CALLED BECAUSE PATIENT DISPLAYED SIGNS OF LABORED BREATHING INCLUDING NASAL FLARING AND USE OF ACCESSORY MUSCLES. WILL FOLLOW UP
[2018-01-10] MEDS: ALBUTEROL SULFATE/IPRATROPIU 3 ML SOL IH PRN (17:54)
--- NOTE | 2018-01-10 19:17 | NUR ---
Gave report to [facility] tele nurse, Len, for continuity of care. Patient stable at time of report.
--- NOTE | 2018-01-10 19:20 | NUR ---
RECEIVED PT TRANSFER FROM ICU, EYES OPEN WITH TRACKING BUT APHASIC, WITH TRACH TO T PIECE AT 7L O2, VITAL SIGNS TAKEN, BP SLIGHTLY ELEVATED, FLACC-0, NO RESP DISTRESS NOTED, TPN AT 50ML INFUSING WELL VIA RT IJ JOHN CATH WITH PIG TAIL, LEFT UA PICC LINE IN PLACE, WITH DR'S ORDER FOR OK TO BE USE, ABDOMINAL DRESSING DRY AND INTACT, RANDALL CATHETER IN PLACE DRAINING WELL, MAINTAINED ON NPO DUE TO NO NGT/GT AT THIS TIME, SAFETY MEASURES IN LACE, WILL REPOSITION Q2H AND OFFLOAD PRESSURE AREAS.
[2018-01-10 20:00] VITALS: BP 154/93
[2018-01-10] MEDS ORDERED: INSULIN REGULAR IV SCH (20:00)
[2018-01-10] MEDS ORDERED: MULTIVITAMIN IV SCH (20:00)
[2018-01-10] MEDS ORDERED: HUMAN IV SCH (20:00)
[2018-01-10] MEDS ORDERED: DEXTROSE 50% IV SCH (20:00)
[2018-01-10] MEDS ORDERED: [UNRECOGNIZED DRUG - OTHER] IV SCH (20:00)
[2018-01-10] MEDS: TAMSULOSIN 0.4 MG CAP GT SCH (20:46)
--- NOTE | 2018-01-10 20:53 | NUR ---
UNABLE TO GIVE DUE PO/GT MEDS DUE TO NO NGT OR G-TUBE IN PLACE AT THIS TIME, MAINTAINED ON NPO, PT FOR EGD AND PEG PLACEMENT TOMORROW BY DR Jr CHAHAL, CONSENT IN THE CHART.
--- NOTE | 2018-01-10 23:00 | NUR ---
BLOOD SUGAR CHECKED WITH 180 RESULT, COVERAGE GIVEN, VITAL SIGNS TAKEN, BP SLIGHTLY ELEVATED, ASYMPTOMATIC, FLACC-0, NO DISTRESS NOTED, REPOSITIONED TO LEFT SIDE, ORAL CARE DONE USING VAP KIT, SUCTIONED PRN WITH MODERATE WHITISH SECRETION NOTED, TPN INFUSING WELL, CONTINUE TO MONITOR CLOSELY.
[2018-01-11] VITALS (12 sets, daily range): BP systolic 123–176; BP diastolic 75–105
--- NOTE | 2018-01-11 03:40 | NUR ---
PT SLEEPING, OPEN EYES TO TOUCH, VITAL SIGNS TAKEN, BP SLIGHTLY ELEVATED, NO RESP DISTRESS NOTED, FLACC-0, SUCTION PRN, REPOSITIONED AND OFFLOAD PRESSURE AREAS, MONITORED CLOSELY.
[2018-01-11] MEDS: NITROGLYCERIN 2% 1 GM PKT TP SCH ×3 (05:13→17:32)
[2018-01-11] MEDS: INSULIN LISPRO SLIDING SCALE 100 UNITS/ML VIAL SUBQ PRN ×3 (05:21→17:37)
[2018-01-11] MEDS: BLOOD GLUCOSE MONITORING 1 DEV DEV MC SCH ×3 (05:22→17:25)
--- NOTE | 2018-01-11 06:10 | NUR ---
AM LABS DRAWN VIA LT UA PICC LINE WITH GOOD BLOOD RETURN, NO DISTRESS AT THIS TIME, MONITORED CLOSELY.
[2018-01-11] MEDS: ALBUTEROL SULFATE/IPRATROPIU 3 ML SOL IH SCH ×3 (06:39→19:07)
--- NOTE | 2018-01-11 07:18 | NUR ---
PT SLEEPING, NO DISTRESS NOTED, REPORT GIVEN TO LIZA BALGEY FOR CONTINUITY OF CARE.
--- NOTE | 2018-01-11 07:45 | NUR ---
PATIENT WAS SLEEPING COMFORTABLY, EASILY AROUSABLE BY NAME. RESPIRATION EVEN, UNLABOR ON 28% O2. SUCTION WAS GIVEN. SKIN DRY AND WARM. PICC LINE AND CENTRAL LINE WERE PATENT AND INTACT. RANDALL DRAINING WELL. FLACC 0. DRESSING CLEAN AND INTACT. PLAN OF CARE WAS DISCUSSED WITH PATIENT. BED AT LOW POSITION, SIDE RAILS UP. CALL LIGHT WITHIN REACH
[2018-01-11 07:52] LABS: ANION GAP 11.4 (8-16); CARBON DIOXIDE 27.6 mmol/L (21-32); CHLORIDE 107 mmol/L (98-107); CREATININE 1.5 mg/dL (0.7-1.3); GLUCOSE 171 mg/dL (74-106); SODIUM SERUM 142 mmol/L (136-145); UREA NITROGEN, BLOOD 29 mg/dL (7-18)
[2018-01-11] MEDS: CALCIUM ACETATE 667 MG TAB PO SCH (08:00)
[2018-01-11] MEDS ORDERED: METOPROLOL 5 MG/5 ML VIAL IV PRN (08:15)
--- NOTE | 2018-01-11 08:16 | NUR ---
DR. CAMARA WAS MADE AWARE OF PATIENT'S BP 184/110 AFTER RECHECKING, OS SAT 85%, HR 112. RT WAS NOTIFIED.
[2018-01-11 08:18] LABS: MAGNESIUM 2.3 mg/dL (1.8-2.4); PHOSPHORUS 2.4 mg/dL (2.5-4.9)
--- NOTE | 2018-01-11 08:19 | NUR ---
CALLED TO PT'S ROOM PT DESAT TO 88% HR112 RR 24 CHANGED PROBE TO DIFFERENT FINGER AND INCREASED FIO2 TO 40% CA AND O2 SAT 92%
[2018-01-11] MEDS: CARVEDILOL 3.125 MG TAB GT SCH ×2 (08:29→21:00)
[2018-01-11] MEDS: LACTOBACILLUS RHAMNOSUS GG 1 EACH CAP GT SCH (08:29)
[2018-01-11] MEDS: FERROUS SULFATE 300 MG/5 ML UDC GT SCH ×2 (08:29→21:00)
[2018-01-11] MEDS: PANTOPRAZOLE 40 MG INJ VIAL IVP SCH (08:31)
[2018-01-11] MEDS: levETIRAcetam 500 MG in NACL 0.9% 100 ML IV SCH ×2 (08:32→20:17)
--- NOTE | 2018-01-11 09:03 | NUR ---
PATIENT AWAKE, ALERT. RESPIRATION EVEN, UNLABOR ON 40% O2. SUCTION AND ORAL CARE WERE GIVEN. MEDS WERE GIVEN PER ORDER. WILL CONTINUE TO MONITOR
[2018-01-11] MEDS: MEROPENEM 500 MG in NACL 0.9% 50 ML IV SCH ×2 (09:45→20:17)
--- NOTE | 2018-01-11 09:50 | NUR ---
PATIENT WAS SLEEPING COMFORTABLY. RESPIRATION EVEN, UNLABOR ON 40% O2. SUCTION WAS GIVEN. NO DISTRESS NOTED AT THIS TIME. BP IS STABLE
[2018-01-11] MEDS ORDERED: MIDAZOLAM 2 MG/2 ML VIAL ONE (11:15)
[2018-01-11] MEDS ORDERED: diphenhydrAMINE 50 MG/ML VIAL ONE (11:15)
[2018-01-11] MEDS ORDERED: fentaNYL 0.05 MG/ML VIAL ONE (11:15)
--- NOTE | 2018-01-11 12:18 | NUR ---
ORDER FOR MINDYISSA BAPTISTE CALLED TRACE MTZ FROM [facility] AND FAXED FACE SHEET.
--- NOTE | 2018-01-11 12:19 | NUR ---
PATIENT AWAKE, RESPONSIVE TO NAME. RESPIRATION EVEN, UNLABOR ON 40% O2. TRACH SUCTION AND ORAL CARE WERE GIVEN. VS IS STABLE. CALL LIGHT WITHIN REACH
[2018-01-11 12:45] LABS: PROTHROMBIN TIME 11.5 secs (10.8-13.4)
--- NOTE | 2018-01-11 13:23 | NUR ---
pt sleeping with no signs of distress noted at this time, no hhn given
--- NOTE | 2018-01-11 14:49 | NUR ---
PATIENT BECAME LETHARGIC, UNRESPONSIVE TO PAIN. BS 188, VS 115/52, HR 86, SAT 98%, TRACH SUCTION WAS GIVEN. DR. QUIGLEY WAS AT BEDSIDE. ADVISED TO CONTINUE TO MONITOR CLOSELY. RT WAS PAGED
[2018-01-11] MEDS ORDERED: FUROSEMIDE 40 MG/4 ML VIAL IVP SCH ×2 (15:00→16:15)
[2018-01-11] MEDS: ALBUTEROL SULFATE/IPRATROPIU 3 ML SOL IH PRN (15:04)
--- NOTE | 2018-01-11 15:04 | NUR ---
CALLED TO PT'S ROOM DUE TO LIZA BAGLEY STATING THAT PT IS ASKING FOR BREATHING TX WENT TO ASSES PT AND YES PT IS SHALLOW BREATHING WITH O2 SAT OF 98% ON 40% CA, SXN PT SMALL AMT OF YELLOW SECRETIONS, GAVE BREATHING TX AND PT IS STILL SHALLOW BREATHING INFORMED LIZA BAGLEY THAT THERE IS NO CHANGE IN BREATHING PATTERN ALSO DID TRACH CARE AND TRACH TIE WAS REAL LOOSE, SECURED TRACH TIE AND INFORMED RN KEVYN NO TO MOVE TRACH TIE, IN ROOM WITH PT.
--- NOTE | 2018-01-11 15:19 | NUR ---
PATIENT AWAKE, ALERT, RESPONSIVE TO NAME. MEDS WERE HELD DUE TO BP TRENDING DOWN. DR. TROTTER WAS MADE AWARE
--- NOTE | 2018-01-11 15:50 | NUR ---
PATIENT WAS TRANSFERRED TO ICU PER ORDER. VS IS STABLE TO TRANSFER
[2018-01-11] MEDS ORDERED: VANCOMYCIN PER PHARMACY MC PRN (15:55)
--- NOTE | 2018-01-11 15:58 | NUR ---
01/11/18 RD FOLLOW UP COMPLETED PLEASE REFER TO NUTRITION ASSESSMENT UNDER CARE ACTIVITY FOR ESTIMATED NUTRITIONAL NEEDS. 1.CONTINUE TPN MEDICALLY NECESSARY GRADUALLY INCREASE KCAL -THIS WILL PROVIDE PT WITH 1200 ML OF VOLUME, 564 KCAL, AND 39 GM OF PROTEIN, WHICH MEETS 33% OF ESTIMATED PROTEIN NEEDS AND 58% OF ESTIMATED KCAL NEEDS. 2. IF/WHEN PT IS MEDICALLY STABLE TO START TUBE FEEDING CONSIDER ADVANCING TO NEPRO @35 ML/HR 3. RD TO FOLLOW-UP 2-3 DAYS, HIGH RISK HOLLEY CARTER RD
--- NOTE | 2018-01-11 16:00 | NUR ---
PT MOVED TO ICU 3 DUE TO INCREASED WOB AND PER SIRRI TO PLACE ON CARESCAPE VENT SETTINGS AC14 VT 500 PEEP 5 FIO2 50% TO KEEP O2 SAT ABOVE 92% ALARMS ON AND AND AUDIBLE AND AMBU BAG AT SIDE OF VENT AND VENT IS PLUGGED INTO RED OUTLET. B\S ARE COARSE BILATERALLY, PT IS TRACH WITH PORTEX 7 AND SKIN INTEGRITY IS INTACT.
--- NOTE | 2018-01-11 16:00 | NUR ---
TRANSFERRED IN FROM TELE. THIS 82 YR. OLD SWAZI MALE PER BED ACCPD. BY RT AND RN DUE TO ALOC AND SHALLOW RESPIRATIONS. OPENED EYES WHEN NAME IS CALLED. NODDED HEAD WHEN ASKED IF HE FEELS BETTER. RESP. SHALLOW. RHONCHI HEARD ON AUSCULATION. TRACH CONNECTED TO VENT TV 500, FI02 50%, AC 14/MIN. SUCTIONED SMALL AMT. WHITISH SECRETIONS FROM TRACH. VAP ORAL CARE DONE. RT IJ JOHN CATH INTACT. LT UA PICC LINE INTACT AND PATENT. SL. BLEEDING NOTED ON [id number] SITE. TPN INFUSING AT 50 M,L/HR VIA PICC LINE.
--- NOTE | 2018-01-11 16:11 | NUR ---
GAVE VERBAL REPORT TO KAJAL FROM [facility]. ORDER FOR MINDYISSA BAPTISTE. TRACE BIBI HERE EARLIER TO DO EVAL. I GAVE HER THE PHONE NUMBER TO PAULINA FROM [facility]. I SPOKE WITH KAJAL AND SHE WAS WORKING ON AN AUTH FOR [place]. SHE SAID FOR TRANSPORT USE [facility] [phone]. IF AUTH NEEDED, AUTH [id number]. I CALLED TRACE BIBI FROM [place]. THE PATIENT HAS BEEN ACCEPTED AT [address] [address] PHONE FOR THE HOSPITAL [phone]. WAITING FOR ORDER. INFORMED DR. TROTTER.
[2018-01-11 16:14] LABS: TRANSFERRIN 133 mg/dL (200-370)
[2018-01-11] MEDS ORDERED: KCL 20 MEQ/WATER INJ PREMIX 100 ML IV SCH (16:15)
--- NOTE | 2018-01-11 16:15 | NUR ---
CALLED PT'S SON JANETTE. INFORMED OF TRANSFER OF PT. TO ICU.
--- NOTE | 2018-01-11 16:26 | NUR ---
DR. TROTTER CALLED. PATIENT WAS TRANSFERED TO ICU PUT ON VENT. INFORMED TRACE MTZ THAT THE PATIENT WENT BACK TO ICU ON VENT. WILL HOLD DISCHARGE UNTIL TOMORROW. TRACE TMZ AWARE AND KAJAL [facility] AWARE.
--- NOTE | 2018-01-11 16:30 | NUR ---
02 SAT 100%. RESP EASY AND REGULAR. NO DISTRESS NOTED.
--- NOTE | 2018-01-11 16:50 | NUR ---
k RIDER 20MEQ 100 ML STARTED AT 50ML/HR VIA LEFT UPPER ARM PICC LINE.
--- NOTE | 2018-01-11 16:51 | NUR ---
LASIX 40 MG IVP GIVEN ORDERED.
--- NOTE | 2018-01-11 17:35 | NUR ---
PT'S SON JANETTE AT BEDSIDE. UPDATED ON PT'S CONDITION. AWARE AND AGREES ON THE PLAN TO TRANSFER PT TO [place].
[2018-01-11] MEDS ORDERED: VANCOMYCIN 500 MG in DEXTROSE 5% 100 ML IV SCH (18:00)
--- NOTE | 2018-01-11 18:05 | NUR ---
CONSENT TO TRANSFER TO [place] SIGNED BY PEG SAVAGE.
--- NOTE | 2018-01-11 18:30 | NUR ---
MORE RESPONSIVE. FACIAL GRIMACING NOTED WHEN REPOSITIONED. DRESSINGS OVER G TUBE SITE WITH SMALL AMT BILE COLORED DRAINAGE. DRESSINGS CHANGED. TRYING TO PULL ABD. DRESSINGS WITH HIS LEFT HAND. REORIENTED PRN. WARM COMPRESS APPLIED TO LEFT ARM. BOTH UPPER EXT. ELEVATED ON PILLOWS. HEELS OFFLOADED WITH PILLOWS.
--- NOTE | 2018-01-11 19:11 | NUR ---
ARUN CHO A BESIDE TO COLLECT SPUTUM.
--- NOTE | 2018-01-11 19:16 | NUR ---
REPORT GIVEN TO NOC RN FOR CONTINUITY OF CARE. PATIENT IN STABLE CONDITION.
--- NOTE | 2018-01-11 19:19 | NUR ---
RECEIVED BEDSIDE REPORT FROM MORNING SHIFT RN FOR CONTINUITY OF CARE. PT IS ASLEEP IN STABLE CONDITION AT THIS TIME, TEMP 96.1. WARMING MEASURES IN PLACE. PERRL. HOB ELEVATED, PILLOW SUPPORT PROVIDED. TRACH TO VENT, FIO2=35%, XB=209, RR=14, PEEP=5, PMAX=55. LUNG SOUND RHONCHI ON BILATERAL UPPER LOBES AND LOWER BILATERAL LOBES ARE DIMINISHED. BOWEL SOUND HYPOACTIVE ON AUSCULTATION. NO NGT OR OGT IN PLACE. RANDALL CATHETER IN PLACE, URINE IS CLOUDY/YELLOW. PICC LINE ON ALBINA, INFUSING NS AT 5ML/HR AND TPN AT 50ML/HR. SCDS ON BILATERAL LEGS. SKIN IS WARM/DRY, ABDOMINAL DRESSING IS DRY AND INTACT ERYTHEMA NOTED. Addendum: 01/11/18 at 2040 by Julianne Graham RN JOSE ANTONIO BRYANT INTACT, NOTHING INFUSING AT THIS TIME. SALINE LOCKED
--- NOTE | 2018-01-11 19:55 | NUR ---
URINE SAMPLE COLLECTED, SENT TO LAB.
[2018-01-11] MEDS ORDERED: HUMAN IV SCH (20:00)
[2018-01-11] MEDS ORDERED: INSULIN REGULAR IV SCH (20:00)
[2018-01-11] MEDS ORDERED: MULTIVITAMIN IV SCH (20:00)
[2018-01-11] MEDS ORDERED: DEXTROSE 50% IV SCH (20:00)
[2018-01-11] MEDS ORDERED: [UNRECOGNIZED DRUG - OTHER] IV SCH (20:00)
--- NOTE | 2018-01-11 20:55 | NUR ---
FIO2 SET TO 28%; RR AT 14 AND SATING AT 100% PER RT. SUCTIONING PROVIDED AT BEDSIDE.
[2018-01-11] MEDS: TAMSULOSIN 0.4 MG CAP GT SCH (21:00)
--- NOTE | 2018-01-11 21:04 | NUR ---
CALLED DR. HAWTHORNE INFORMED THAT PO/GT MEDS WOULD BE HELD, PT IS ON TPN AND NO NGT/OGT IN PLACE.
--- NOTE | 2018-01-11 21:23 | NUR ---
DR. HAWTHORNE AT BEDSIDE TO SEE PATIENT, UPDATED ON PT CONDITIONS.
--- NOTE | 2018-01-11 22:05 | NUR ---
PT REPOSITIONED W/ PILLOW SUPPORT, NO BM, ABDOMINAL WOUND DRESSING INTACT. VAP ORAL CARE PROVIDED. FRESH GOWN AND PAD PROVIDED. NS INFUSING AT 5ML/HR AND TPN INFUSING AT 50ML/HR TO ALBINA PICC LINE.
[2018-01-12] VITALS (13 sets, daily range): BP systolic 117–137; BP diastolic 70–85
[2018-01-12] MEDS: BLOOD GLUCOSE MONITORING 1 DEV DEV MC SCH ×3 (00:41→12:51)
--- NOTE | 2018-01-12 00:48 | NUR ---
PT SLEEPING, TEMP 97.0, BEARHUGGER REDUCED SETTING FROM 38 DEG CELCIUS TO 32 DEG. CELCIUS.
[2018-01-12] MEDS: NITROGLYCERIN 2% 1 GM PKT TP SCH ×3 (00:56→12:00)
--- NOTE | 2018-01-12 03:57 | NUR ---
URINE OUTPUT OF 875ML, PT IS SLEEPING QUIETLY APPEARS WITHOUT DISTRESS. TEMP AT 98.3, BEARHUGGER TURNED OFF, WILL CONTINUE TO MONITOR TEMPERATURE.
--- NOTE | 2018-01-12 04:45 | NUR ---
ABG DRAWN TWICE AND RESULTS WERE VENOUS, ASKED SHANDRA AND UNABLE TO OBTAIN ABG, NURSE LIZA BONNER AND NURSE SJ RN WERE NOTED
--- NOTE | 2018-01-12 05:15 | NUR ---
RT AT BEDSIDE TO DRAW ABG; LAB AT BEDSIDE FOR BLOOD DRAW.
[2018-01-12 06:04] LABS: BASOPHILS % (AUTO) 0.2 % (0.0-2.0); EOSINOPHILS # (AUTO) 0.1 K/uL (0-0.4); EOSINOPHILS % (AUTO) 0.9 % (0.0-4.0); HEMATOCRIT 30.8 % (36-52); HEMOGLOBIN 9.8 g/dL (12.0-18.0); LYMPHOCYTES # (AUTO) 0.9 K/uL (2.0-11.5); LYMPHOCYTES % (AUTO) 11.2 % (20.5-51.1); MEAN CORPUSCULAR HEMOGLOBIN 28 pg (27-31); MEAN CORPUSCULAR HGB CONC 32 g/dL (33-37); MEAN CORPUSCULAR VOLUME 86.2 fL (80-94); MONOCYTES # (AUTO) 0.8 K/uL (0.8-1.0); MONOCYTES % (AUTO) 10.7 % (1.7-9.3); PLATELET COUNT (AUTO) 63 K/uL (140-450); RED BLOOD CELL COUNT(AUTO) 3.58 MIL/uL (4.20-6.10); RED CELL DISTRIBUTION WIDTH 20.8 % (11.6-13.7); WHITE BLOOD COUNT (AUTO) 7.8 K/uL (4.8-10.8)
[2018-01-12 06:20] LABS: ANION GAP 13.9 (8-16); CARBON DIOXIDE 26.3 mmol/L (21-32); CHLORIDE 109 mmol/L (98-107); CREATININE 1.6 mg/dL (0.7-1.3); GLUCOSE 119 mg/dL (74-106); POTASSIUM 4.2 mmol/L (3.5-5.1); SODIUM SERUM 145 mmol/L (136-145); UREA NITROGEN, BLOOD 31 mg/dL (7-18)
[2018-01-12 06:24] LABS: MAGNESIUM 2.2 mg/dL (1.8-2.4); PHOSPHORUS 2.7 mg/dL (2.5-4.9)
[2018-01-12] MEDS: ALBUTEROL SULFATE/IPRATROPIU 3 ML SOL IH SCH (07:57)
--- NOTE | 2018-01-12 07:58 | NUR ---
RECEIVED ON A [employer] CARESCAPE VENTILATOR PLUGGED INTO RED OUTLET TOLERATING WELL TO A PORTEX DFEN #7 AIRWAY SECURED WITH A TRACH TIE CUFF PRESSURE CHECKED NOTED AMBU BAG AT HOB LOC ASLEEP EASILY AWAKENS BREATH SOUNS COARSE RHOCNHI BILATERAL WITH GOOD CHEST RISE DEEP TRACHEAL SUCTION FOR MODERATE THIN YELLOW SECRETIONS AIRWAY PATENT
[2018-01-12] MEDS: CALCIUM ACETATE 667 MG TAB PO SCH (08:00)
[2018-01-12] MEDS: FERROUS SULFATE 300 MG/5 ML UDC GT SCH (09:00)
[2018-01-12] MEDS: CARVEDILOL 3.125 MG TAB GT SCH (09:00)
[2018-01-12] MEDS: LACTOBACILLUS RHAMNOSUS GG 1 EACH CAP GT SCH (09:00)
[2018-01-12] MEDS ORDERED: FUROSEMIDE 20 MG/2 ML VIAL IVP SCH (09:00)
[2018-01-12] MEDS: PANTOPRAZOLE 40 MG INJ VIAL IVP SCH (09:11)
[2018-01-12] MEDS: levETIRAcetam 500 MG in NACL 0.9% 100 ML IV SCH (09:12)
[2018-01-12] MEDS ORDERED: MEROPENEM 500 MG in NACL 0.9% 50 ML IV SCH ×2 (09:13→21:00)
[2018-01-12] MEDS: ALBUTEROL SULFATE/IPRATROPIU 3 ML SOL IH PRN (09:59)
--- NOTE | 2018-01-12 10:04 | NUR ---
RESTING WELL GOOD CHEST RISE BREATH SOUNDS COARSE I/E WHEEZE BILATERAL HHN PRN THERAPY GIVEN AT THIS TIME
--- NOTE | 2018-01-12 10:23 | NUR ---
DR JORDAN JAMISON REVIEWED ABG SAMPLE REPORT NEW ORDER: DECREASE RATE TO 12 min
--- NOTE | 2018-01-12 10:25 | NUR ---
NO EVIDENCE OF PULMONARY DISTRESS NOTED VENTILATOR RATE CHANGE TO 12 MIN NOTED AT 1023 BREATH SOUNDS CLEAR BILATERAL WITH GOOD CHEST RISE AIRWAY PATENT
[2018-01-12] MEDS ORDERED: HUMAN IV SCH ×5 (11:14)
[2018-01-12] MEDS ORDERED: INSULIN REGULAR IV SCH ×5 (11:14)
[2018-01-12] MEDS ORDERED: [UNRECOGNIZED DRUG - OTHER] IV SCH ×5 (11:14)
[2018-01-12] MEDS ORDERED: DEXTROSE 50% IV SCH ×5 (11:14)
[2018-01-12] MEDS ORDERED: MULTIVITAMIN IV SCH ×5 (11:14)
--- NOTE | 2018-01-12 11:28 | NUR ---
RECEIVED A CALL FROM TRACE MTZ FROM [place]. THE PATIENT CAN GO TO [facility] IN [place]. [address]ESS IS [address] . HE WILL GO TO ROOM [address] . CALL REPORT TO THE NURSING CONVEYOR OPERATOR AT [phone]. [address] JAMISON AND INFORMED HIM. THE ACCEPTING PHYSICIAN IS DR. ELVIN GALLARDO. I CALLED [facility] AND SPOKE WITH CARMELO AND GAVE HER THE INFORMATION. PHONE IS [phone]. THE RESERVATION NUMBER IS [id number]. SHE WILL HAVE SOMEONE CALL ME BACK TO THE TIME OF PICKUP. I CALLED CARMELO RN IN ICU AND INFORMED HER.
[2018-01-12] MEDS ORDERED: CARV3.122 GT (11:40)
[2018-01-12] MEDS ORDERED: Tpn Per Pharmacy MC (11:40)
[2018-01-12] MEDS ORDERED: Vancomycin Per Pharmacy MC (11:40)
[2018-01-12] MEDS ORDERED: ATOR20TA40 GT (11:40)
[2018-01-12] MEDS ORDERED: ALBU3SOL83 IH (11:40)
[2018-01-12] MEDS ORDERED: HUMSLIDE SUBQ (11:40)
[2018-01-12] MEDS ORDERED: LAS20I IVP (11:40)
[2018-01-12] MEDS ORDERED: MERO500P7 IV (11:42)
[2018-01-12] MEDS ORDERED: KEP500 IV (11:46)
[2018-01-12] MEDS ORDERED: PROPOFOL 1000 MG/100 ML PREMIX 100 ML IV PRN (11:50)
--- NOTE | 2018-01-12 11:53 | NUR ---
I RECEIVED A CALL FROM ELIE FROM [facility] [place]. SHE SAID THAT THE PATIENT WILL BE PICKED UP BY AMBULANCE CALLED [facility] AT 3:30P.M. IF ANY PROBLEMS, CALL [facility] [place] AT [phone] AND GIVE THEM THE RESERVATION NUMBER,[id number]. I CALLED ICU AND INFORMED JUAN DE JESUS.
--- NOTE | 2018-01-12 12:54 | NUR ---
FAXED DISCHARGE SUMMARY TO [facility] [phone] [phone]
--- NOTE | 2018-01-12 13:15 | NUR ---
GAVE REPORT TO NURSE LINDA AT [facility].
--- NOTE | 2018-01-12 13:30 | NUR ---
RECEIVED A CALL FROM ELIE FROM [facility]. SHE SAID THE AMULANCE TRANSPORT WILL BE CRITICAL TRANSPORT BY [facility] AND THAT THEY WILL EPOXY FABRICATION SUPERVISOR THE PATIENT AT 1:45P.M. I INFORMED ICU.
--- NOTE | 2018-01-12 14:30 | NUR ---
PATIENT TRANSFERRED OUT TO [facility]. REPORT GIVEN TO [facility] CCT NURSE. VSS AT TIME OF TRANSFER.
== END 2018-01-12 14:30 | DRG 229 ==
LOC: MED 16:32 → MTU 18:27 → MIC 01-05 09:50 → MTU 01-10 18:43 → MIC 01-11 16:30
PROVIDERS: ADMIT General Practice; ATTEND General Practice
PROC: 0JB80ZZ Excision of Abdomen Subcutaneous Tissue and Fascia, Open Approach (ICD-10-PCS; 2018-01-01)
PROC: 0W9F0ZZ Drainage of Abdominal Wall, Open Approach (ICD-10-PCS; principal; 2018-01-01 16:00)
PROC: 02HV33Z Insertion of Infusion Device into Superior Vena Cava, Percutaneous Approach (ICD-10-PCS; 2018-01-07)
PROC: B548ZZA Ultrasonography of Superior Vena Cava, Guidance (ICD-10-PCS; 2018-01-07)
PROC: 02HV33Z Insertion of Infusion Device into Superior Vena Cava, Percutaneous Approach (ICD-10-PCS; 2018-01-10)
PROC: 30233N1 Transfusion of Nonautologous Red Blood Cells into Peripheral Vein, Percutaneous Approach (ICD-10-PCS; 2018-01-10)
PROC: 5A1935Z Respiratory Ventilation, Less than 24 Consecutive Hours (ICD-10-PCS; 2018-01-11)
DX: K94.22 Gastrostomy infection (principal); I21.A1 Myocardial infarction type 2; J69.0 Pneumonitis due to inhalation of food and vomit; K72.00 Acute and subacute hepatic failure without coma; E43 Unspecified severe protein-calorie malnutrition; A41.9 Sepsis, unspecified organism; N17.0 Acute kidney failure with tubular necrosis; J96.11 Chronic respiratory failure with hypoxia; Z99.11 Dependence on respirator [ventilator] status; I50.43 Acute on chronic combined systolic (congestive) and diastolic (congestive) heart failure; E11.22 Type 2 diabetes mellitus with diabetic chronic kidney disease; E11.65 Type 2 diabetes mellitus with hyperglycemia; E87.5 Hyperkalemia; L03.311 Cellulitis of abdominal wall; D64.9 Anemia, unspecified; E78.5 Hyperlipidemia, unspecified; G40.909 Epilepsy, unspecified, not intractable, without status epilepticus; I13.0 Hypertensive heart and chronic kidney disease with heart failure and stage 1 through stage 4 chronic kidney disease, or unspecified chronic kidney disease; I25.10 Atherosclerotic heart disease of native coronary artery without angina pectoris; I25.2 Old myocardial infarction; I25.5 Ischemic cardiomyopathy; I27.20 Pulmonary hypertension, unspecified; I37.1 Nonrheumatic pulmonary valve insufficiency; J44.0 Chronic obstructive pulmonary disease with (acute) lower respiratory infection; L02.211 Cutaneous abscess of abdominal wall; N18.9 Chronic kidney disease, unspecified; Z87.891 Personal history of nicotine dependence; Z95.1 Presence of aortocoronary bypass graft; Z86.73 Personal history of transient ischemic attack (TIA), and cerebral infarction without residual deficits; R13.10 Dysphagia, unspecified; R53.2 Functional quadriplegia; I34.0 Nonrheumatic mitral (valve) insufficiency; E87.0 Hyperosmolality and hypernatremia; N28.1 Cyst of kidney, acquired; E83.39 Other disorders of phosphorus metabolism; D69.6 Thrombocytopenia, unspecified; E87.6 Hypokalemia; Z68.24 Body mass index [BMI] 24.0-24.9, adult; Z93.0 Tracheostomy status
CPT/HCPCS: 36415; 36600; 51702; 70450; 71045; 74018; 76705; 76770; 80048; 80053; 80076; 80202; 81001; 81003; 82140; 82150; 82607; 82728; 82746; 82803; 82948; 83036; 83540; 83605; 83690; 83735; 83880; 84100; 84134; 84300; 84436; 84439; 84443; 84479; 84484; 85025; 85045; 85379; 85384; 85610; 85651; 85730; 86704; 86706; 86708; 86709; 86803; 86886; 86900; 86901; 86920; 87040; 87070; 87075; 87081; 87086; 87186; 87205; 87340; 89220; 93005; 93925; 93970; 94002; 94003; 94640; 96365; 99285; A6248; A9153; C1751; C9113; J1100; J1200; J1642; J1644; J1650; J1815; J1940; J1953; J2060; J2185; J2250; J2270; J2543; J3010; J3370; J3480; J3490; J7030; J7042; J7060; J7620; P9016; P9046; Q0092; Q0163

== ENCOUNTER 2018-04-25 05:05 | Inpatient (IN) | payer MEDICAID, MEDICARE ==
[2018-04-25] VITALS (18 sets, daily range): BP systolic 83–128; BP diastolic 53–78
[~2018-04-25] VITALS: Ht 162.6 cm; Wt 73.0 kg
[~2018-04-25 05:05] MED LIST: ACET-7756 GT; ALBU3SOL83 IH; ALEN70TA1 GT; ATOR20TA40 GT; ATRN INH; CARV3.122 GT; DOCU-299 GT; FERR75LI22 GT; HUMSLIDE SUBQ; HYDR-5122 GT; KEP500 IV; LACT1CAP8 GT; LAS20I IVP; MERO500P7 IV; PANT40EC GT; PRON INH; TAMS0.4C96 GT; Tpn Per Pharmacy MC; Vancomycin Per Pharmacy MC
[2018-04-25] MEDS ORDERED: NACL 0.9% 1,000 ML IV ONE (05:15)
[2018-04-25] MEDS ORDERED: ACETAMINOPHEN 650 MG SUPP RC ONE (05:15)
[2018-04-25] MEDS ORDERED: PIPERACILLIN/TAZOBACTAM 4.5 GM in DEXTROSE 5% 100 ML IV ONE (05:15)
[2018-04-25] MEDS ORDERED: VANCOMYCIN 1,000 MG in DEXTROSE 5% 250 ML IV ONE (05:15)
[2018-04-25] MEDS ORDERED: PIPERACILLIN/TAZOBACTAM 3.375 GM in DEXTROSE 5% 50 ML IV ONE (05:20)
[2018-04-25] MEDS ORDERED: VANCOMYCIN 1,000 MG VIAL ONE (05:26)
[2018-04-25] MEDS ORDERED: KEP500L GT (05:54)
[2018-04-25] MEDS ORDERED: PRO5 GT (05:54)
[2018-04-25] MEDS ORDERED: LANS15EC28 GT (05:54)
[2018-04-25] MEDS ORDERED: ATOR40TA GT (05:54)
[2018-04-25] MEDS ORDERED: INSU100S22 SUBQ (05:54)
[2018-04-25] MEDS ORDERED: FURO-572 GT (05:54)
[2018-04-25] MEDS ORDERED: HEPA500056 SQ (05:54)
[2018-04-25] MEDS ORDERED: ASPI-1677 GT (05:54)
[2018-04-25 06:00] LABS: BILIRUBIN,URINE NEGATIVE (NEGATIVE); BLOOD, URINE 3+ (NEGATIVE); COLOR,URINE YELLOW (YELLOW); LEUKOCYTE ESTERASE ,URINE 3+ (NEGATIVE); NITRITE, URINE NEGATIVE (NEGATIVE); PH,URINE 8.5 (5.0-9.0); UGLUCOSE NEGATIVE (NEGATIVE)
[2018-04-25 06:01] LABS: APPEARANCE,URINE CLOUDY (CLEAR)
[2018-04-25 06:03] LABS: BASOPHILS # (AUTO) 0.1 K/uL (0.00-0.22); BASOPHILS % (AUTO) 0.3 % (0.0-2.0); HEMATOCRIT 32.8 % (36-52); LYMPHOCYTES # (AUTO) 0.1 K/uL (2.0-11.5); LYMPHOCYTES % (AUTO) 0.7 % (20.5-51.1); MEAN CORPUSCULAR HEMOGLOBIN 29 pg (27-31); MEAN CORPUSCULAR HGB CONC 30 g/dL (33-37); MEAN CORPUSCULAR VOLUME 95.9 fL (80-94); MONOCYTES # (AUTO) 0.2 K/uL (0.8-1.0); MONOCYTES % (AUTO) 1.1 % (1.7-9.3); NEUTROPHILS # (AUTO) 17.4 K/uL (1.8-7.7); NEUTROPHILS % (AUTO) 97.9 % (42.2-75.2); PLATELET COUNT (AUTO) 180 K/uL (140-450); RED BLOOD CELL COUNT(AUTO) 3.42 MIL/uL (4.20-6.10); RED CELL DISTRIBUTION WIDTH 19.9 % (11.6-13.7); WHITE BLOOD COUNT (AUTO) 17.7 K/uL (4.8-10.8)
[2018-04-25 06:21] LABS: ALBUMIN 2.1 g/dL (3.4-5.0); ANION GAP 16.7 (8-16); ASPARTATE AMINOTRANSFERASE 29 U/L (15-37); CARBON DIOXIDE 29.4 mmol/L (21-32); CHLORIDE 97 mmol/L (98-107); CREATININE 2.1 mg/dL (0.7-1.3); GLUCOSE 171 mg/dL (74-106); POTASSIUM 5.1 mmol/L (3.5-5.1); SODIUM SERUM 138 mmol/L (136-145); TOTAL BILIRUBIN 0.6 mg/dL (0.0-1.0)
[2018-04-25 06:25] LABS: UREA NITROGEN, BLOOD 92 mg/dL (7-18)
[2018-04-25 06:27] LABS: PROTHROMBIN TIME 11.5 secs (10.8-13.4)
[2018-04-25 06:34] LABS: RBC,URINE 11-20 (MOD) /HPF (0-5)
[2018-04-25 06:37] LABS: WBC,URINE 80-100 /HPF (0-5)
[2018-04-25] MEDS ORDERED: ACETAMINOPHEN 325 MG TAB PO PRN (06:40)
[2018-04-25] MEDS ORDERED: ONDANSETRON 4 MG/2 ML VIAL IM/IVP PRN (06:40)
[2018-04-25] MEDS ORDERED: HYDROcodone/APAP 5/325 MG 1 TAB TAB PO PRN (06:40)
[2018-04-25] MEDS ORDERED: LORazepam 2 MG/ML VIAL IM/IVP PRN (06:40)
[2018-04-25] MEDS ORDERED: DOCUSATE SODIUM 100 MG GELCAP PO PRN (06:40)
[2018-04-25] MEDS ORDERED: ALBUTEROL SULFATE/IPRATROPIU 3 ML SOL IH PRN (07:10)
[2018-04-25] MEDS: DEXT 5% / NACL 0.45% 1,000 ML IV SCH ×3 (08:00→21:24)
[2018-04-25] MEDS ORDERED: PANTOPRAZOLE 40 MG TABEC PO SCH (09:00)
[2018-04-25 09:13] LABS: MAGNESIUM 2.6 mg/dL (1.8-2.4); PHOSPHORUS 5.6 mg/dL (2.5-4.9); THYROID STIMULATING HORMONE 1.2 uIU/mL (0.34-3.74)
[2018-04-25] MEDS ORDERED: ASCO-786 PO (10:08)
[2018-04-25] MEDS ORDERED: DEXTROSE 50% 50 ML SYR IVP PRN (11:25)
[2018-04-25] MEDS: PIPER/TAZO 2.25GM/D5W PREMIX 50 ML IV SCH ×2 (11:33→17:00)
[2018-04-25] MEDS ORDERED: Z-GUARD PASTE TP PRN ×2 (11:35→13:24)
[2018-04-25] MEDS: BLOOD GLUCOSE MONITORING 1 DEV DEV FS SCH ×3 (11:37→20:38)
[2018-04-25] MEDS ORDERED: CALCIUM ACETATE 667 MG TAB GT SCH (11:46)
[2018-04-25] MEDS ORDERED: HYDRAGUARD CREAM TP PRN (13:00)
[2018-04-25] MEDS: ALBUTEROL SULFATE/IPRATROPIU 3 ML SOL IH SCH ×2 (13:22→19:11)
[2018-04-25 20:37] LABS: CARBON DIOXIDE 28.7 mmol/L (21-32); CHLORIDE 98 mmol/L (98-107); GLUCOSE 154 mg/dL (74-106); POTASSIUM 4.7 mmol/L (3.5-5.1); SODIUM SERUM 138 mmol/L (136-145)
[2018-04-25] MEDS: levETIRAcetam 100 MG/ML ORASYR GT SCH (20:37)
[2018-04-25] MEDS: ATORVASTATIN 20 MG TAB GT SCH (20:37)
[2018-04-25 20:39] LABS: UREA NITROGEN, BLOOD 96 mg/dL (7-18)
[2018-04-25] MEDS ORDERED: LORazepam 2 MG/ML VIAL IM/IVP ONE (21:05)
[2018-04-25] MEDS ORDERED: MORPHINE SULFATE 4 MG/ML SYR IVP ONE (21:05)
[2018-04-25] MEDS ORDERED: HYDROmorphone 1 MG/ML AMP IVP ONE (21:10)
[2018-04-25] MEDS ORDERED: HYDROmorphone 1 MG/ML AMP ONE (21:18)
[2018-04-25] MEDS: NACL 0.9% 1,000 ML IV SCH (23:08)
[2018-04-26] VITALS (20 sets, daily range): BP systolic 90–115; BP diastolic 55–75
[2018-04-26] MEDS: PIPER/TAZO 2.25GM/D5W PREMIX 50 ML IV SCH ×5 (00:23→23:47)
[2018-04-26] MEDS: NACL 0.9% 1,000 ML IV SCH ×3 (05:25→19:52)
[2018-04-26] MEDS: ALBUTEROL SULFATE/IPRATROPIU 3 ML SOL IH SCH ×3 (06:35→18:33)
[2018-04-26 06:55] LABS: HEMATOCRIT 26.7 % (36-52); LYMPHOCYTES # (AUTO) 0.2 K/uL (2.0-11.5); MONOCYTES # (AUTO) 0.6 K/uL (0.8-1.0); RED CELL DISTRIBUTION WIDTH 19.7 % (11.6-13.7)
[2018-04-26 07:06] LABS: BASOPHILS % (AUTO) 0.2 % (0.0-2.0); EOSINOPHILS # (AUTO) 0.1 K/uL (0-0.4); EOSINOPHILS % (AUTO) 0.4 % (0.0-4.0); HEMOGLOBIN 8.4 g/dL (12.0-18.0); LYMPHOCYTES % (AUTO) 1.6 % (20.5-51.1); MEAN CORPUSCULAR HEMOGLOBIN 30 pg (27-31); MEAN CORPUSCULAR HGB CONC 32 g/dL (33-37); MEAN CORPUSCULAR VOLUME 94.7 fL (80-94); MONOCYTES % (AUTO) 4.3 % (1.7-9.3); NEUTROPHILS # (AUTO) 13.6 K/uL (1.8-7.7); NEUTROPHILS % (AUTO) 93.5 % (42.2-75.2); PLATELET COUNT (AUTO) 126 K/uL (140-450); RED BLOOD CELL COUNT(AUTO) 2.82 MIL/uL (4.20-6.10); WHITE BLOOD COUNT (AUTO) 14.5 K/uL (4.8-10.8)
[2018-04-26 07:28] LABS: MAGNESIUM 2.4 mg/dL (1.8-2.4); PHOSPHORUS 4.9 mg/dL (2.5-4.9)
[2018-04-26] MEDS: INSULIN LISPRO SLIDING SCALE 100 UNITS/ML VIAL SUBQ PRN (07:30)
[2018-04-26] MEDS: BLOOD GLUCOSE MONITORING 1 DEV DEV FS SCH ×5 (07:30→20:55)
[2018-04-26 07:35] LABS: ANION GAP 15.8 (8-16); CARBON DIOXIDE 27.8 mmol/L (21-32); CHLORIDE 97 mmol/L (98-107); CREATININE 2.3 mg/dL (0.7-1.3); GLUCOSE 202 mg/dL (74-106); POTASSIUM 4.6 mmol/L (3.5-5.1); SODIUM SERUM 136 mmol/L (136-145)
[2018-04-26 07:36] LABS: UREA NITROGEN, BLOOD 93 mg/dL (7-18)
[2018-04-26] MEDS: MIDODRINE 5 MG TAB GT SCH (08:18)
[2018-04-26] MEDS: ASCORBIC ACID 500 MG/5 ML ORASYR GT SCH (08:18)
[2018-04-26] MEDS: levETIRAcetam 100 MG/ML ORASYR GT SCH ×2 (08:19→20:48)
[2018-04-26] MEDS: ASPIRIN 81 MG TAB.CHEW GT SCH (08:19)
[2018-04-26] MEDS: LACTOBACILLUS RHAMNOSUS GG 1 EACH CAP GT SCH (08:19)
[2018-04-26] MEDS: PANTOPRAZOLE 40 MG INJ VIAL IVP SCH (08:25)
[2018-04-26 09:09] LABS: FOLIC ACID > 20.00 ng/mL (>3.0)
[2018-04-26] MEDS: INSULIN LANTUS 100 UNITS/ML 10 ML VIAL SUBQ SCH (09:27)
[2018-04-26] MEDS: ALBUMIN HUMAN 25% 100 ML IV SCH ×2 (14:41→20:49)
[2018-04-26] MEDS ORDERED: FUROSEMIDE 40 MG/4 ML VIAL IVP ONE (18:37)
[2018-04-26] MEDS ORDERED: FUROSEMIDE 40 MG/4 ML VIAL IVP SCH (18:40)
[2018-04-26] MEDS: MUPIROCIN 2% OINT 22 GM TUBE TP SCH (19:40)
[2018-04-26] MEDS: CHLORHEXADINE GLUC 2% CLOTH TP SCH (20:47)
[2018-04-26] MEDS: ATORVASTATIN 20 MG TAB GT SCH (20:48)
[2018-04-27] VITALS (17 sets, daily range): BP systolic 85–125; BP diastolic 58–71
[2018-04-27] MEDS: Z-GUARD PASTE TP SCH ×2 (00:23→12:21)
[2018-04-27] MEDS: HYDRAGUARD CREAM TP SCH ×2 (00:23→12:21)
[2018-04-27 06:14] LABS: BASOPHILS % (AUTO) 0.3 % (0.0-2.0); EOSINOPHILS % (AUTO) 0.3 % (0.0-4.0); HEMATOCRIT 26.1 % (36-52); HEMOGLOBIN 8.1 g/dL (12.0-18.0); LYMPHOCYTES # (AUTO) 0.3 K/uL (2.0-11.5); LYMPHOCYTES % (AUTO) 2.6 % (20.5-51.1); MEAN CORPUSCULAR HEMOGLOBIN 30 pg (27-31); MEAN CORPUSCULAR HGB CONC 31 g/dL (33-37); MEAN CORPUSCULAR VOLUME 94.5 fL (80-94); MONOCYTES # (AUTO) 0.6 K/uL (0.8-1.0); MONOCYTES % (AUTO) 5.1 % (1.7-9.3); NEUTROPHILS % (AUTO) 91.7 % (42.2-75.2); PLATELET COUNT (AUTO) 111 K/uL (140-450); RED BLOOD CELL COUNT(AUTO) 2.76 MIL/uL (4.20-6.10); RED CELL DISTRIBUTION WIDTH 19.5 % (11.6-13.7); WHITE BLOOD COUNT (AUTO) 10.9 K/uL (4.8-10.8)
[2018-04-27] MEDS: PIPER/TAZO 2.25GM/D5W PREMIX 50 ML IV SCH ×4 (06:37→23:41)
[2018-04-27] MEDS: BLOOD GLUCOSE MONITORING 1 DEV DEV FS SCH ×4 (07:02→21:54)
[2018-04-27 07:14] LABS: ANION GAP 17.3 (8-16); CARBON DIOXIDE 26.7 mmol/L (21-32); CHLORIDE 99 mmol/L (98-107); CREATININE 2.5 mg/dL (0.7-1.3); GLUCOSE 68 mg/dL (74-106); SODIUM SERUM 139 mmol/L (136-145)
[2018-04-27] MEDS: ALBUTEROL SULFATE/IPRATROPIU 3 ML SOL IH SCH ×3 (07:14→18:55)
[2018-04-27 07:19] LABS: UREA NITROGEN, BLOOD 94 mg/dL (7-18)
[2018-04-27] MEDS: NACL 0.9% 1,000 ML IV SCH (08:45)
[2018-04-27] MEDS: ASCORBIC ACID 500 MG/5 ML ORASYR GT SCH (08:45)
[2018-04-27] MEDS: MIDODRINE 5 MG TAB GT SCH (08:45)
[2018-04-27] MEDS: levETIRAcetam 100 MG/ML ORASYR GT SCH ×2 (08:45→21:40)
[2018-04-27] MEDS: PANTOPRAZOLE 40 MG INJ VIAL IVP SCH (08:46)
[2018-04-27] MEDS: ASPIRIN 81 MG TAB.CHEW GT SCH (08:46)
[2018-04-27] MEDS: LACTOBACILLUS RHAMNOSUS GG 1 EACH CAP GT SCH (08:46)
[2018-04-27] MEDS: INSULIN LANTUS 100 UNITS/ML 10 ML VIAL SUBQ SCH (08:48)
[2018-04-27] MEDS ORDERED: CALCIUM CARB/VIT-D 500 MG/200 IU 1 TAB GT SCH ×2 (09:45→10:30)
[2018-04-27] MEDS ORDERED: CALCIUM CARBONATE 500 MG TAB.CHEW GT SCH ×2 (10:00→11:00)
[2018-04-27] MEDS ORDERED: VITAMIN D 400 IU TAB GT SCH ×2 (10:00→11:00)
[2018-04-27] MEDS ORDERED: VANCOMYCIN PER PHARMACY MC PRN (14:15)
[2018-04-27] MEDS: VANCOMYCIN 500 MG in DEXTROSE 5% 100 ML IV SCH (15:09)
[2018-04-27] MEDS: INSULIN LISPRO SLIDING SCALE 100 UNITS/ML VIAL SUBQ PRN ×2 (17:04→22:19)
[2018-04-27] MEDS: MUPIROCIN 2% OINT 22 GM TUBE TP SCH (19:40)
[2018-04-27] MEDS: CHLORHEXADINE GLUC 2% CLOTH TP SCH (19:40)
[2018-04-27] MEDS: ATORVASTATIN 20 MG TAB GT SCH (21:41)
[2018-04-28] VITALS (17 sets, daily range): BP systolic 98–130; BP diastolic 27–88
[2018-04-28] MEDS: HYDRAGUARD CREAM TP SCH ×2 (00:11→13:05)
[2018-04-28] MEDS: Z-GUARD PASTE TP SCH ×2 (00:11→13:05)
[2018-04-28] MEDS: NACL 0.9% 1,000 ML IV SCH (00:24)
[2018-04-28] MEDS: PIPER/TAZO 2.25GM/D5W PREMIX 50 ML IV SCH ×3 (05:17→17:45)
[2018-04-28 06:06] LABS: BASOPHILS % (AUTO) 0.1 % (0.0-2.0); EOSINOPHILS # (AUTO) 0.2 K/uL (0-0.4); EOSINOPHILS % (AUTO) 2.5 % (0.0-4.0); HEMATOCRIT 25.1 % (36-52); LYMPHOCYTES # (AUTO) 0.2 K/uL (2.0-11.5); LYMPHOCYTES % (AUTO) 3.1 % (20.5-51.1); MEAN CORPUSCULAR HEMOGLOBIN 30 pg (27-31); MEAN CORPUSCULAR HGB CONC 32 g/dL (33-37); MEAN CORPUSCULAR VOLUME 93.3 fL (80-94); MONOCYTES # (AUTO) 0.6 K/uL (0.8-1.0); MONOCYTES % (AUTO) 7.8 % (1.7-9.3); NEUTROPHILS # (AUTO) 6.9 K/uL (1.8-7.7); NEUTROPHILS % (AUTO) 86.5 % (42.2-75.2); PLATELET COUNT (AUTO) 97 K/uL (140-450); RED BLOOD CELL COUNT(AUTO) 2.69 MIL/uL (4.20-6.10); WHITE BLOOD COUNT (AUTO) 7.9 K/uL (4.8-10.8)
[2018-04-28 06:47] LABS: MAGNESIUM 2.3 mg/dL (1.8-2.4); PHOSPHORUS 4.9 mg/dL (2.5-4.9)
[2018-04-28] MEDS: BLOOD GLUCOSE MONITORING 1 DEV DEV FS SCH ×4 (07:01→21:50)
[2018-04-28] MEDS: ALBUTEROL SULFATE/IPRATROPIU 3 ML SOL IH SCH ×5 (07:01→19:10)
[2018-04-28 07:11] LABS: CARBON DIOXIDE 24.7 mmol/L (21-32); CREATININE 2.7 mg/dL (0.7-1.3); GLUCOSE 162 mg/dL (74-106)
[2018-04-28 08:03] LABS: ANION GAP 18.8 (8-16); CHLORIDE 99 mmol/L (98-107); POTASSIUM 3.5 mmol/L (3.5-5.1); SODIUM SERUM 139 mmol/L (136-145); UREA NITROGEN, BLOOD 100 mg/dL (7-18)
[2018-04-28] MEDS: VITAMIN D 400 IU TAB GT SCH (08:14)
[2018-04-28] MEDS: MIDODRINE 5 MG TAB GT SCH (08:14)
[2018-04-28] MEDS: PANTOPRAZOLE 40 MG INJ VIAL IVP SCH (08:15)
[2018-04-28] MEDS: LACTOBACILLUS RHAMNOSUS GG 1 EACH CAP GT SCH (08:15)
[2018-04-28] MEDS: levETIRAcetam 100 MG/ML ORASYR GT SCH ×2 (08:15→20:35)
[2018-04-28] MEDS: ASCORBIC ACID 500 MG/5 ML ORASYR GT SCH (08:15)
[2018-04-28] MEDS: CALCIUM CARBONATE 500 MG TAB.CHEW GT SCH (08:15)
[2018-04-28] MEDS: ASPIRIN 81 MG TAB.CHEW GT SCH (08:15)
[2018-04-28] MEDS: INSULIN LANTUS 100 UNITS/ML 10 ML VIAL SUBQ SCH (08:25)
[2018-04-28] MEDS ORDERED: FUROSEMIDE 40 MG/4 ML VIAL IVP SCH (09:00)
[2018-04-28] MEDS ORDERED: VITAMIN D 400 IU TAB GT SCH (09:00)
[2018-04-28] MEDS ORDERED: CALCIUM CARBONATE 500 MG TAB.CHEW GT SCH (09:00)
[2018-04-28] MEDS: INSULIN LISPRO SLIDING SCALE 100 UNITS/ML VIAL SUBQ PRN ×2 (12:06→16:02)
[2018-04-28] MEDS: VANCOMYCIN 500 MG in DEXTROSE 5% 100 ML IV SCH (15:05)
[2018-04-28] MEDS: CHLORHEXADINE GLUC 2% CLOTH TP SCH (20:07)
[2018-04-28] MEDS: MUPIROCIN 2% OINT 22 GM TUBE TP SCH (20:08)
[2018-04-28] MEDS: ATORVASTATIN 20 MG TAB GT SCH (20:35)
[2018-04-28] MEDS: FUROSEMIDE 40 MG/4 ML VIAL IVP SCH (21:00)
[2018-04-28 22:06] LABS: ANION GAP 20.7 (8-16); CARBON DIOXIDE 24.8 mmol/L (21-32); CHLORIDE 99 mmol/L (98-107); CREATININE 2.9 mg/dL (0.7-1.3); GLUCOSE 105 mg/dL (74-106); POTASSIUM 3.5 mmol/L (3.5-5.1); SODIUM SERUM 141 mmol/L (136-145)
[2018-04-28 22:39] LABS: UREA NITROGEN, BLOOD 101 mg/dL (7-18)
[2018-04-29] VITALS: BP 115/68
[2018-04-29] MEDS: PIPER/TAZO 2.25GM/D5W PREMIX 50 ML IV SCH ×4 (00:12→20:27)
[2018-04-29] MEDS: Z-GUARD PASTE TP SCH ×3 (00:24→23:44)
[2018-04-29] MEDS: HYDRAGUARD CREAM TP SCH ×3 (00:24→23:44)
[2018-04-29 04:00] VITALS: BP 120/62
[2018-04-29] MEDS: FUROSEMIDE 40 MG/4 ML VIAL IVP SCH ×3 (05:24→20:28)
[2018-04-29] MEDS: ALBUTEROL SULFATE/IPRATROPIU 3 ML SOL IH SCH ×2 (07:04→13:55)
[2018-04-29 07:33] LABS: BASOPHILS % (AUTO) 0.2 % (0.0-2.0); EOSINOPHILS # (AUTO) 0.4 K/uL (0-0.4); EOSINOPHILS % (AUTO) 4.4 % (0.0-4.0); HEMATOCRIT 25.8 % (36-52); HEMOGLOBIN 8.4 g/dL (12.0-18.0); LYMPHOCYTES # (AUTO) 0.4 K/uL (2.0-11.5); LYMPHOCYTES % (AUTO) 4.2 % (20.5-51.1); MEAN CORPUSCULAR HEMOGLOBIN 30 pg (27-31); MEAN CORPUSCULAR HGB CONC 32 g/dL (33-37); MEAN CORPUSCULAR VOLUME 92.2 fL (80-94); MONOCYTES # (AUTO) 0.8 K/uL (0.8-1.0); MONOCYTES % (AUTO) 8.8 % (1.7-9.3); NEUTROPHILS # (AUTO) 7.2 K/uL (1.8-7.7); NEUTROPHILS % (AUTO) 82.4 % (42.2-75.2); PLATELET COUNT (AUTO) 94 K/uL (140-450); RED CELL DISTRIBUTION WIDTH 19.1 % (11.6-13.7); WHITE BLOOD COUNT (AUTO) 8.7 K/uL (4.8-10.8)
[2018-04-29 07:37] LABS: ANION GAP 19.8 (8-16); CARBON DIOXIDE 25.3 mmol/L (21-32); CHLORIDE 99 mmol/L (98-107); CREATININE 2.8 mg/dL (0.7-1.3); GLUCOSE 96 mg/dL (74-106); POTASSIUM 3.1 mmol/L (3.5-5.1); SODIUM SERUM 141 mmol/L (136-145)
[2018-04-29] MEDS: BLOOD GLUCOSE MONITORING 1 DEV DEV FS SCH ×4 (07:39→20:28)
[2018-04-29 07:41] LABS: UREA NITROGEN, BLOOD 97 mg/dL (7-18)
[2018-04-29 08:00] VITALS: BP 114/54
[2018-04-29] MEDS: PANTOPRAZOLE 40 MG INJ VIAL IVP SCH (09:49)
[2018-04-29] MEDS: VITAMIN D 400 IU TAB GT SCH (09:49)
[2018-04-29] MEDS: LACTOBACILLUS RHAMNOSUS GG 1 EACH CAP GT SCH (09:49)
[2018-04-29] MEDS: ASPIRIN 81 MG TAB.CHEW GT SCH (09:49)
[2018-04-29] MEDS: MIDODRINE 5 MG TAB GT SCH (09:50)
[2018-04-29] MEDS: CALCIUM CARBONATE 500 MG TAB.CHEW GT SCH (09:50)
[2018-04-29] MEDS: levETIRAcetam 100 MG/ML ORASYR GT SCH ×2 (09:50→20:35)
[2018-04-29] MEDS: ASCORBIC ACID 500 MG/5 ML ORASYR GT SCH (09:51)
[2018-04-29] MEDS: INSULIN LANTUS 100 UNITS/ML 10 ML VIAL SUBQ SCH (09:57)
[2018-04-29] MEDS ORDERED: KCL 20 MEQ/WATER INJ PREMIX 200 ML IV SCH ×2 (10:00→16:00)
[2018-04-29 12:00] VITALS: BP 126/68
[2018-04-29 16:00] VITALS: BP 119/65
[2018-04-29] MEDS: VANCOMYCIN 500 MG in DEXTROSE 5% 100 ML IV SCH (16:45)
[2018-04-29 17:56] LABS: ANION GAP 16.5 (8-16); CHLORIDE 100 mmol/L (98-107); GLUCOSE 140 mg/dL (74-106); POTASSIUM 3.5 mmol/L (3.5-5.1); SODIUM SERUM 140 mmol/L (136-145)
[2018-04-29 17:58] LABS: UREA NITROGEN, BLOOD 102 mg/dL (7-18)
[2018-04-29 17:59] LABS: CREATININE 2.9 mg/dL (0.7-1.3)
[2018-04-29 20:00] VITALS: BP 131/68
[2018-04-29] MEDS: CHLORHEXADINE GLUC 2% CLOTH TP SCH (20:27)
[2018-04-29] MEDS: MUPIROCIN 2% OINT 22 GM TUBE TP SCH (20:27)
[2018-04-29] MEDS: ATORVASTATIN 20 MG TAB GT SCH (20:28)
[2018-04-30] VITALS: BP 126/63
[2018-04-30 04:00] VITALS: BP 129/67
[2018-04-30] MEDS: PIPER/TAZO 2.25GM/D5W PREMIX 50 ML IV SCH ×3 (05:31→21:53)
[2018-04-30] MEDS: BLOOD GLUCOSE MONITORING 1 DEV DEV FS SCH ×4 (05:31→20:25)
[2018-04-30] MEDS: FUROSEMIDE 40 MG/4 ML VIAL IVP SCH ×3 (05:33→21:53)
[2018-04-30] MEDS: INSULIN LISPRO SLIDING SCALE 100 UNITS/ML VIAL SUBQ PRN ×2 (05:35→12:44)
[2018-04-30 06:17] LABS: BASOPHILS % (AUTO) 0.4 % (0.0-2.0); EOSINOPHILS # (AUTO) 0.4 K/uL (0-0.4); EOSINOPHILS % (AUTO) 4.2 % (0.0-4.0); HEMATOCRIT 25.7 % (36-52); HEMOGLOBIN 8.2 g/dL (12.0-18.0); LYMPHOCYTES # (AUTO) 0.5 K/uL (2.0-11.5); LYMPHOCYTES % (AUTO) 5.1 % (20.5-51.1); MEAN CORPUSCULAR HEMOGLOBIN 30 pg (27-31); MEAN CORPUSCULAR HGB CONC 32 g/dL (33-37); MEAN CORPUSCULAR VOLUME 93.1 fL (80-94); MONOCYTES # (AUTO) 0.7 K/uL (0.8-1.0); MONOCYTES % (AUTO) 7.8 % (1.7-9.3); NEUTROPHILS # (AUTO) 7.6 K/uL (1.8-7.7); NEUTROPHILS % (AUTO) 82.5 % (42.2-75.2); PLATELET COUNT (AUTO) 103 K/uL (140-450); RED BLOOD CELL COUNT(AUTO) 2.77 MIL/uL (4.20-6.10); RED CELL DISTRIBUTION WIDTH 19.3 % (11.6-13.7); WHITE BLOOD COUNT (AUTO) 9.2 K/uL (4.8-10.8)
[2018-04-30] MEDS: ALBUTEROL SULFATE/IPRATROPIU 3 ML SOL IH SCH ×3 (06:34→19:22)
[2018-04-30 06:55] LABS: MAGNESIUM 2.3 mg/dL (1.8-2.4); PHOSPHORUS 4.4 mg/dL (2.5-4.9)
[2018-04-30 06:58] LABS: ANION GAP 17.3 (8-16); CARBON DIOXIDE 26.9 mmol/L (21-32); CHLORIDE 101 mmol/L (98-107); GLUCOSE 173 mg/dL (74-106); POTASSIUM 3.2 mmol/L (3.5-5.1); SODIUM SERUM 142 mmol/L (136-145)
[2018-04-30 07:01] LABS: UREA NITROGEN, BLOOD 96 mg/dL (7-18)
[2018-04-30 07:51] VITALS: BP 112/58
[2018-04-30] MEDS: PANTOPRAZOLE 40 MG INJ VIAL IVP SCH (08:41)
[2018-04-30] MEDS: levETIRAcetam 100 MG/ML ORASYR GT SCH ×2 (08:41→20:26)
[2018-04-30] MEDS: MIDODRINE 5 MG TAB GT SCH (08:42)
[2018-04-30] MEDS: LACTOBACILLUS RHAMNOSUS GG 1 EACH CAP GT SCH (08:42)
[2018-04-30] MEDS: ASCORBIC ACID 500 MG/5 ML ORASYR GT SCH (08:42)
[2018-04-30] MEDS: CALCIUM CARBONATE 500 MG TAB.CHEW GT SCH (08:42)
[2018-04-30] MEDS: ASPIRIN 81 MG TAB.CHEW GT SCH (08:42)
[2018-04-30] MEDS: VITAMIN D 400 IU TAB GT SCH (08:43)
[2018-04-30] MEDS: INSULIN LANTUS 100 UNITS/ML 10 ML VIAL SUBQ SCH (08:51)
[2018-04-30] MEDS ORDERED: POTASSIUM CHLORIDE 20% 40 MEQ/15 ML UDC GT SCH (09:25)
[2018-04-30] MEDS ORDERED: POTASSIUM CHLORIDE 10 MEQ TABER PO SCH (10:00)
[2018-04-30] MEDS: ALBUMIN HUMAN 25% 50 ML IV SCH ×2 (11:02→19:32)
[2018-04-30 11:57] VITALS: BP 146/62
[2018-04-30] MEDS: HYDRAGUARD CREAM TP SCH (13:56)
[2018-04-30] MEDS: Z-GUARD PASTE TP SCH (13:56)
[2018-04-30 16:00] VITALS: BP 138/67
[2018-04-30] MEDS: VANCOMYCIN 500 MG in DEXTROSE 5% 100 ML IV SCH (16:03)
[2018-04-30 18:13] LABS: CARBON DIOXIDE 24.6 mmol/L (21-32); CHLORIDE 101 mmol/L (98-107); CREATININE 3.1 mg/dL (0.7-1.3); GLUCOSE 130 mg/dL (74-106); POTASSIUM 4.6 mmol/L (3.5-5.1); SODIUM SERUM 140 mmol/L (136-145)
[2018-04-30 18:15] LABS: UREA NITROGEN, BLOOD 97 mg/dL (7-18)
[2018-04-30] MEDS: MUPIROCIN 2% OINT 22 GM TUBE TP SCH (19:32)
[2018-04-30] MEDS: CHLORHEXADINE GLUC 2% CLOTH TP SCH (19:33)
[2018-04-30 20:00] VITALS: BP 136/67
[2018-04-30] MEDS: ATORVASTATIN 20 MG TAB GT SCH (20:26)
[2018-05-01] VITALS: BP 129/40
[2018-05-01] MEDS: Z-GUARD PASTE TP SCH ×2 (01:32→09:41)
[2018-05-01] MEDS: HYDRAGUARD CREAM TP SCH ×2 (01:32→13:03)
[2018-05-01] MEDS: ALBUMIN HUMAN 25% 50 ML IV SCH (03:28)
[2018-05-01 04:00] VITALS: BP 98/60
[2018-05-01] MEDS: PIPER/TAZO 2.25GM/D5W PREMIX 50 ML IV SCH ×3 (04:46→21:27)
[2018-05-01] MEDS: FUROSEMIDE 40 MG/4 ML VIAL IVP SCH ×3 (04:46→21:27)
[2018-05-01] MEDS: ALBUTEROL SULFATE/IPRATROPIU 3 ML SOL IH SCH ×3 (06:39→18:59)
[2018-05-01] MEDS: BLOOD GLUCOSE MONITORING 1 DEV DEV FS SCH ×4 (06:43→21:24)
[2018-05-01] MEDS: INSULIN LISPRO SLIDING SCALE 100 UNITS/ML VIAL SUBQ PRN ×3 (06:44→17:06)
[2018-05-01 07:37] LABS: ANION GAP 16.7 (8-16); CARBON DIOXIDE 27.7 mmol/L (21-32); CHLORIDE 101 mmol/L (98-107); GLUCOSE 177 mg/dL (74-106); POTASSIUM 3.4 mmol/L (3.5-5.1); SODIUM SERUM 142 mmol/L (136-145)
[2018-05-01 07:45] LABS: UREA NITROGEN, BLOOD 94 mg/dL (7-18)
[2018-05-01 08:00] VITALS: BP 146/64
[2018-05-01] MEDS: PANTOPRAZOLE 40 MG INJ VIAL IVP SCH (08:38)
[2018-05-01] MEDS: ASPIRIN 81 MG TAB.CHEW GT SCH (08:39)
[2018-05-01] MEDS: CALCIUM CARBONATE 500 MG TAB.CHEW GT SCH (08:39)
[2018-05-01] MEDS: LACTOBACILLUS RHAMNOSUS GG 1 EACH CAP GT SCH (08:39)
[2018-05-01] MEDS: VITAMIN D 400 IU TAB GT SCH (08:40)
[2018-05-01] MEDS: ASCORBIC ACID 500 MG/5 ML ORASYR GT SCH (08:40)
[2018-05-01] MEDS: levETIRAcetam 100 MG/ML ORASYR GT SCH ×2 (08:40→21:26)
[2018-05-01] MEDS: MIDODRINE 5 MG TAB GT SCH (08:44)
[2018-05-01] MEDS: INSULIN LANTUS 100 UNITS/ML 10 ML VIAL SUBQ SCH (09:27)
[2018-05-01] MEDS ORDERED: POTASSIUM CHLORIDE 10 MEQ TABER PO SCH (10:00)
[2018-05-01] MEDS ORDERED: POTASSIUM CHLORIDE 20% 40 MEQ/15 ML UDC GT SCH (10:00)
[2018-05-01 11:49] VITALS: BP 143/73
[2018-05-01] MEDS: VANCOMYCIN 500 MG in DEXTROSE 5% 100 ML IV SCH (15:36)
[2018-05-01 16:00] VITALS: BP 107/59
[2018-05-01 17:46] LABS: CARBON DIOXIDE 27.8 mmol/L (21-32); CHLORIDE 101 mmol/L (98-107); GLUCOSE 173 mg/dL (74-106); POTASSIUM 3.8 mmol/L (3.5-5.1); SODIUM SERUM 142 mmol/L (136-145)
[2018-05-01 17:49] LABS: UREA NITROGEN, BLOOD 95 mg/dL (7-18)
[2018-05-01 20:00] VITALS: BP 143/74
[2018-05-01] MEDS: ATORVASTATIN 20 MG TAB GT SCH (21:26)
[2018-05-02] VITALS: BP 121/63
[2018-05-02] MEDS: HYDRAGUARD CREAM TP SCH ×2 (01:55→12:33)
[2018-05-02] MEDS: Z-GUARD PASTE TP SCH ×2 (01:55→12:34)
[2018-05-02 04:00] VITALS: BP 114/55
[2018-05-02] MEDS: PIPER/TAZO 2.25GM/D5W PREMIX 50 ML IV SCH ×2 (05:33→12:33)
[2018-05-02] MEDS: FUROSEMIDE 40 MG/4 ML VIAL IVP SCH ×3 (05:33→20:42)
[2018-05-02] MEDS: BLOOD GLUCOSE MONITORING 1 DEV DEV FS SCH ×4 (05:52→21:00)
[2018-05-02] MEDS: ALBUTEROL SULFATE/IPRATROPIU 3 ML SOL IH SCH ×3 (06:40→19:18)
[2018-05-02 07:22] LABS: BASOPHILS % (AUTO) 0.3 % (0.0-2.0); EOSINOPHILS # (AUTO) 0.5 K/uL (0-0.4); HEMATOCRIT 24.2 % (36-52); HEMOGLOBIN 7.8 g/dL (12.0-18.0); LYMPHOCYTES # (AUTO) 0.6 K/uL (2.0-11.5); LYMPHOCYTES % (AUTO) 7.2 % (20.5-51.1); MEAN CORPUSCULAR HEMOGLOBIN 30 pg (27-31); MEAN CORPUSCULAR HGB CONC 32 g/dL (33-37); MEAN CORPUSCULAR VOLUME 92.6 fL (80-94); MONOCYTES # (AUTO) 0.6 K/uL (0.8-1.0); NEUTROPHILS # (AUTO) 6.3 K/uL (1.8-7.7); NEUTROPHILS % (AUTO) 78.5 % (42.2-75.2); PLATELET COUNT (AUTO) 102 K/uL (140-450); RED BLOOD CELL COUNT(AUTO) 2.62 MIL/uL (4.20-6.10); RED CELL DISTRIBUTION WIDTH 19.6 % (11.6-13.7)
[2018-05-02 07:34] LABS: ALBUMIN 2.2 g/dL (3.4-5.0); ASPARTATE AMINOTRANSFERASE 18 U/L (15-37); CARBON DIOXIDE 28.2 mmol/L (21-32); CHLORIDE 103 mmol/L (98-107); GLUCOSE 171 mg/dL (74-106); POTASSIUM 3.2 mmol/L (3.5-5.1); SODIUM SERUM 144 mmol/L (136-145); TOTAL BILIRUBIN 0.6 mg/dL (0.0-1.0)
[2018-05-02 07:53] LABS: UREA NITROGEN, BLOOD 94 mg/dL (7-18)
[2018-05-02 08:00] VITALS: BP 133/70
[2018-05-02] MEDS ORDERED: HYDROcodone/APAP 5/325 MG 1 TAB TAB PO PRN (08:55)
[2018-05-02] MEDS ORDERED: LORazepam 2 MG/ML VIAL IM/IVP PRN (08:55)
[2018-05-02] MEDS ORDERED: KCL 20 MEQ/WATER INJ PREMIX 200 ML IV SCH (09:11)
[2018-05-02] MEDS: PANTOPRAZOLE 40 MG INJ VIAL IVP SCH (09:12)
[2018-05-02] MEDS ORDERED: POTASSIUM CHLORIDE 20% 40 MEQ/15 ML UDC GT SCH (09:12)
[2018-05-02] MEDS: CALCIUM CARBONATE 500 MG TAB.CHEW GT SCH (09:12)
[2018-05-02] MEDS: VITAMIN D 400 IU TAB GT SCH (09:13)
[2018-05-02] MEDS: LACTOBACILLUS RHAMNOSUS GG 1 EACH CAP GT SCH (09:13)
[2018-05-02] MEDS: MIDODRINE 5 MG TAB GT SCH (09:13)
[2018-05-02] MEDS: ASCORBIC ACID 500 MG/5 ML ORASYR GT SCH (09:13)
[2018-05-02] MEDS: ASPIRIN 81 MG TAB.CHEW GT SCH (09:13)
[2018-05-02] MEDS: levETIRAcetam 100 MG/ML ORASYR GT SCH ×2 (09:14→20:41)
[2018-05-02] MEDS: INSULIN LANTUS 100 UNITS/ML 10 ML VIAL SUBQ SCH (09:19)
[2018-05-02 12:00] VITALS: BP 113/60
[2018-05-02] MEDS ORDERED: POTASSIUM CHLORIDE 10 MEQ TABER PO SCH (12:00)
[2018-05-02] MEDS: INSULIN LISPRO SLIDING SCALE 100 UNITS/ML VIAL SUBQ PRN ×2 (12:31→16:07)
[2018-05-02 16:00] VITALS: BP 109/51
[2018-05-02 17:25] LABS: ANION GAP 13.2 (8-16); CARBON DIOXIDE 30.5 mmol/L (21-32); CHLORIDE 103 mmol/L (98-107); CREATININE 3.2 mg/dL (0.7-1.3); GLUCOSE 164 mg/dL (74-106); POTASSIUM 3.7 mmol/L (3.5-5.1); SODIUM SERUM 143 mmol/L (136-145)
[2018-05-02 17:38] LABS: UREA NITROGEN, BLOOD 94 mg/dL (7-18)
[2018-05-02] MEDS: COLISTIMETHATE SODIUM 150 MG VIAL IH SCH (19:18)
[2018-05-02 20:00] VITALS: BP 119/59
[2018-05-02] MEDS: ALBUMIN HUMAN 25% 100 ML IV SCH (20:40)
[2018-05-02] MEDS: MEROPENEM 500 MG in NACL 0.9% 50 ML IV SCH (20:42)
[2018-05-02] MEDS: ATORVASTATIN 20 MG TAB GT SCH (20:42)
[2018-05-03] VITALS (7 sets, daily range): BP systolic 100–124; BP diastolic 44–66
[2018-05-03] MEDS: Z-GUARD PASTE TP SCH ×2 (00:16→13:43)
[2018-05-03] MEDS: HYDRAGUARD CREAM TP SCH ×2 (00:16→13:43)
[2018-05-03] MEDS: FUROSEMIDE 40 MG/4 ML VIAL IVP SCH ×3 (05:00→21:30)
[2018-05-03] MEDS: INSULIN LISPRO SLIDING SCALE 100 UNITS/ML VIAL SUBQ PRN ×3 (05:57→21:41)
[2018-05-03] MEDS: ALBUTEROL SULFATE/IPRATROPIU 3 ML SOL IH SCH ×3 (06:24→19:01)
[2018-05-03] MEDS ORDERED: WATER STERILE 10 ML MC ONE (06:26)
[2018-05-03] MEDS: BLOOD GLUCOSE MONITORING 1 DEV DEV FS SCH ×4 (06:33→21:30)
[2018-05-03] MEDS: COLISTIMETHATE SODIUM 150 MG VIAL IH SCH ×2 (06:34→19:02)
[2018-05-03 07:50] LABS: BASOPHILS % (AUTO) 0.6 % (0.0-2.0); EOSINOPHILS # (AUTO) 0.5 K/uL (0-0.4); EOSINOPHILS % (AUTO) 6.3 % (0.0-4.0); HEMATOCRIT 22.2 % (36-52); LYMPHOCYTES # (AUTO) 0.6 K/uL (2.0-11.5); LYMPHOCYTES % (AUTO) 8.7 % (20.5-51.1); MEAN CORPUSCULAR HEMOGLOBIN 29 pg (27-31); MEAN CORPUSCULAR HGB CONC 32 g/dL (33-37); MEAN CORPUSCULAR VOLUME 92.4 fL (80-94); MONOCYTES # (AUTO) 0.5 K/uL (0.8-1.0); MONOCYTES % (AUTO) 6.9 % (1.7-9.3); NEUTROPHILS # (AUTO) 5.6 K/uL (1.8-7.7); NEUTROPHILS % (AUTO) 77.5 % (42.2-75.2); PLATELET COUNT (AUTO) 94 K/uL (140-450); RED CELL DISTRIBUTION WIDTH 19.3 % (11.6-13.7); WHITE BLOOD COUNT (AUTO) 7.2 K/uL (4.8-10.8)
[2018-05-03 08:35] LABS: ANION GAP 18.4 (8-16); CARBON DIOXIDE 27.3 mmol/L (21-32); CHLORIDE 102 mmol/L (98-107); GLUCOSE 167 mg/dL (74-106); POTASSIUM 3.7 mmol/L (3.5-5.1); SODIUM SERUM 144 mmol/L (136-145)
[2018-05-03 08:36] LABS: UREA NITROGEN, BLOOD 91 mg/dL (7-18)
[2018-05-03 08:42] LABS: PHOSPHORUS 3.9 mg/dL (2.5-4.9)
[2018-05-03] MEDS: ALBUMIN HUMAN 25% 100 ML IV SCH (08:46)
[2018-05-03] MEDS: ASCORBIC ACID 500 MG/5 ML ORASYR GT SCH (08:46)
[2018-05-03] MEDS: levETIRAcetam 100 MG/ML ORASYR GT SCH ×2 (08:46→21:29)
[2018-05-03] MEDS: POTASSIUM CHLORIDE 20% 40 MEQ/15 ML UDC GT SCH (08:46)
[2018-05-03] MEDS: PANTOPRAZOLE 40 MG INJ VIAL IVP SCH (08:46)
[2018-05-03] MEDS: MIDODRINE 5 MG TAB GT SCH (08:47)
[2018-05-03] MEDS: ASPIRIN 81 MG TAB.CHEW GT SCH (08:47)
[2018-05-03] MEDS: LACTOBACILLUS RHAMNOSUS GG 1 EACH CAP GT SCH (08:47)
[2018-05-03] MEDS: VITAMIN D 400 IU TAB GT SCH (08:47)
[2018-05-03] MEDS: CALCIUM CARBONATE 500 MG TAB.CHEW GT SCH (08:47)
[2018-05-03] MEDS: INSULIN LANTUS 100 UNITS/ML 10 ML VIAL SUBQ SCH (09:19)
[2018-05-03] MEDS: MEROPENEM 500 MG in NACL 0.9% 50 ML IV SCH ×2 (10:32→21:30)
[2018-05-03 12:45] LABS: TRANSFERRIN 172 mg/dL (200-370)
[2018-05-03] MEDS: ATORVASTATIN 20 MG TAB GT SCH (21:30)
[2018-05-04] VITALS (7 sets, daily range): BP systolic 92–128; BP diastolic 57–64
[2018-05-04] MEDS: Z-GUARD PASTE TP SCH ×2 (01:16→12:08)
[2018-05-04] MEDS: HYDRAGUARD CREAM TP SCH ×2 (01:16→12:07)
[2018-05-04] MEDS: FUROSEMIDE 40 MG/4 ML VIAL IVP SCH (04:21)
[2018-05-04] MEDS: BLOOD GLUCOSE MONITORING 1 DEV DEV FS SCH ×4 (06:09→21:03)
[2018-05-04] MEDS: INSULIN LISPRO SLIDING SCALE 100 UNITS/ML VIAL SUBQ PRN ×3 (06:11→17:09)
[2018-05-04 06:26] LABS: EOSINOPHILS # (AUTO) 0.4 K/uL (0-0.4); LYMPHOCYTES # (AUTO) 0.7 K/uL (2.0-11.5)
[2018-05-04 06:32] LABS: BASOPHILS % (AUTO) 0.5 % (0.0-2.0); EOSINOPHILS % (AUTO) 5.2 % (0.0-4.0); HEMATOCRIT 23.1 % (36-52); HEMOGLOBIN 7.3 g/dL (12.0-18.0); LYMPHOCYTES % (AUTO) 9.4 % (20.5-51.1); MEAN CORPUSCULAR HEMOGLOBIN 30 pg (27-31); MEAN CORPUSCULAR HGB CONC 32 g/dL (33-37); MEAN CORPUSCULAR VOLUME 92.9 fL (80-94); MONOCYTES # (AUTO) 0.6 K/uL (0.8-1.0); MONOCYTES % (AUTO) 7.1 % (1.7-9.3); NEUTROPHILS # (AUTO) 6.1 K/uL (1.8-7.7); NEUTROPHILS % (AUTO) 77.8 % (42.2-75.2); PLATELET COUNT (AUTO) 112 K/uL (140-450); RED BLOOD CELL COUNT(AUTO) 2.49 MIL/uL (4.20-6.10); RED CELL DISTRIBUTION WIDTH 19.1 % (11.6-13.7); WHITE BLOOD COUNT (AUTO) 7.9 K/uL (4.8-10.8)
[2018-05-04] MEDS: COLISTIMETHATE SODIUM 150 MG VIAL IH SCH ×2 (07:38→18:53)
[2018-05-04] MEDS: ALBUTEROL SULFATE/IPRATROPIU 3 ML SOL IH SCH ×3 (07:39→18:53)
[2018-05-04] MEDS ORDERED: WATER STERILE 10 ML MC ONE (07:42)
[2018-05-04] MEDS: ASCORBIC ACID 500 MG/5 ML ORASYR GT SCH (08:47)
[2018-05-04] MEDS: POTASSIUM CHLORIDE 20% 40 MEQ/15 ML UDC GT SCH (08:48)
[2018-05-04] MEDS: levETIRAcetam 100 MG/ML ORASYR GT SCH ×2 (08:48→20:25)
[2018-05-04] MEDS: CALCIUM CARBONATE 500 MG TAB.CHEW GT SCH (08:49)
[2018-05-04] MEDS: VITAMIN D 400 IU TAB GT SCH (08:49)
[2018-05-04] MEDS: PANTOPRAZOLE 40 MG INJ VIAL IVP SCH (08:49)
[2018-05-04] MEDS: LACTOBACILLUS RHAMNOSUS GG 1 EACH CAP GT SCH (08:50)
[2018-05-04] MEDS: MIDODRINE 5 MG TAB GT SCH (08:50)
[2018-05-04] MEDS: ASPIRIN 81 MG TAB.CHEW GT SCH (08:50)
[2018-05-04] MEDS: INSULIN LANTUS 100 UNITS/ML 10 ML VIAL SUBQ SCH (08:53)
[2018-05-04] MEDS: MEROPENEM 500 MG in NACL 0.9% 50 ML IV SCH ×2 (08:56→20:24)
[2018-05-04 10:05] LABS: ANION GAP 20.6 (8-16); CHLORIDE 102 mmol/L (98-107); GLUCOSE 174 mg/dL (74-106); POTASSIUM 3.6 mmol/L (3.5-5.1); SODIUM SERUM 146 mmol/L (136-145)
[2018-05-04 10:07] LABS: CREATININE 3.1 mg/dL (0.7-1.3); UREA NITROGEN, BLOOD 92 mg/dL (7-18)
[2018-05-04] MEDS ORDERED: NACL 0.9% 1,000 ML IV SCH (11:05)
[2018-05-04] MEDS: ATORVASTATIN 20 MG TAB GT SCH (20:25)
[2018-05-05] VITALS (7 sets, daily range): BP systolic 103–130; BP diastolic 55–69
[2018-05-05] MEDS: HYDRAGUARD CREAM TP SCH ×2 (01:01→12:49)
[2018-05-05] MEDS: Z-GUARD PASTE TP SCH ×2 (01:01→12:49)
[2018-05-05] MEDS: BLOOD GLUCOSE MONITORING 1 DEV DEV FS SCH ×4 (05:47→20:50)
[2018-05-05 06:32] LABS: BASOPHILS % (AUTO) 0.5 % (0.0-2.0); EOSINOPHILS # (AUTO) 0.3 K/uL (0-0.4); EOSINOPHILS % (AUTO) 4.4 % (0.0-4.0); HEMATOCRIT 22.4 % (36-52); HEMOGLOBIN 7.2 g/dL (12.0-18.0); LYMPHOCYTES # (AUTO) 0.7 K/uL (2.0-11.5); LYMPHOCYTES % (AUTO) 9.3 % (20.5-51.1); MEAN CORPUSCULAR HEMOGLOBIN 29 pg (27-31); MEAN CORPUSCULAR HGB CONC 32 g/dL (33-37); MEAN CORPUSCULAR VOLUME 91.7 fL (80-94); MONOCYTES # (AUTO) 0.5 K/uL (0.8-1.0); MONOCYTES % (AUTO) 6.5 % (1.7-9.3); NEUTROPHILS # (AUTO) 6.3 K/uL (1.8-7.7); NEUTROPHILS % (AUTO) 79.3 % (42.2-75.2); PLATELET COUNT (AUTO) 122 K/uL (140-450); RED BLOOD CELL COUNT(AUTO) 2.45 MIL/uL (4.20-6.10); RED CELL DISTRIBUTION WIDTH 19.5 % (11.6-13.7)
[2018-05-05] MEDS: ALBUTEROL SULFATE/IPRATROPIU 3 ML SOL IH SCH ×3 (07:20→19:01)
[2018-05-05] MEDS: COLISTIMETHATE SODIUM 150 MG VIAL IH SCH ×2 (07:20→19:01)
[2018-05-05] MEDS: POTASSIUM CHLORIDE 20% 40 MEQ/15 ML UDC GT SCH (08:32)
[2018-05-05] MEDS: CALCIUM CARBONATE 500 MG TAB.CHEW GT SCH (08:32)
[2018-05-05] MEDS: ASCORBIC ACID 500 MG/5 ML ORASYR GT SCH (08:32)
[2018-05-05] MEDS: levETIRAcetam 100 MG/ML ORASYR GT SCH ×2 (08:32→20:32)
[2018-05-05] MEDS: LACTOBACILLUS RHAMNOSUS GG 1 EACH CAP GT SCH (08:33)
[2018-05-05] MEDS: PANTOPRAZOLE 40 MG INJ VIAL IVP SCH (08:33)
[2018-05-05] MEDS: ASPIRIN 81 MG TAB.CHEW GT SCH (08:33)
[2018-05-05] MEDS: MIDODRINE 5 MG TAB GT SCH (08:33)
[2018-05-05] MEDS: VITAMIN D 400 IU TAB GT SCH (08:33)
[2018-05-05] MEDS: FUROSEMIDE 40 MG/4 ML VIAL IVP SCH (08:34)
[2018-05-05] MEDS: MEROPENEM 500 MG in NACL 0.9% 50 ML IV SCH ×2 (08:36→20:32)
[2018-05-05] MEDS: INSULIN LANTUS 100 UNITS/ML 10 ML VIAL SUBQ SCH (09:14)
[2018-05-05 09:29] LABS: ANION GAP 17.8 (8-16); CARBON DIOXIDE 28.7 mmol/L (21-32); CHLORIDE 106 mmol/L (98-107); GLUCOSE 180 mg/dL (74-106); POTASSIUM 3.5 mmol/L (3.5-5.1); SODIUM SERUM 149 mmol/L (136-145)
[2018-05-05 09:31] LABS: UREA NITROGEN, BLOOD 97 mg/dL (7-18)
[2018-05-05] MEDS: INSULIN LISPRO SLIDING SCALE 100 UNITS/ML VIAL SUBQ PRN (11:52)
[2018-05-05] MEDS: ATORVASTATIN 20 MG TAB GT SCH (20:33)
[2018-05-06] MEDS: HYDRAGUARD CREAM TP SCH ×2 (01:07→13:16)
[2018-05-06] MEDS: Z-GUARD PASTE TP SCH ×2 (01:07→13:16)
[2018-05-06 04:10] VITALS: BP 115/68
[2018-05-06] MEDS: BLOOD GLUCOSE MONITORING 1 DEV DEV FS SCH ×4 (05:45→20:32)
[2018-05-06] MEDS: INSULIN LISPRO SLIDING SCALE 100 UNITS/ML VIAL SUBQ PRN ×2 (06:12→13:20)
[2018-05-06 07:08] LABS: BASOPHILS # (AUTO) 0.1 K/uL (0.00-0.22); BASOPHILS % (AUTO) 0.8 % (0.0-2.0); EOSINOPHILS # (AUTO) 0.4 K/uL (0-0.4); EOSINOPHILS % (AUTO) 4.3 % (0.0-4.0); HEMATOCRIT 23.6 % (36-52); HEMOGLOBIN 7.5 g/dL (12.0-18.0); LYMPHOCYTES # (AUTO) 0.9 K/uL (2.0-11.5); LYMPHOCYTES % (AUTO) 10.3 % (20.5-51.1); MEAN CORPUSCULAR HEMOGLOBIN 30 pg (27-31); MEAN CORPUSCULAR HGB CONC 32 g/dL (33-37); MEAN CORPUSCULAR VOLUME 92.8 fL (80-94); MONOCYTES # (AUTO) 0.6 K/uL (0.8-1.0); MONOCYTES % (AUTO) 7.1 % (1.7-9.3); NEUTROPHILS # (AUTO) 6.7 K/uL (1.8-7.7); NEUTROPHILS % (AUTO) 77.5 % (42.2-75.2); PLATELET COUNT (AUTO) 139 K/uL (140-450); RED BLOOD CELL COUNT(AUTO) 2.54 MIL/uL (4.20-6.10); RED CELL DISTRIBUTION WIDTH 19.1 % (11.6-13.7); WHITE BLOOD COUNT (AUTO) 8.6 K/uL (4.8-10.8)
[2018-05-06] MEDS: ALBUTEROL SULFATE/IPRATROPIU 3 ML SOL IH SCH ×3 (07:12→19:59)
[2018-05-06] MEDS: COLISTIMETHATE SODIUM 150 MG VIAL IH SCH ×2 (07:13→19:59)
[2018-05-06] MEDS ORDERED: WATER STERILE 10 ML MC ONE (07:17)
[2018-05-06 07:53] LABS: MAGNESIUM 2.3 mg/dL (1.8-2.4); PHOSPHORUS 4.3 mg/dL (2.5-4.9)
[2018-05-06 08:00] VITALS: BP 125/74
[2018-05-06] MEDS: PANTOPRAZOLE 40 MG INJ VIAL IVP SCH (09:21)
[2018-05-06] MEDS: ASCORBIC ACID 500 MG/5 ML ORASYR GT SCH (09:21)
[2018-05-06] MEDS: POTASSIUM CHLORIDE 20% 40 MEQ/15 ML UDC GT SCH (09:21)
[2018-05-06] MEDS: levETIRAcetam 100 MG/ML ORASYR GT SCH ×2 (09:22→20:34)
[2018-05-06] MEDS: CALCIUM CARBONATE 500 MG TAB.CHEW GT SCH (09:22)
[2018-05-06] MEDS: MEROPENEM 500 MG in NACL 0.9% 50 ML IV SCH ×2 (09:22→20:35)
[2018-05-06] MEDS: LACTOBACILLUS RHAMNOSUS GG 1 EACH CAP GT SCH (09:23)
[2018-05-06] MEDS: ASPIRIN 81 MG TAB.CHEW GT SCH (09:23)
[2018-05-06] MEDS: VITAMIN D 400 IU TAB GT SCH (09:23)
[2018-05-06] MEDS: FUROSEMIDE 40 MG/4 ML VIAL IVP SCH (09:23)
[2018-05-06] MEDS: MIDODRINE 5 MG TAB GT SCH (09:24)
[2018-05-06] MEDS: INSULIN LANTUS 100 UNITS/ML 10 ML VIAL SUBQ SCH (09:26)
[2018-05-06 09:39] LABS: CARBON DIOXIDE 30.4 mmol/L (21-32); CHLORIDE 104 mmol/L (98-107); GLUCOSE 183 mg/dL (74-106); POTASSIUM 3.4 mmol/L (3.5-5.1); SODIUM SERUM 146 mmol/L (136-145)
[2018-05-06 09:41] LABS: UREA NITROGEN, BLOOD 96 mg/dL (7-18)
[2018-05-06] MEDS ORDERED: KCL 20 MEQ/WATER INJ PREMIX 100 ML IV SCH (11:00)
[2018-05-06 12:00] VITALS: BP 124/62
[2018-05-06] MEDS ORDERED: MER500I IV (14:02)
[2018-05-06] MEDS ORDERED: COLI150P4 IH (14:02)
[2018-05-06] MEDS ORDERED: Potassium Chloride 20% GT (14:02)
[2018-05-06] MEDS ORDERED: ALBU3SOL83 IH (14:02)
[2018-05-06] MEDS ORDERED: KEP500L GT (14:02)
[2018-05-06] MEDS ORDERED: HUMSLIDE SUBQ (14:02)
[2018-05-06 16:00] VITALS: BP 118/70
[2018-05-06 20:00] VITALS: BP 119/63
[2018-05-06] MEDS: ATORVASTATIN 20 MG TAB GT SCH (20:35)
[2018-05-06 23:57] VITALS: BP 118/64
[2018-05-07] MEDS: HYDRAGUARD CREAM TP SCH ×2 (01:36→13:00)
[2018-05-07] MEDS: Z-GUARD PASTE TP SCH ×2 (01:37→13:00)
[2018-05-07 04:00] VITALS: BP 118/68
[2018-05-07] MEDS: BLOOD GLUCOSE MONITORING 1 DEV DEV FS SCH ×4 (06:00→20:17)
[2018-05-07] MEDS: COLISTIMETHATE SODIUM 150 MG VIAL IH SCH ×3 (06:11→19:06)
[2018-05-07] MEDS: INSULIN LISPRO SLIDING SCALE 100 UNITS/ML VIAL SUBQ PRN ×3 (06:12→16:31)
[2018-05-07] MEDS: ALBUTEROL SULFATE/IPRATROPIU 3 ML SOL IH SCH ×3 (07:30→19:06)
[2018-05-07] MEDS ORDERED: WATER STERILE 10 ML MC ONE ×2 (07:35→19:09)
[2018-05-07 07:37] LABS: BASOPHILS # (AUTO) 0.1 K/uL (0.00-0.22); EOSINOPHILS # (AUTO) 0.6 K/uL (0-0.4); EOSINOPHILS % (AUTO) 5.6 % (0.0-4.0); MONOCYTES # (AUTO) 0.7 K/uL (0.8-1.0); RED CELL DISTRIBUTION WIDTH 19.4 % (11.6-13.7)
[2018-05-07 07:46] LABS: BASOPHILS % (AUTO) 0.8 % (0.0-2.0); HEMATOCRIT 23.4 % (36-52); HEMOGLOBIN 7.5 g/dL (12.0-18.0); LYMPHOCYTES # (AUTO) 0.9 K/uL (2.0-11.5); LYMPHOCYTES % (AUTO) 8.9 % (20.5-51.1); MEAN CORPUSCULAR HEMOGLOBIN 30 pg (27-31); MEAN CORPUSCULAR HGB CONC 32 g/dL (33-37); MEAN CORPUSCULAR VOLUME 92.5 fL (80-94); MONOCYTES % (AUTO) 6.4 % (1.7-9.3); NEUTROPHILS # (AUTO) 8.1 K/uL (1.8-7.7); NEUTROPHILS % (AUTO) 78.3 % (42.2-75.2); PLATELET COUNT (AUTO) 156 K/uL (140-450); RED BLOOD CELL COUNT(AUTO) 2.53 MIL/uL (4.20-6.10); WHITE BLOOD COUNT (AUTO) 10.3 K/uL (4.8-10.8)
[2018-05-07 07:51] VITALS: BP 129/66
[2018-05-07 08:26] LABS: ANION GAP 14.2 (8-16); CARBON DIOXIDE 29.8 mmol/L (21-32); CHLORIDE 103 mmol/L (98-107); CREATININE 2.9 mg/dL (0.7-1.3); GLUCOSE 171 mg/dL (74-106); SODIUM SERUM 143 mmol/L (136-145)
[2018-05-07 08:36] LABS: UREA NITROGEN, BLOOD 96 mg/dL (7-18)
[2018-05-07] MEDS: PANTOPRAZOLE 40 MG INJ VIAL IVP SCH (09:27)
[2018-05-07] MEDS: ASPIRIN 81 MG TAB.CHEW GT SCH (09:28)
[2018-05-07] MEDS: LACTOBACILLUS RHAMNOSUS GG 1 EACH CAP GT SCH (09:29)
[2018-05-07] MEDS: VITAMIN D 400 IU TAB GT SCH (09:29)
[2018-05-07] MEDS: FUROSEMIDE 20 MG TAB PO SCH (09:30)
[2018-05-07] MEDS: MIDODRINE 5 MG TAB GT SCH (09:30)
[2018-05-07] MEDS: POTASSIUM CHLORIDE 20% 40 MEQ/15 ML UDC GT SCH (09:30)
[2018-05-07] MEDS: levETIRAcetam 100 MG/ML ORASYR GT SCH ×2 (09:31→20:08)
[2018-05-07] MEDS: ASCORBIC ACID 500 MG/5 ML ORASYR GT SCH (09:31)
[2018-05-07] MEDS: MEROPENEM 500 MG in NACL 0.9% 50 ML IV SCH ×2 (09:32→20:08)
[2018-05-07] MEDS: INSULIN LANTUS 100 UNITS/ML 10 ML VIAL SUBQ SCH (09:59)
[2018-05-07 12:00] VITALS: BP 122/66
[2018-05-07] MEDS ORDERED: SODIUM FERRIC GLUCONATE 125 MG in NACL 0.9% 100 ML IV SCH (14:00)
[2018-05-07 16:00] VITALS: BP 124/67
[2018-05-07 20:00] VITALS: BP 120/60
[2018-05-07] MEDS: ATORVASTATIN 20 MG TAB GT SCH (20:08)
[2018-05-08] VITALS: BP 109/58
[2018-05-08] MEDS: HYDRAGUARD CREAM TP SCH ×2 (00:23→13:00)
[2018-05-08] MEDS: Z-GUARD PASTE TP SCH ×2 (00:23→13:00)
[2018-05-08 04:00] VITALS: BP 112/65
[2018-05-08] MEDS: BLOOD GLUCOSE MONITORING 1 DEV DEV FS SCH ×4 (06:32→21:18)
[2018-05-08 06:48] LABS: BASOPHILS # (AUTO) 0.1 K/uL (0.00-0.22); BASOPHILS % (AUTO) 1.2 % (0.0-2.0); EOSINOPHILS # (AUTO) 0.3 K/uL (0-0.4); EOSINOPHILS % (AUTO) 4.5 % (0.0-4.0); HEMATOCRIT 21.6 % (36-52); HEMOGLOBIN 7.1 g/dL (12.0-18.0); LYMPHOCYTES # (AUTO) 0.9 K/uL (2.0-11.5); LYMPHOCYTES % (AUTO) 12.1 % (20.5-51.1); MEAN CORPUSCULAR HEMOGLOBIN 30 pg (27-31); MEAN CORPUSCULAR HGB CONC 33 g/dL (33-37); MEAN CORPUSCULAR VOLUME 92.1 fL (80-94); MONOCYTES # (AUTO) 0.6 K/uL (0.8-1.0); MONOCYTES % (AUTO) 7.4 % (1.7-9.3); NEUTROPHILS # (AUTO) 5.8 K/uL (1.8-7.7); NEUTROPHILS % (AUTO) 74.8 % (42.2-75.2); PLATELET COUNT (AUTO) 139 K/uL (140-450); RED BLOOD CELL COUNT(AUTO) 2.34 MIL/uL (4.20-6.10); RED CELL DISTRIBUTION WIDTH 19.3 % (11.6-13.7); WHITE BLOOD COUNT (AUTO) 7.7 K/uL (4.8-10.8)
[2018-05-08] MEDS: COLISTIMETHATE SODIUM 150 MG VIAL IH SCH ×2 (07:14→19:58)
[2018-05-08] MEDS: ALBUTEROL SULFATE/IPRATROPIU 3 ML SOL IH SCH ×3 (07:14→19:58)
[2018-05-08] MEDS ORDERED: WATER STERILE 10 ML MC ONE ×2 (07:19→19:42)
[2018-05-08 07:21] LABS: ANION GAP 13.5 (8-16); CARBON DIOXIDE 30.2 mmol/L (21-32); CHLORIDE 103 mmol/L (98-107); GLUCOSE 153 mg/dL (74-106); POTASSIUM 3.7 mmol/L (3.5-5.1); SODIUM SERUM 143 mmol/L (136-145)
[2018-05-08 07:24] LABS: UREA NITROGEN, BLOOD 96 mg/dL (7-18)
[2018-05-08 07:30] LABS: MAGNESIUM 2.4 mg/dL (1.8-2.4); PHOSPHORUS 4.4 mg/dL (2.5-4.9)
[2018-05-08 08:17] VITALS: BP 106/60
[2018-05-08] MEDS: levETIRAcetam 100 MG/ML ORASYR GT SCH ×2 (09:22→21:18)
[2018-05-08] MEDS: ASCORBIC ACID 500 MG/5 ML ORASYR GT SCH (09:23)
[2018-05-08] MEDS: VITAMIN D 400 IU TAB GT SCH (09:23)
[2018-05-08] MEDS: POTASSIUM CHLORIDE 20% 40 MEQ/15 ML UDC GT SCH (09:23)
[2018-05-08] MEDS: FUROSEMIDE 20 MG TAB PO SCH (09:24)
[2018-05-08] MEDS: LACTOBACILLUS RHAMNOSUS GG 1 EACH CAP GT SCH (09:24)
[2018-05-08] MEDS: MEROPENEM 500 MG in NACL 0.9% 50 ML IV SCH ×2 (09:24→21:18)
[2018-05-08] MEDS: ASPIRIN 81 MG TAB.CHEW GT SCH (09:24)
[2018-05-08] MEDS: MIDODRINE 5 MG TAB GT SCH (09:24)
[2018-05-08] MEDS: PANTOPRAZOLE 40 MG INJ VIAL IVP SCH (09:25)
[2018-05-08] MEDS: INSULIN LANTUS 100 UNITS/ML 10 ML VIAL SUBQ SCH (09:26)
[2018-05-08 12:00] VITALS: BP 91/48
[2018-05-08 16:00] VITALS: BP 101/54
[2018-05-08 20:00] VITALS: BP 97/52
[2018-05-08] MEDS: ATORVASTATIN 20 MG TAB GT SCH (21:18)
[2018-05-08] MEDS: INSULIN LISPRO SLIDING SCALE 100 UNITS/ML VIAL SUBQ PRN (21:30)
[2018-05-09] VITALS: BP 104/55
[2018-05-09] MEDS: HYDRAGUARD CREAM TP SCH ×2 (00:19→13:00)
[2018-05-09] MEDS: Z-GUARD PASTE TP SCH ×2 (00:20→13:00)
[2018-05-09 04:00] VITALS: BP 100/52
[2018-05-09 06:31] LABS: BASOPHILS # (AUTO) 0.1 K/uL (0.00-0.22); BASOPHILS % (AUTO) 1.4 % (0.0-2.0); EOSINOPHILS # (AUTO) 0.5 K/uL (0-0.4); EOSINOPHILS % (AUTO) 6.9 % (0.0-4.0); HEMATOCRIT 22.2 % (36-52); HEMOGLOBIN 7.2 g/dL (12.0-18.0); LYMPHOCYTES # (AUTO) 0.9 K/uL (2.0-11.5); LYMPHOCYTES % (AUTO) 12.8 % (20.5-51.1); MEAN CORPUSCULAR HEMOGLOBIN 30 pg (27-31); MEAN CORPUSCULAR HGB CONC 32 g/dL (33-37); MEAN CORPUSCULAR VOLUME 93.1 fL (80-94); MONOCYTES # (AUTO) 0.6 K/uL (0.8-1.0); MONOCYTES % (AUTO) 8.4 % (1.7-9.3); NEUTROPHILS # (AUTO) 5.1 K/uL (1.8-7.7); NEUTROPHILS % (AUTO) 70.5 % (42.2-75.2); PLATELET COUNT (AUTO) 141 K/uL (140-450); RED BLOOD CELL COUNT(AUTO) 2.38 MIL/uL (4.20-6.10); RED CELL DISTRIBUTION WIDTH 19.6 % (11.6-13.7); WHITE BLOOD COUNT (AUTO) 7.2 K/uL (4.8-10.8)
[2018-05-09] MEDS: BLOOD GLUCOSE MONITORING 1 DEV DEV FS SCH ×5 (06:48→20:18)
[2018-05-09] MEDS ORDERED: WATER STERILE 10 ML MC ONE (07:11)
[2018-05-09] MEDS: COLISTIMETHATE SODIUM 150 MG VIAL IH SCH ×2 (07:19→19:02)
[2018-05-09] MEDS: ALBUTEROL SULFATE/IPRATROPIU 3 ML SOL IH SCH ×3 (07:20→19:01)
[2018-05-09 07:44] LABS: ANION GAP 14.1 (8-16); CARBON DIOXIDE 30.5 mmol/L (21-32); CHLORIDE 102 mmol/L (98-107); CREATININE 2.9 mg/dL (0.7-1.3); GLUCOSE 141 mg/dL (74-106); POTASSIUM 3.6 mmol/L (3.5-5.1); SODIUM SERUM 143 mmol/L (136-145)
[2018-05-09 07:47] VITALS: BP 111/56
[2018-05-09] MEDS: MIDODRINE 5 MG TAB GT SCH (08:23)
[2018-05-09] MEDS: ASPIRIN 81 MG TAB.CHEW GT SCH (08:23)
[2018-05-09] MEDS: VITAMIN D 400 IU TAB GT SCH (08:23)
[2018-05-09] MEDS: FUROSEMIDE 20 MG TAB PO SCH (08:23)
[2018-05-09] MEDS: PANTOPRAZOLE 40 MG INJ VIAL IVP SCH (08:24)
[2018-05-09] MEDS: ASCORBIC ACID 500 MG/5 ML ORASYR GT SCH (08:24)
[2018-05-09] MEDS: LACTOBACILLUS RHAMNOSUS GG 1 EACH CAP GT SCH (08:24)
[2018-05-09] MEDS: POTASSIUM CHLORIDE 20% 40 MEQ/15 ML UDC GT SCH (08:24)
[2018-05-09] MEDS: levETIRAcetam 100 MG/ML ORASYR GT SCH ×2 (08:25→20:18)
[2018-05-09] MEDS: INSULIN LANTUS 100 UNITS/ML 10 ML VIAL SUBQ SCH (08:31)
[2018-05-09] MEDS: MEROPENEM 500 MG in NACL 0.9% 50 ML IV SCH ×2 (08:32→20:17)
[2018-05-09 08:40] LABS: UREA NITROGEN, BLOOD 93 mg/dL (7-18)
[2018-05-09] MEDS ORDERED: LORazepam 2 MG/ML VIAL IM/IVP PRN (10:15)
[2018-05-09] MEDS ORDERED: HYDROcodone/APAP 5/325 MG 1 TAB TAB PO PRN (10:15)
[2018-05-09 11:57] VITALS: BP 103/48
[2018-05-09] MEDS ORDERED: HYDROCOLLOID DRESSING TP SCH (13:00)
[2018-05-09] MEDS ORDERED: EPOETIN ALFA 10,000 UNITS/ML VIAL SUBQ SCH (14:00)
[2018-05-09 16:00] VITALS: BP 97/43
[2018-05-09 20:00] VITALS: BP 115/46
[2018-05-09] MEDS: ATORVASTATIN 20 MG TAB GT SCH (20:17)
[2018-05-10] VITALS: BP 112/54
[2018-05-10] MEDS: HYDRAGUARD CREAM TP SCH ×2 (01:05→15:37)
[2018-05-10] MEDS: Z-GUARD PASTE TP SCH ×2 (01:05→15:38)
[2018-05-10 04:00] VITALS: BP 112/55
[2018-05-10] MEDS: BLOOD GLUCOSE MONITORING 1 DEV DEV FS SCH ×4 (06:51→20:53)
[2018-05-10] MEDS: ALBUTEROL SULFATE/IPRATROPIU 3 ML SOL IH SCH ×3 (07:07→19:32)
[2018-05-10] MEDS: COLISTIMETHATE SODIUM 150 MG VIAL IH SCH ×2 (07:22→19:32)
[2018-05-10 08:00] VITALS: BP 124/61
[2018-05-10] MEDS: FUROSEMIDE 20 MG TAB PO SCH (09:32)
[2018-05-10] MEDS: LACTOBACILLUS RHAMNOSUS GG 1 EACH CAP GT SCH (09:32)
[2018-05-10] MEDS: ASPIRIN 81 MG TAB.CHEW GT SCH (09:32)
[2018-05-10] MEDS: MIDODRINE 5 MG TAB GT SCH (09:32)
[2018-05-10] MEDS: ASCORBIC ACID 500 MG/5 ML ORASYR GT SCH (09:33)
[2018-05-10] MEDS: POTASSIUM CHLORIDE 20% 40 MEQ/15 ML UDC GT SCH (09:33)
[2018-05-10] MEDS: levETIRAcetam 100 MG/ML ORASYR GT SCH ×2 (09:33→20:54)
[2018-05-10] MEDS: PANTOPRAZOLE 40 MG INJ VIAL IVP SCH (09:33)
[2018-05-10] MEDS: MEROPENEM 500 MG in NACL 0.9% 50 ML IV SCH ×2 (09:34→20:54)
[2018-05-10] MEDS: INSULIN LANTUS 100 UNITS/ML 10 ML VIAL SUBQ SCH (09:35)
[2018-05-10 12:01] VITALS: BP 104/76
[2018-05-10 17:03] VITALS: BP 105/72
[2018-05-10] MEDS ORDERED: WATER STERILE 10 ML MC ONE (19:32)
[2018-05-10 20:00] VITALS: BP 114/53
[2018-05-10] MEDS: ATORVASTATIN 20 MG TAB GT SCH (20:54)
[2018-05-11] VITALS (7 sets, daily range): BP systolic 104–126; BP diastolic 44–58
[2018-05-11] MEDS: HYDRAGUARD CREAM TP SCH ×2 (00:54→13:33)
[2018-05-11] MEDS: Z-GUARD PASTE TP SCH ×2 (00:54→13:34)
[2018-05-11] MEDS: BLOOD GLUCOSE MONITORING 1 DEV DEV FS SCH ×4 (06:02→20:32)
[2018-05-11] MEDS: ALBUTEROL SULFATE/IPRATROPIU 3 ML SOL IH SCH ×3 (06:58→19:52)
[2018-05-11] MEDS: COLISTIMETHATE SODIUM 150 MG VIAL IH SCH ×2 (07:10→19:52)
[2018-05-11] MEDS: MEROPENEM 500 MG in NACL 0.9% 50 ML IV SCH ×2 (09:31→20:18)
[2018-05-11] MEDS: POTASSIUM CHLORIDE 20% 40 MEQ/15 ML UDC GT SCH (09:32)
[2018-05-11] MEDS: PANTOPRAZOLE 40 MG INJ VIAL IVP SCH (09:32)
[2018-05-11] MEDS: LACTOBACILLUS RHAMNOSUS GG 1 EACH CAP GT SCH (09:32)
[2018-05-11] MEDS: ASPIRIN 81 MG TAB.CHEW GT SCH (09:32)
[2018-05-11] MEDS: MIDODRINE 5 MG TAB GT SCH (09:33)
[2018-05-11] MEDS: levETIRAcetam 100 MG/ML ORASYR GT SCH (09:33)
[2018-05-11] MEDS: FUROSEMIDE 20 MG TAB PO SCH (09:33)
[2018-05-11] MEDS: ASCORBIC ACID 500 MG/5 ML ORASYR GT SCH (09:33)
[2018-05-11] MEDS: INSULIN LANTUS 100 UNITS/ML 10 ML VIAL SUBQ SCH (09:37)
[2018-05-11] MEDS ORDERED: KEP500L GT (17:58)
[2018-05-11] MEDS ORDERED: PROC10I SUBQ (17:58)
[2018-05-11] MEDS: ATORVASTATIN 20 MG TAB GT SCH (20:18)
[2018-05-11] MEDS ORDERED: levETIRAcetam 100 MG/ML ORASYR GT SCH (21:00)
[2018-05-16] MEDS ORDERED: EPOETIN ALFA 10,000 UNITS/ML VIAL SUBQ SCH (09:00)
== END 2018-05-11 21:50 | DRG 720 ==
LOC: MED 05:05 → MIC 06:52 → MTU 04-28 18:55
PROVIDERS: ADMIT General Practice; ATTEND General Practice
PROC: 5A1955Z Respiratory Ventilation, Greater than 96 Consecutive Hours (ICD-10-PCS; principal; 2018-04-25)
DX: A41.89 Other specified sepsis (principal); J69.0 Pneumonitis due to inhalation of food and vomit; E43 Unspecified severe protein-calorie malnutrition; G93.1 Anoxic brain damage, not elsewhere classified; J15.0 Pneumonia due to Klebsiella pneumoniae; J15.6 Pneumonia due to other Gram-negative bacteria; J96.21 Acute and chronic respiratory failure with hypoxia; L89.152 Pressure ulcer of sacral region, stage 2; N17.0 Acute kidney failure with tubular necrosis; I50.43 Acute on chronic combined systolic (congestive) and diastolic (congestive) heart failure; Z93.0 Tracheostomy status; R53.2 Functional quadriplegia; G30.9 Alzheimer's disease, unspecified; I69.351 Hemiplegia and hemiparesis following cerebral infarction affecting right dominant side; F02.80 Dementia in other diseases classified elsewhere, unspecified severity, without behavioral disturbance, psychotic disturbance, mood disturbance, and anxiety; R13.10 Dysphagia, unspecified; N39.0 Urinary tract infection, site not specified; R65.20 Severe sepsis without septic shock; N40.0 Benign prostatic hyperplasia without lower urinary tract symptoms; K21.9 Gastro-esophageal reflux disease without esophagitis; I25.10 Atherosclerotic heart disease of native coronary artery without angina pectoris; Z93.1 Gastrostomy status; N18.3 Chronic kidney disease, stage 3 (moderate); E11.22 Type 2 diabetes mellitus with diabetic chronic kidney disease; K59.00 Constipation, unspecified; D64.9 Anemia, unspecified; E83.41 Hypermagnesemia; E83.39 Other disorders of phosphorus metabolism; E66.9 Obesity, unspecified; I13.0 Hypertensive heart and chronic kidney disease with heart failure and stage 1 through stage 4 chronic kidney disease, or unspecified chronic kidney disease; G40.909 Epilepsy, unspecified, not intractable, without status epilepticus; B96.4 Proteus (mirabilis) (morganii) as the cause of diseases classified elsewhere; J40 Bronchitis, not specified as acute or chronic; E87.0 Hyperosmolality and hypernatremia; Z68.30 Body mass index [BMI] 30.0-30.9, adult; Z79.82 Long term (current) use of aspirin; Z79.899 Other long term (current) drug therapy; Z86.74 Personal history of sudden cardiac arrest; Z95.1 Presence of aortocoronary bypass graft; Z79.4 Long term (current) use of insulin; Z22.322 Carrier or suspected carrier of Methicillin resistant Staphylococcus aureus; Z87.891 Personal history of nicotine dependence
CPT/HCPCS: 36415; 36600; 71045; 76770; 80048; 80053; 80202; 81001; 82272; 82306; 82575; 82607; 82746; 82803; 82948; 83540; 83605; 83690; 83735; 83970; 84100; 84134; 84300; 84443; 85025; 85045; 85610; 85730; 87040; 87070; 87081; 87086; 87186; 87205; 87804; 93005; 94003; 94640; 99291; C9113; J0770; J0885; J1170; J1644; J1815; J1940; J2060; J2185; J2543; J2916; J3370; J3480; J7030; J7060; J7620; P9046; Q0092

== ENCOUNTER 2018-05-23 14:35 | Inpatient (IN) | payer MEDICAID, MEDICARE ==
[~2018-05-23] VITALS: Ht 175.3 cm; Wt 69.9 kg
[~2018-05-23 14:35] MED LIST changes: -ACET-7756 GT; -ALEN70TA1 GT; +ASCO-786 PO; +ASPI-1677 GT; -ATOR20TA40 GT; +ATOR40TA GT; -ATRN INH; -CARV3.122 GT; -FERR75LI22 GT; +FURO-572 GT; +HEPA500056 SQ; -HYDR-5122 GT; +INSU100S22 SUBQ; -KEP500 IV; +KEP500L GT; -LACT1CAP8 GT; +LANS15EC28 GT; -LAS20I IVP; -MERO500P7 IV; -PANT40EC GT; +PRO5 GT; +PROC10I SUBQ; -PRON INH; +Potassium Chloride 20% GT; -TAMS0.4C96 GT; -Tpn Per Pharmacy MC; -Vancomycin Per Pharmacy MC
--- NOTE | 2018-05-23 14:35 | NUR ---
PT KI LOZOYA, CURRENTLY AWAITING BED
[2018-05-23 14:38] VITALS: BP 121/67
--- NOTE | 2018-05-23 14:50 | NUR ---
PT TAKEN TO BED 7 BY EMS CREW
--- NOTE | 2018-05-23 14:52 | NUR ---
ADMITTING DX: ABNORMAL LABS PATIENT BIB [facility] FROM [facility] PLACED ON A [employer] CARESCAPE R860 WITH VENTILATOR SETTINGS NOTED Addendum: 05/23/18 at [address] KOFI GOSS ED AWARE OF VENTILATOR SETTINGS NOTED
--- NOTE | 2018-05-23 14:55 | NUR ---
SPUTUM CULTURE COLLECTED FOR VAP
--- NOTE | 2018-05-23 14:55 | NUR ---
PT. BIB ALS VENT DEPENDENT PT BEING MANUALLY VENTILATED [place] [facility] [place] ABNORMAL LABS BUN 94 AND CR 2.9 VENT SETTINGS AC BACKUP RATE 12 TIDAL VOLUME 450 PEEP +5, FIO2 28% PT PRESENT WITH WARM AND DRY SKIN TO TOUCH. PT HAS L UPPER ARM PICC LINE PRESENT INTACT NO REDNESS OR SWELLING NOTED. G TUBE PRESENT UPON ARRIVAL. PT. 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 LS: CLEAR BILAT. PT INCONTINENT WITH DIAPER IN PLACE. NO WOUNDS NOTED. ER MD MADE AWARE. WILL CONTINUE TO MONITOR. SAFETY PRECAUTIONS IN PLACE. RT AT BEDSIDE. HX; CHRONIC RESP FAILURE/TRACH/VENT DEPENDENT, CVA, DEMENTIA, ALZHEIMER, ENCELOPATHRY, CARDIOMYOPATHY, CRANIOTOMY, DM RX; LASIX, ATORVASTATIN, HEPARIN, INSULIN
[2018-05-23] MEDS ORDERED: NACL 0.9% 1,000 ML IV SCH ×2 (15:23→18:34)
--- NOTE | 2018-05-23 16:00 | NUR ---
PT. IN BED, VSS. HOB ELEVATED. REPOSITIONED FOR COMFORT WILL CONTINUE TO MONITOR.
[2018-05-23 16:11] LABS: BASOPHILS # (AUTO) 0.1 K/uL (0.00-0.22); BASOPHILS % (AUTO) 0.7 % (0.0-2.0); EOSINOPHILS # (AUTO) 1.1 K/uL (0-0.4); EOSINOPHILS % (AUTO) 13.9 % (0.0-4.0); HEMOGLOBIN 7.7 g/dL (12.0-18.0); LYMPHOCYTES # (AUTO) 1.2 K/uL (2.0-11.5); LYMPHOCYTES % (AUTO) 15.5 % (20.5-51.1); MEAN CORPUSCULAR HEMOGLOBIN 30 pg (27-31); MEAN CORPUSCULAR HGB CONC 32 g/dL (33-37); MONOCYTES # (AUTO) 0.9 K/uL (0.8-1.0); MONOCYTES % (AUTO) 11.9 % (1.7-9.3); NEUTROPHILS # (AUTO) 4.4 K/uL (1.8-7.7); PLATELET COUNT (AUTO) 126 K/uL (140-450); RED BLOOD CELL COUNT(AUTO) 2.55 MIL/uL (4.20-6.10); RED CELL DISTRIBUTION WIDTH 19.8 % (11.6-13.7); WHITE BLOOD COUNT (AUTO) 7.6 K/uL (4.8-10.8)
[2018-05-23 16:39] LABS: ANION GAP 11.2 (8-16); ASPARTATE AMINOTRANSFERASE 18 U/L (15-37); CARBON DIOXIDE 31.7 mmol/L (21-32); CHLORIDE 100 mmol/L (98-107); CREATININE 2.9 mg/dL (0.7-1.3); GLUCOSE 128 mg/dL (74-106); POTASSIUM 4.9 mmol/L (3.5-5.1); SODIUM SERUM 138 mmol/L (136-145); TOTAL BILIRUBIN 0.4 mg/dL (0.0-1.0)
--- NOTE | 2018-05-23 16:45 | NUR ---
RT AT BEDSIDE AT THIS TIME.
[2018-05-23 16:49] VITALS: BP 104/65
--- NOTE | 2018-05-23 16:49 | NUR ---
CLAMP OPERATOR CALLED TO BEDSDIE PATIENT PRESENTING WITH INCREASED COUGHING ASSESSMENT DONE BREATH SOUNDS COARSE RHONCHI BILATERAL DEEP TRACHEAL SUCTION FOR LARGE THIN TO FROTHY OALE YELLOW SECRETIONS OROPHARYNGEAL SUCTIONING FOR COPIOUS AMOUNT OF THICK CLEAR TO FROHTY SECRETIONS STOMA SUCTIONING FOR SMALL THICK CLEAR SECRETONS AIRWAY PATENT
--- NOTE | 2018-05-23 17:00 | NUR ---
TRACH CARE NOTED
[2018-05-23 17:01] LABS: UREA NITROGEN, BLOOD 100 mg/dL (7-18)
[2018-05-23 17:51] LABS: APPEARANCE,URINE CLEAR (CLEAR); BILIRUBIN,URINE NEGATIVE (NEGATIVE); BLOOD, URINE NEGATIVE (NEGATIVE); COLOR,URINE YELLOW (YELLOW); LEUKOCYTE ESTERASE ,URINE NEGATIVE (NEGATIVE); NITRITE, URINE NEGATIVE (NEGATIVE); UGLUCOSE NEGATIVE (NEGATIVE)
--- NOTE | 2018-05-23 18:10 | NUR ---
PT. RESTING IN BED, VSS. HOB ELEVATED. SAFETY PRECAUTIONS IN PLACE. WILL CONTINUE TO MONITOR.
--- NOTE | 2018-05-23 18:30 | NUR ---
TELE CHARGE WILL CALL ER BACK AFTER MOVING BEDS FOR THIS PT'S ADMISSION
[2018-05-23] MEDS ORDERED: ONDANSETRON 4 MG/2 ML VIAL IM/IVP PRN (18:35)
[2018-05-23] MEDS ORDERED: MORPHINE SULFATE 2 MG/ML SYR IVP PRN (18:35)
[2018-05-23] MEDS ORDERED: HYDROcodone/APAP 5/325 MG 1 TAB TAB PO PRN (18:35)
[2018-05-23] MEDS ORDERED: LORazepam 2 MG/ML VIAL IM/IVP PRN (18:35)
[2018-05-23] MEDS ORDERED: DOCUSATE 100 MG/10 ML UDC PO PRN (18:35)
[2018-05-23] MEDS ORDERED: ACETAMINOPHEN 325 MG TAB PO PRN (18:35)
--- NOTE | 2018-05-23 19:03 | NUR ---
PT TAKEN TO TELE FLOOR BY LIZA CURRY, EMT ANGELA, AND RT
--- NOTE | 2018-05-23 19:10 | NUR ---
Patient will be admitted to care of . Admited to [g ED.ADMITTELE . Will go to room 123B . Belongings list completed. Report to LIZA BONILLA .
[2018-05-23 19:19] LABS: MAGNESIUM 3.8 mg/dL (1.8-2.4); PHOSPHORUS 6.2 mg/dL (2.5-4.9)
[2018-05-23 19:20] VITALS: BP 120/61
--- NOTE | 2018-05-23 19:20 | NUR ---
PT TRANSFERRED TO [facility] UNIT VIA GURNEY ESCORTED BY CURED MEAT PACKING SUPERVISOR AND EMT AND RT. PT TRANSFERRED TO 123 BED B. PT IS AOX1 WITH HX OF APHASIA AND DEMENTIA. PT IS ON A TRACH TO VENT, WITH VENT SETTINGS FOLLOWS FIO2 28 FLOW IS 45 PEEP 5 PMAX 50 VT 450 AND RR 12. PT IS STATING 100% ON THESE SETTINGS. LUNG SOUNDS ARE NOTED WITH RHONCI INSPIRATORY AND EXPIRATORY. PT STOMACH A LITTLE FIRM AND DISTENDED, WITH HYPOACTIVE B/S NOTED. PT HAS A GTUBE INTACT POSITIVE FOR PLACEMENT AND FLUSHED PATENT. PT ALSO INCONTINENT OF B&B. PT HAD URINATED AND HAD 1 EPISODE OF LARGE BM. PT HAS AN OPEN AREA ON SKIN ABOVE PENIS AND A STAGE 2 SACRAL WOUND. RESIDENT MD AWARE, AND WOUND CONSULTS ORDERED. PT TURNED CHANGED AND REPOSITIONED. ALL FALLS, ASPIRATIONS, AND SEIZURE PRECAUTIONS IN PLACE. 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 V/S FOLLOWS T 97.5 P 85 R 12 B/P 120/6102 100% ON VENT SETTINGS. PT HAS NO S/S OF PAIN OR DISTRESS NOTED. ORAL CARE ATTEMPTED BUT PT REFUSED TO OPEN MOUTH.
[2018-05-23 19:38] LABS: PROTHROMBIN TIME 10.4 secs (10.8-13.4)
[2018-05-23] MEDS ORDERED: DEXTROSE 50% 50 ML SYR IVP PRN (20:20)
[2018-05-23] MEDS ORDERED: INSULIN LISPRO SLIDING SCALE 100 UNITS/ML VIAL SUBQ PRN (20:20)
[2018-05-23] MEDS: BLOOD GLUCOSE MONITORING 1 DEV DEV FS SCH (21:00)
--- NOTE | 2018-05-23 22:00 | NUR ---
PT TURNED , CHANGED AND REPOSITIONED. PT B AND B MOVEMENT X1. PT SUCTIONED AND MOUTH CARE PROVIDED. ALL FALLS, SEIZURE AND ASPIRATION PRECAUTIONS IN PLACE.
[2018-05-23] MEDS ORDERED: ALBUTEROL SULFATE/IPRATROPIU 3 ML SOL IH PRN (22:50)
[2018-05-24] VITALS: BP 117/62
[2018-05-24] MEDS ORDERED: DEXT 5% / NACL 0.45% 500 ML IV SCH (00:45)
--- NOTE | 2018-05-24 01:00 | NUR ---
PT HAS ALL FALLS, SEIZURE AND ASPIRATION PRECAUTIONS IN PLACE. V/S FOLLOWS T 97.4 P 82 R 12 B/P 117/62 02 100% WITH ALL CURRENT VENT SETTINGS. PT TURNED AND REPOSITIONED , HE HAD X1 EPISODE OF INCONTINENCE WITH B& B.
[2018-05-24] MEDS ORDERED: Z-GUARD PASTE TP PRN (01:05)
[2018-05-24] MEDS ORDERED: CALCIUM ACETATE 667 MG TAB GT ONE (01:10)
--- NOTE | 2018-05-24 01:15 | NUR ---
RESPIRATORY AT BEDSIDE EVALUATING PT.
--- NOTE | 2018-05-24 01:30 | NUR ---
SPOKE WITH RAILROAD COOK, MEDICATION UNAVAILABLE
--- NOTE | 2018-05-24 02:30 | NUR ---
CRITICAL LAB VALUE REPORTED BY LAB OF INCREASED TROPONIN LEVEL 0.141, RESIDENT MD, DR. JAMISON MADE AWARE.
[2018-05-24 04:00] VITALS: BP 109/56
[2018-05-24] MEDS: ALBUTEROL SULFATE/IPRATROPIU 3 ML SOL IH SCH ×3 (06:29→19:31)
--- NOTE | 2018-05-24 06:29 | NUR ---
REC'D PT ON CARESCAPE VENT SETTINGS AC 12 450 PEEP 5 FIO2 28% ALARMS ON AND AUDIBLE AMBU BAG AT SIDE OF VENT AND VENT IS PLUGGED INTO RED OUTLET, I\L TX GIVEN WITH DUONEB 3ML WITH NO ADVERSE REACTION POST TX B\S AER DIMINISHED BILATERALLY,, SXN PT SMALL AMT OF THIN WHITE SECRETIONS, PT IS TRACH WITH PORTEX 8 AND SKIN INTEGRITY IS INTACT PT IS RESTING
--- NOTE | 2018-05-24 07:15 | NUR ---
ENDORSED CARE TO BROCK RN DAYSHIFT NURSE AT BEDSIDE FOR CONTINUITY OF CARE, PT IN STABLE CONDITION.
--- NOTE | 2018-05-24 07:16 | NUR ---
RECEIVED REPORT FROM DIRECTOR COLLEGE NURSE. PT IN STABLE CONDITION. RESPIRATIONS EVEN AND UNLABORED, VENT TO TRACH. IV INTACT AND PATENT. SAFETY MEASURES IN PLACE. BED ALARM SET. BED IN LOW POSITION. CALL LIGHT AT BEDSIDE. WILL CONTINUE TO MONITOR.
[2018-05-24 08:00] VITALS: BP 112/56
--- NOTE | 2018-05-24 08:14 | NUR ---
PATIENT HAS BEEN SCREENED AND CATEGORIZED HIGH NUTRITION RISK. PATIENT WILL BE SEEN WITHIN 1-2 DAYS OF ADMISSION. 05/24/18-05/25/[address]
[2018-05-24 08:16] LABS: BASOPHILS # (AUTO) 0.1 K/uL (0.00-0.22); BASOPHILS % (AUTO) 0.7 % (0.0-2.0); EOSINOPHILS # (AUTO) 0.9 K/uL (0-0.4); EOSINOPHILS % (AUTO) 12.2 % (0.0-4.0); HEMATOCRIT 23.8 % (36-52); HEMOGLOBIN 7.6 g/dL (12.0-18.0); LYMPHOCYTES # (AUTO) 1.2 K/uL (2.0-11.5); LYMPHOCYTES % (AUTO) 15.4 % (20.5-51.1); MEAN CORPUSCULAR HEMOGLOBIN 30 pg (27-31); MEAN CORPUSCULAR HGB CONC 32 g/dL (33-37); MEAN CORPUSCULAR VOLUME 94.2 fL (80-94); MONOCYTES # (AUTO) 0.9 K/uL (0.8-1.0); MONOCYTES % (AUTO) 12.4 % (1.7-9.3); NEUTROPHILS # (AUTO) 4.5 K/uL (1.8-7.7); NEUTROPHILS % (AUTO) 59.3 % (42.2-75.2); PLATELET COUNT (AUTO) 116 K/uL (140-450); RED BLOOD CELL COUNT(AUTO) 2.53 MIL/uL (4.20-6.10); RED CELL DISTRIBUTION WIDTH 19.7 % (11.6-13.7); WHITE BLOOD COUNT (AUTO) 7.6 K/uL (4.8-10.8)
[2018-05-24] MEDS: BLOOD GLUCOSE MONITORING 1 DEV DEV FS SCH ×4 (08:24→21:00)
[2018-05-24 08:45] LABS: MAGNESIUM 3.5 mg/dL (1.8-2.4); PHOSPHORUS 5.2 mg/dL (2.5-4.9)
[2018-05-24 08:47] LABS: ANION GAP 8.4 (8-16); CARBON DIOXIDE 29.9 mmol/L (21-32); CHLORIDE 106 mmol/L (98-107); CREATININE 2.7 mg/dL (0.7-1.3); GLUCOSE 131 mg/dL (74-106); POTASSIUM 4.3 mmol/L (3.5-5.1); SODIUM SERUM 140 mmol/L (136-145)
[2018-05-24 08:50] LABS: UREA NITROGEN, BLOOD 94 mg/dL (7-18)
[2018-05-24] MEDS ORDERED: DOCUSATE 100 MG/10 ML UDC GT PRN (08:52)
[2018-05-24 08:55] LABS: CHOL/HDL RATIO 3.2 (1-4.5)
[2018-05-24] MEDS: MIDODRINE 5 MG TAB GT SCH (09:53)
[2018-05-24] MEDS: ASCORBIC ACID 500 MG/5 ML ORASYR GT SCH (09:54)
[2018-05-24] MEDS: levETIRAcetam 100 MG/ML ORASYR GT SCH ×2 (09:54→22:00)
[2018-05-24] MEDS: FUROSEMIDE 20 MG TAB GT SCH (09:54)
[2018-05-24] MEDS: DOCUSATE 100 MG/10 ML UDC GT SCH (09:54)
[2018-05-24] MEDS: ASPIRIN 81 MG TAB.CHEW GT SCH (09:55)
[2018-05-24] MEDS: INSULIN LANTUS 100 UNITS/ML 10 ML VIAL SUBQ SCH (09:57)
--- NOTE | 2018-05-24 10:50 | NUR ---
ASSISTED WITH CHANGING AND CLEANING. PT TOLERATED WELL. BED IN LOW POSITION. BED ALARM SET. CALL LIGHT AT BEDSIDE. WILL CONTINUE TO MONITOR.
[2018-05-24 12:00] VITALS: BP 110/60
[2018-05-24] MEDS: NACL 0.9% 1,000 ML IV SCH (12:30)
--- NOTE | 2018-05-24 13:03 | NUR ---
05/24/18 RD INITIAL ASSESSMENT COMPLETED PLEASE REFER TO NUTRITION ASSESSMENT UNDER CARE ACTIVITY FOR ESTIMATED NUTRITIONAL NEEDS. 1. RECOMMEND TUBE FEED NEPRO W/CARBSTEADY @ 40 ML/HR X 24 HRS. - THIS WILL PROVIDE 1728 KCALS AND 77 G PROTEIN, THIS WILL MEET 100% OF ESTIMATED ENERGY AND PROTEIN NEEDS. 2. RECOMMEND FLUSH 165 ML Q4H 3. RECOMMEND SANDY BID 4. RD TO FOLLOW-UP 2-3 DAYS, HIGH RISK HOLLEY CARTER, RD
--- NOTE | 2018-05-24 13:31 | NUR ---
Area Sales Manager Note: Per Stacia from [facility] , patient is on a 7 day bed hold and his son Ancelmo Johnson is his health care decision maker. Stacia stated patient does not have an existing Advance Directive. I called and spoke with Ancelmo Johnson , he reported he would like patient to return to [facility] upon discharge.
[2018-05-24] MEDS: Z-GUARD PASTE TP SCH (13:39)
--- NOTE | 2018-05-24 14:34 | NUR ---
ASSISTED WITH CHANGING AND CLEANING. SUCTIONED, PT TOLERATED WELL. BED IN LOW POSITION. BED ALARM SET. CALL LIGHT AT BEDSIDE. WILL CONTINUE TO MONITOR.
[2018-05-24 16:00] VITALS: BP 117/54
--- NOTE | 2018-05-24 19:30 | NUR ---
GAVE REPORT TO SELLING MANAGER NURSE FOR CONTINUITY OF CARE. PT IN STABLE CONDITION.
[2018-05-24 20:10] VITALS: BP 111/63
--- NOTE | 2018-05-24 20:10 | NUR ---
SEEN PT APPEARS ASLEEP BUT AROUSABLE TO MOVEMENT AND LIGHT PAIN. INITIAL ASSESSMENT DONE. VITAL SIGNS CHECKED AND WNL. NO DISCOMFORT OBSERVED. SAFETY REINFORCED. PT REPOSITIONED FOR COMFORT. PT IS ON CONTACT ISOLATION. WILL CONTINUE TO MONITOR.
[2018-05-24] MEDS: ATORVASTATIN 20 MG TAB GT SCH (22:00)
--- NOTE | 2018-05-24 22:00 | NUR ---
BLOOD SUGAR CHECKED:134. NO COVERAGE NEEDED. GTUBE CHECKED, NO RESIDUAL NOTED. DUE MEDICATIONS GIVEN ORDERED. PT'S FEEDING BAG CHANGED TO NEPRO PER ORDER. PT REPOSITIONED FOR COMFORT. WILL CONTINUE TO MONITOR.
[2018-05-25 00:10] VITALS: BP 110/53
--- NOTE | 2018-05-25 00:10 | NUR ---
BLOOD DRAWN FROM PICC FOR TROPONIN LEVEL. VITAL SIGNS CHECKED. PT SUCTIONED W/ CLEAR THICK OUTPUT. ORAL CARE RENDERED. PT REPOSITIONED FOR COMFORT.
[2018-05-25] MEDS: Z-GUARD PASTE TP SCH ×2 (01:00→13:00)
--- NOTE | 2018-05-25 01:11 | NUR ---
SPOKE TO MARQUITA FROM LAB REGARDING PT'S TROP LEVEL=[phone]. WILL NOTIFY MD RESIDENT.
[2018-05-25 04:00] VITALS: BP 113/57
--- NOTE | 2018-05-25 04:00 | NUR ---
NO RESIDUAL NOTED ON GTUBE FOLLOWED BY 20ML WATER FLUSH. VITAL SIGNS CHECKED. PT SUCTIONED W/ THICK, WHITISH PHLEGM. CLEAR, THICK PHLEGM COMING OUT FROM TRACHE SITE. SUCTION IT. ORAL CARE RENDERED. PT REPOSITIONED COMFORTABLY. WILL CONTINUE TO MONITOR.
[2018-05-25] MEDS: BLOOD GLUCOSE MONITORING 1 DEV DEV FS SCH ×4 (06:44→21:40)
[2018-05-25] MEDS: ALBUTEROL SULFATE/IPRATROPIU 3 ML SOL IH SCH ×3 (06:50→18:50)
--- NOTE | 2018-05-25 06:50 | NUR ---
RECEIVED PT ON CARESCAPE VENT. ON DOCUMENTED SETTINGS, ALARMS ARE ON AND AUDIBLE, PTS TRACH PORTEX 8 IS SECURE, PT IN HF ASLEEP BS DIMINISHED HHN GIVEN I\L WITH 3 MG DUONEB I\ SX SMALL WHITE SECRETIONS, BMV HOB, VENT PLUGGED INTO RED OUTLET, CONT. POX IN PLACE
--- NOTE | 2018-05-25 07:21 | NUR ---
RECEIVED REPORT FROM BRIDGE RIGGER NURSE. PT IN STABLE CONDITION. RESPIRATIONS EVEN AND UNLABORED, VENT TO TRACH. IV INTACT AND PATENT. SAFETY MEASURES IN PLACE. BED ALARM SET. BED IN LOW POSITION. CALL LIGHT AT BEDSIDE. WILL CONTINUE TO MONITOR.
[2018-05-25 07:27] LABS: BASOPHILS # (AUTO) 0.1 K/uL (0.00-0.22); BASOPHILS % (AUTO) 0.9 % (0.0-2.0); EOSINOPHILS # (AUTO) 0.9 K/uL (0-0.4); EOSINOPHILS % (AUTO) 12.5 % (0.0-4.0); HEMATOCRIT 23.4 % (36-52); HEMOGLOBIN 7.5 g/dL (12.0-18.0); LYMPHOCYTES # (AUTO) 1.2 K/uL (2.0-11.5); LYMPHOCYTES % (AUTO) 16.3 % (20.5-51.1); MEAN CORPUSCULAR HEMOGLOBIN 30 pg (27-31); MEAN CORPUSCULAR HGB CONC 32 g/dL (33-37); MEAN CORPUSCULAR VOLUME 94.4 fL (80-94); MONOCYTES # (AUTO) 0.8 K/uL (0.8-1.0); MONOCYTES % (AUTO) 11.6 % (1.7-9.3); NEUTROPHILS # (AUTO) 4.3 K/uL (1.8-7.7); NEUTROPHILS % (AUTO) 58.7 % (42.2-75.2); PLATELET COUNT (AUTO) 120 K/uL (140-450); RED BLOOD CELL COUNT(AUTO) 2.48 MIL/uL (4.20-6.10); RED CELL DISTRIBUTION WIDTH 20.2 % (11.6-13.7); WHITE BLOOD COUNT (AUTO) 7.3 K/uL (4.8-10.8)
[2018-05-25 07:43] LABS: ANION GAP 10.8 (8-16); CHLORIDE 105 mmol/L (98-107); CREATININE 2.5 mg/dL (0.7-1.3); GLUCOSE 150 mg/dL (74-106); POTASSIUM 3.8 mmol/L (3.5-5.1); SODIUM SERUM 141 mmol/L (136-145)
[2018-05-25 08:00] VITALS: BP 111/49
[2018-05-25 08:38] LABS: UREA NITROGEN, BLOOD 85 mg/dL (7-18)
[2018-05-25] MEDS ORDERED: FUROSEMIDE 20 MG/2 ML VIAL IVP SCH (09:00)
[2018-05-25] MEDS: ASPIRIN 81 MG TAB.CHEW GT SCH (09:40)
[2018-05-25] MEDS: FUROSEMIDE 20 MG TAB GT SCH (09:40)
[2018-05-25] MEDS: MIDODRINE 5 MG TAB GT SCH (09:41)
[2018-05-25] MEDS: levETIRAcetam 100 MG/ML ORASYR GT SCH ×2 (09:41→21:33)
[2018-05-25] MEDS: DOCUSATE 100 MG/10 ML UDC GT SCH (09:41)
[2018-05-25] MEDS: ASCORBIC ACID 500 MG/5 ML ORASYR GT SCH (09:41)
[2018-05-25] MEDS: INSULIN LANTUS 100 UNITS/ML 10 ML VIAL SUBQ SCH (09:43)
--- NOTE | 2018-05-25 09:46 | NUR ---
PT HAS LASIX IV AND GT ORDERED. CLARIFIED ORDER WITH , PER IT IS OK TO GIVE BOTH ROUTES OF LASIX.
--- NOTE | 2018-05-25 09:58 | NUR ---
ADMINISTERED MORNING MEDS TO PT. PT TOLERATED MEDS WELL. NO RISIDUALS NOTED FOR G-TUBE. PT LEFT IN STABLE CONDITION. ORAL CARE ALSO DONE. CALL LIGHT WITHIN REACH, BED IN LOW POSITION. WILL ROUND FREQUENTLY ON PT.
[2018-05-25] MEDS ORDERED: FUROSEMIDE 40 MG/5 ML ORAL SOL UDC GT SCH (10:21)
--- NOTE | 2018-05-25 11:56 | NUR ---
PT SLEEPING IN BED. NO SIGNS OF DISTRESS OR PAIN NOTED. WILL CONTINUE TO ROUND FREQUENTLY.
[2018-05-25 12:00] VITALS: BP 112/58
[2018-05-25] MEDS: NACL 0.9% 1,000 ML IV SCH (12:18)
--- NOTE | 2018-05-25 12:47 | NUR ---
WOUND CARE EVALUATION NOTE: REASON FOR EVALUATION: SACRAL WOUND SKIN ASSESSMENT DONE WITH PRIMARY RN ON THIS 83 Y/O MALE PT ADMITTED FROM SNF TO [facility] WITH INITIAL DX OF ELEVATED TROP. PAST MEDICAL HX INCLUDES HTN, DM, CVA AND CANCER AND PRESSURE INJURY. ALL ABOVE INFORMATION OBTAINED FROM ADMISSION H&P.PT. IS NON-VERBAL, TRACH TO VENT. SKIN IS WARM AND DRY, BLE NO HAIR GROWTH, NO EDEMA TO BLE. BILATERAL DORSAL PEDAL PULSES PRESENT AND NORMAL. CAPILLARY REFILLED < 2 SEC. INCONTINENT OF BOWEL AND BLADDER. PLAN OF CARE DISCUSSED WITH PRIMARY RN. CLARIFICATION: NO ACTIVE OPEN WOUNDS TO SACRALCOCCYX, HX OF PRESSURE INJURY STAGE 2 TO LEFT INNER BUTTOCK ON PREVIOUS ADMISSION INTEGUMENTARY: -TRACH AND GT PER-STOMA SKIN INTACT -MULTIPLE OLD HEALED SCAR TO ABDOMINAL AND RIGHT MEDIAL LEG, INNER BUTTOCK AREAS -INCONTINENT ASSOCIATE DERMATITIS (IAD) TO ON ANTERIOR BASE OF PENIS SHAFT 3X2X0.1 CM, AREA MOIST SCATTERED OF YELLOW TISSUE AND TOMMY WOUND SKIN INTACT. -BLANCHABLE REDNESS TO SACROCOCCYX RECOMMENDATIONS: -KEEP SKIN DRY AND CLEAN AT ALL TIMES, PLEASE CHECK Q2H AND PRN FOR INCONTINENCY OF BOWEL AND BLADDER. PLEASE CLEANS AND DRY PENIS SKIN FOLDS THOROUGHLY -CLEAN BASE OF PENIS AREA WITH NS, PAT DRY, APPLY CUTTED THERAHONEY DRESSING SHEET AND COVER WITH 2X2 DRY DRESSING, CHANGE QD AND PRN IF SOILING. -OFFLOAD BILATERAL HEELS BY PLACING PILLOWS UNDER CALVES UNLESS OTHERWISE CONTRAINDICATED -PRESSURE REDISTRIBUTION SURFACE THERAPY -TURN AND REPOSITION Q2H, OFFLOAD SACRALCOCCYX BY TURNING RIGHT AND LEFT -CONTINUE TO FOLLOW RD RECOMMENDATIONS ALL ABOVE RECOMMENDATIONS DISCUSSED WITH PRIMARY RN WILL FOLLOW UP PT Q7-10 DAYS. PLEASE CONTACT WOUND CARE NURSE FOR ANY QUESTION AND CHANGE OF WOUND CONDITION.
--- NOTE | 2018-05-25 13:23 | NUR ---
PER WOUND NURSE UMER, NO Z-GUARD SHOULD BE APPLIED TO PENIAL ULCER. WILL FOLLOW WOUND CARE NOTES FOR DRESSING APPLICATION.
--- NOTE | 2018-05-25 15:42 | NUR ---
WOUND CARE DONE ON PT PER UMER REIMBURSEMENT DIRECTOR'S RECOMMENDATION. ALL OTHER NEEDS MET AT THIS TIME.
[2018-05-25 16:00] VITALS: BP 111/48
[2018-05-25] MEDS: THERAHONEY WOUND DRESSING TP SCH (18:17)
--- NOTE | 2018-05-25 19:00 | NUR ---
Received pt stable on vent support at documented settings, no resp distress or SOB noted at this time, Portex 8 trach secured/patent/midline, alarms set and audible, vent plugged into red outlet, ambu bag at bedside, cont pulse ox on, will cont to monitor.
--- NOTE | 2018-05-25 19:40 | NUR ---
RECEIVED REPORT FROM DAY SHIFT NURSE. PT SLEEPING. TRACH TO VENT. NO S/S OF PAIN OR SOB. PT HAS PICC LINE TO LEFT UPPER ARM, 2 LUMENS. PT HAS G-TUBE WITH FEEDING, NEPRO AT 40 ML/HR, INFUSING WELL. SAFETY, SEIZURE AND ASPIRATION PRECAUTIONS IN PLACE.
--- NOTE | 2018-05-25 19:47 | NUR ---
ENDORSED PT TO [employer] DEPARTMENT CHAIR FOR CONTINUITY OF CARE. PT IN STABLE CONDITION.
[2018-05-25 20:00] VITALS: BP 121/55
--- NOTE | 2018-05-25 20:30 | NUR ---
PT CLEANED AND CHANGED. TURNED AND REPOSITIONED. NO S/S OF PAIN OR SOB. FALL, SEIZURE AND ASPIRATION PRECAUTION IN PLACE.
[2018-05-25] MEDS: ATORVASTATIN 20 MG TAB GT SCH (21:32)
--- NOTE | 2018-05-25 21:33 | NUR ---
CHECKED G-TUBE RESIDUAL 0 ML. DUE MEDS GIVEN. PT TOLERATED WELL. CHECKED BLOOD SUGAR 127. NO INSULIN COVERAGE NEEDED.
--- NOTE | 2018-05-25 22:35 | NUR ---
CHECKED G-TUBE RESIDUAL 0 ML. HUNG NEW BOTTLE OF NEPRO AT 40 ML/HR. ASPIRATION PRECAUTION IN PLACE.
[2018-05-26] VITALS: BP 112/60
--- NOTE | 2018-05-26 00:50 | NUR ---
PT IN BED WITH EYES CLOSED. NO S/S OF RESP DISTRESS. NO S/S OF PAIN. PT TOLERATING FEEDING WELL.
--- NOTE | 2018-05-26 03:30 | NUR ---
PT SLEEPING. NO S/S OF PAIN OR SOB. PT KEPT CLEAN, DRY AND COMFORTABLE. PT TOLERATING FEEDING WELL.
[2018-05-26 04:00] VITALS: BP 112/53
--- NOTE | 2018-05-26 05:23 | NUR ---
PT CLEANED AND CHANGED. PENILE DRESSING CHANGED. PT KEPT CLEAN, DRY AND COMFORTABLE. ASPIRATION, FALL AND SEIZURE PRECAUTIONS IN PLACE.
[2018-05-26] MEDS: BLOOD GLUCOSE MONITORING 1 DEV DEV FS SCH ×3 (06:04→17:17)
[2018-05-26 06:24] LABS: BASOPHILS % (AUTO) 0.5 % (0.0-2.0); EOSINOPHILS # (AUTO) 0.9 K/uL (0-0.4); EOSINOPHILS % (AUTO) 10.1 % (0.0-4.0); HEMOGLOBIN 7.7 g/dL (12.0-18.0); LYMPHOCYTES # (AUTO) 1.4 K/uL (2.0-11.5); LYMPHOCYTES % (AUTO) 15.7 % (20.5-51.1); MEAN CORPUSCULAR HEMOGLOBIN 30 pg (27-31); MEAN CORPUSCULAR HGB CONC 32 g/dL (33-37); MEAN CORPUSCULAR VOLUME 94.7 fL (80-94); MONOCYTES # (AUTO) 0.9 K/uL (0.8-1.0); MONOCYTES % (AUTO) 9.8 % (1.7-9.3); NEUTROPHILS # (AUTO) 5.8 K/uL (1.8-7.7); NEUTROPHILS % (AUTO) 63.9 % (42.2-75.2); PLATELET COUNT (AUTO) 120 K/uL (140-450); RED BLOOD CELL COUNT(AUTO) 2.53 MIL/uL (4.20-6.10); RED CELL DISTRIBUTION WIDTH 19.5 % (11.6-13.7); WHITE BLOOD COUNT (AUTO) 9.1 K/uL (4.8-10.8)
[2018-05-26 06:42] LABS: ANION GAP 12.7 (8-16); CARBON DIOXIDE 29.3 mmol/L (21-32); CHLORIDE 104 mmol/L (98-107); CREATININE 2.4 mg/dL (0.7-1.3); GLUCOSE 145 mg/dL (74-106); SODIUM SERUM 143 mmol/L (136-145)
--- NOTE | 2018-05-26 06:43 | NUR ---
CHECKED BLOOD SUGAR 139. NO INSULIN COVERAGE NEEDED.
[2018-05-26 06:51] LABS: UREA NITROGEN, BLOOD 79 mg/dL (7-18)
--- NOTE | 2018-05-26 06:52 | NUR ---
RECEIVED CRITICAL LAB VALUE BUN 79. DR. BHAKTA MADE AWARE. LAB VALUE TRENDING DOWN.
[2018-05-26] MEDS: ALBUTEROL SULFATE/IPRATROPIU 3 ML SOL IH SCH ×2 (07:01→14:36)
--- NOTE | 2018-05-26 07:02 | NUR ---
RECEIVED ON A Jackbox GamesSCAPE R860 VENTILATOR PLUGGED INTO RED OUTLET TOLERATING WELL WITHOUT INCIDENT TO A PORTEX DCT #8 AIRWAY SECURED WITH A KELIN TRACH TIE CUFF PRESSURE CHECKED NOTED MARK NUNEZ-7 CONTINUOS PULSE OXIMETER AT BEDSIDE ON AND FUNCTIONING WELL LOW SATURATION ALARM SET AT 92% AMBU BAG NOTED AT HOB LOC QUIET RESTING WELL WITHOUT EVIDENCE OF PULMONARY DISTRESS NOTED GOOD CHEST RISE AIRWAY PATENT
--- NOTE | 2018-05-26 07:18 | NUR ---
ENDORSED PT TO DAY SHIFT NURSE. PT IN STABLE CONDITION.
--- NOTE | 2018-05-26 07:33 | NUR ---
RECEIVED REPORT FROM CLEANERS NURSE. PT IN STABLE CONDITION. RESPIRATIONS EVEN AND UNLABORED, VENT TO TRACH. IV INTACT AND PATENT. SAFETY MEASURES IN PLACE. BED ALARM SET. BED IN LOW POSITION. CALL LIGHT AT BEDSIDE. WILL CONTINUE TO MONITOR.
[2018-05-26 08:00] VITALS: BP 117/57
--- NOTE | 2018-05-26 09:43 | NUR ---
NO APPARENT SOB NOTED GOOD CHEST RISE
--- NOTE | 2018-05-26 09:45 | NUR ---
PT SLEEPING IN BED. NO SIGNS OF DISTRESS OR PAIN NOTED. WILL CONTINUE TO ROUND FREQUENTLY.
[2018-05-26] MEDS: INSULIN LANTUS 100 UNITS/ML 10 ML VIAL SUBQ SCH (09:56)
[2018-05-26] MEDS: ASPIRIN 81 MG TAB.CHEW GT SCH (09:57)
[2018-05-26] MEDS: DOCUSATE 100 MG/10 ML UDC GT SCH (09:57)
[2018-05-26] MEDS: MIDODRINE 5 MG TAB GT SCH (09:57)
[2018-05-26] MEDS: ASCORBIC ACID 500 MG/5 ML ORASYR GT SCH (09:58)
[2018-05-26] MEDS: levETIRAcetam 100 MG/ML ORASYR GT SCH (09:58)
--- NOTE | 2018-05-26 11:30 | NUR ---
RESTING COMFORTABLY NO DISTRESS NOTED GOOD CHEST RISE DEEP TRACHEAL SUCTION FOR LARGE THICK YELLOW SECRETIONS AIRWAY PATENT
[2018-05-26 12:00] VITALS: BP 125/58
[2018-05-26] MEDS ORDERED: FAMO-90 GT/PO (12:16)
[2018-05-26] MEDS: NACL 0.9% 1,000 ML IV SCH (12:30)
--- NOTE | 2018-05-26 13:01 | NUR ---
CALLED [facility] AND SPOKE WITH SHRAVAN IN ADMISSIONS. SHRAVAN STATED THAT THEY ARE UNABLE TO ACCEPT PATIENT BACK WITHOUT THE FINAL SPUTUM CULTURE REPORT WHICH IS ONLY A PRELIMINARY AT THIS TIME. DR GODDARD INFORMED THAT PATIENT CANNOT TRANSFER BACK UNTIL THE FINAL CULTURE REPORT IS OBTAINED. ALL OTHER CLINICAL INFORMATION FAXED TO [facility] – [place] FOR REVIEW.
[2018-05-26] MEDS: THERAHONEY WOUND DRESSING TP SCH (13:31)
--- NOTE | 2018-05-26 13:57 | NUR ---
PT IN BED SLEEPING WITH NO SIGNS OF DISTRESS. BED ALARM ACTIVATED. CALL LIGHT WITHIN REACH. WILL ROUND FREQUENTLY.
--- NOTE | 2018-05-26 14:00 | NUR ---
CERTIFIED WELDER AT BEDSIDE FOR PHYSICAL HYGIENE AND REPOSITION HOSPICE ADMINISTRATOR TI ATTEMPT PATIENT AND VENTILATOR ASSESSMENT ALONG HHN THERAPY AT A LATER TIME
--- NOTE | 2018-05-26 14:36 | NUR ---
STABLE GOOD CHEST RISE DEEP TRACHEAL SUCTION FOR LARGE THICK YELLOW SECRETIONS AIRWAY PATENT
--- NOTE | 2018-05-26 15:47 | NUR ---
PT STABLE AT THIS TIME. WILL CONTINUE TO ROUND FREQUENTLY.
--- NOTE | 2018-05-26 15:50 | NUR ---
NO SOB NOTED GOOD CHEST RISE DAUGHTER AT BEDSIDE
[2018-05-26 16:00] VITALS: BP 124/54
[2018-05-26] MEDS ORDERED: POTASSIUM CHLORIDE 20% 40 MEQ/15 ML UDC PO SCH (16:00)
--- NOTE | 2018-05-26 18:22 | NUR ---
CALLED [facility] AT AND GAVE REPORT TO KIA RAMOS RN TAKING OVER MR ARANDA'S CARE.
--- NOTE | 2018-05-26 19:00 | NUR ---
PT TRANSFERED TO [facility] FOR CONTINUITY OF CARE. PT IN STABLE CONDITION AT THIS TIME. PT TRANSFERED VIA [facility]. ALL PT BELONGINGS TAKEN WITH PT. PT UNABLE TO SIGN DISCHARGE PAPERWORK. PICC LINE LEFT IN PLACE. WRIST BAND REMOVED. G-TUBE INTACT. CALLED SON JANETTE TO NOTIFY OF DAD'S TRANSFER. SON DID NOT ANSWER SO A MESSAGE WAS LEFT AT HIS NUMBER .
--- NOTE | 2018-05-26 19:02 | NUR ---
PATIENT PREPARING FOR DISCHARGE AT THIS TIME.
[2018-06-09] MEDS ORDERED: SODIUM BICARBONATE 8.4% 50 MEQ in NACL 0.9% 1,000 ML IV SCH (20:25)
== END 2018-05-26 19:00 | DRG 190 ==
LOC: MED 14:35 → MTU 18:34
PROVIDERS: ADMIT General Practice; ATTEND General Practice
PROC: 5A1945Z Respiratory Ventilation, 24-96 Consecutive Hours (ICD-10-PCS; principal; 2018-05-23)
DX: I21.A1 Myocardial infarction type 2 (principal); J96.20 Acute and chronic respiratory failure, unspecified whether with hypoxia or hypercapnia; N17.0 Acute kidney failure with tubular necrosis; I50.43 Acute on chronic combined systolic (congestive) and diastolic (congestive) heart failure; L89.152 Pressure ulcer of sacral region, stage 2; E44.0 Moderate protein-calorie malnutrition; Z93.0 Tracheostomy status; E11.22 Type 2 diabetes mellitus with diabetic chronic kidney disease; R53.2 Functional quadriplegia; I69.951 Hemiplegia and hemiparesis following unspecified cerebrovascular disease affecting right dominant side; I13.0 Hypertensive heart and chronic kidney disease with heart failure and stage 1 through stage 4 chronic kidney disease, or unspecified chronic kidney disease; I27.20 Pulmonary hypertension, unspecified; F03.90 Unspecified dementia, unspecified severity, without behavioral disturbance, psychotic disturbance, mood disturbance, and anxiety; N40.0 Benign prostatic hyperplasia without lower urinary tract symptoms; E83.41 Hypermagnesemia; E83.39 Other disorders of phosphorus metabolism; K21.9 Gastro-esophageal reflux disease without esophagitis; I25.10 Atherosclerotic heart disease of native coronary artery without angina pectoris; N18.3 Chronic kidney disease, stage 3 (moderate); K59.00 Constipation, unspecified; R13.10 Dysphagia, unspecified; I07.1 Rheumatic tricuspid insufficiency; D63.8 Anemia in other chronic diseases classified elsewhere; Z68.22 Body mass index [BMI] 22.0-22.9, adult; Z95.1 Presence of aortocoronary bypass graft; Z74.01 Bed confinement status; Z86.74 Personal history of sudden cardiac arrest; Z79.82 Long term (current) use of aspirin; Z79.899 Other long term (current) drug therapy; Z93.1 Gastrostomy status
CPT/HCPCS: 36415; 71045; 80048; 80053; 81003; 82150; 82550; 82948; 83036; 83540; 83605; 83690; 83735; 83880; 84100; 84484; 85025; 85610; 85730; 87040; 87070; 87081; 87086; 87186; 87205; 89220; 93005; 94003; 94640; 96360; 99285; J1644; J1815; J1940; J7030; J7620; Q0092

== ENCOUNTER 2018-06-09 10:07 | Inpatient (IN) | payer MEDICAID, MEDICARE ==
[2018-06-09] VITALS (18 sets, daily range): BP systolic 87–138; BP diastolic 48–78
[~2018-06-09] VITALS: Ht 167.6 cm; Wt 62.6 kg
[~2018-06-09 10:07] MED LIST changes: -ATOR40TA GT
--- NOTE | 2018-06-09 10:07 | NUR ---
PATIENT BIBA TO BED 10 AT THIS TIME. RT LAURA AT BEDSIDE.
--- NOTE | 2018-06-09 10:10 | NUR ---
PT. AR[place] VIA [place] [facility] [place] TO ABNORMAL LAB VALUES X YESTERDAY ELEVATED BUN, CREATININE , AND WBC. PT. BEING BAGGED UPON ARRIVAL BY ALS PERSONNEL , TRACHEOSTOMY IN PLACE, G TUBE PRESENT TO L SIDE OF ABD, PICC LINE PRESENT TO L UPPER ARM. GCS : 6. RR EVEN AND UNLABORED. PT WARM AND DRY TO TOUCH. 1+ EDEMA PITTING NOTED TO BILAT ANKLES. ABD ROUND AND SOFT. BS: [address]ITAL. PT UNABLE TO MOVE EXTREMITIES. SAFETY PRECAUTIONS IN PLACE, SEIZURE PRECAUTIONS IN PLACE. WILL CONTINUE TO MONITOR. ER MD MADE AWARE OF PATIENTS CONDITION. HOB ELEVATED. RT AT BEDSIDE. MED HX: CHRONIC RESP FAILURE, DYSPHAGIA, CEREBRAL INFARCTION, HEMIPLAGIA, HEART FAILURE, HTN, DM, CKD STAGE 3, GERD EPILEPSY, DEMENTIA, MUSCLE WEAKNESS GENERALIZED.
--- NOTE | 2018-06-09 10:11 | NUR ---
PT STARTED WITH SEIZURE ACTIVITY THAT LASTED 1MIN. ER MD MIRELES IN ROOM. ATIVAN 1MG VERBALLY ORDERED AT THIS TIME.
[2018-06-09] MEDS ORDERED: LORazepam 2 MG/ML VIAL ONE (10:22)
--- NOTE | 2018-06-09 10:24 | NUR ---
EKG PERFORMED AT BEDSIDE. PT COVERED IN GOWN DURING PROCEDURE.
--- NOTE | 2018-06-09 10:35 | NUR ---
LAB AT BEDSIDE AT THIS TIME
--- NOTE | 2018-06-09 10:36 | NUR ---
# 16 FR Couch catheter with 10 ml utilizing sterile technique. Immediate return of 5 ml urine noted. Bedside drainage bag placed below level of bladder. Pt tolerated procedure well .
[2018-06-09] MEDS ORDERED: LORazepam 2 MG/ML VIAL IVP ONE (10:45)
[2018-06-09] MEDS ORDERED: ACETAMINOPHEN 650 MG SUPP RC ONE (10:45)
--- NOTE | 2018-06-09 10:46 | NUR ---
INFLUENZA A AND B SPECIMEN COLLECTED AND GIVEN TO BLANCO ABBOTT TECH
[2018-06-09 11:04] LABS: HEMATOCRIT 25.8 % (36-52); HEMOGLOBIN 8.2 g/dL (12.0-18.0); MEAN CORPUSCULAR HEMOGLOBIN 29 pg (27-31); MEAN CORPUSCULAR HGB CONC 32 g/dL (33-37); MEAN CORPUSCULAR VOLUME 89.1 fL (80-94); PLATELET COUNT (AUTO) 161 K/uL (140-450); RED BLOOD CELL COUNT(AUTO) 2.89 MIL/uL (4.20-6.10); RED CELL DISTRIBUTION WIDTH 17.7 % (11.6-13.7)
--- NOTE | 2018-06-09 11:20 | NUR ---
URINE SAMPLE COLLECTED FROM [facility]. LAB CALLED FOR SPECIMEN LIQUID LOADER
[2018-06-09 11:23] LABS: LYMPHOCYTES % (MANUAL) 2 % (20-46); MONOCYTES % (MANUAL) 1 % (5-12)
--- NOTE | 2018-06-09 11:28 | NUR ---
PT. IN BED, VSS. HOB ELEVATED. SAFETY PRECAUTIONS IN PLACE, SEIZURE PRECAUTIONS IN PLACE. REPOSITIONED FOR COMFORT. WILL CONTINUE TO MONITOR.
[2018-06-09 11:37] LABS: ALBUMIN 2.1 g/dL (3.4-5.0); ANION GAP 26.9 (8-16); ASPARTATE AMINOTRANSFERASE 35 U/L (15-37); CHLORIDE 80 mmol/L (98-107); GLUCOSE 155 mg/dL (74-106); POTASSIUM 4.9 mmol/L (3.5-5.1); TOTAL BILIRUBIN 1.1 mg/dL (0.0-1.0)
[2018-06-09 11:38] LABS: CREATINE KINASE MB 1.6 ng/mL (0-3.6)
[2018-06-09 11:40] LABS: CREATININE 5.5 mg/dL (0.7-1.3); SODIUM SERUM 118 mmol/L (136-145); UREA NITROGEN, BLOOD 180 mg/dL (7-18)
[2018-06-09 11:47] LABS: APPEARANCE,URINE CLOUDY (CLEAR); BILIRUBIN,URINE NEGATIVE (NEGATIVE); BLOOD, URINE 3+ (NEGATIVE); COLOR,URINE YELLOW (YELLOW); LEUKOCYTE ESTERASE ,URINE 3+ (NEGATIVE); NITRITE, URINE NEGATIVE (NEGATIVE); UGLUCOSE NEGATIVE (NEGATIVE)
[2018-06-09 11:49] LABS: WBC,URINE TOO MANY TO COUNT /HPF (0-5)
[2018-06-09 11:50] LABS: RBC,URINE 50-80 /HPF (0-5)
[2018-06-09] MEDS ORDERED: ONDANSETRON 4 MG/2 ML VIAL IVP PRN (11:50)
[2018-06-09] MEDS ORDERED: ACETAMINOPHEN 325 MG TAB PO PRN (11:50)
[2018-06-09] MEDS ORDERED: NACL 0.9% 1,000 ML IV SCH (11:50)
--- NOTE | 2018-06-09 12:05 | NUR ---
B/P 95/48 ER MD MIRELES MADE AWARE
--- NOTE | 2018-06-09 12:53 | NUR ---
Patient will be admitted to care of DR. REYES . Admited to ICU . Will go to room 7. Belongings list completed. Report to LIZA NIEVES .
--- NOTE | 2018-06-09 13:08 | NUR ---
PT TRANSFERRED TO ICU 7 VIA AMBU BAG NO ILL EFFECTS NOTED PLACED ON VENT WITH SETTINGS CHARTED WILL CONTINUE TO MONITOR PT ON VENT
--- NOTE | 2018-06-09 13:10 | NUR ---
ADMITTED PT FROM ER BY GREG. PT DOES NOT OPEN EYES, UNABLE TO FOLLOW COMMANDS. GCS =6,WITHDRAW TO PAIN ONLY. BEDSIDE MONITOR SHOWING SR, TRACH TO VENT WITH SETTING FIO2=28%, TV 450, AC 12 PEEP 5. NO S/S OF RESPIRATORY DISTRESS NOTED. G-TUBE IN PLACE, F/C IN PLACE. OPEN WOUND TO PENILE SHAFT. GENERALIZED +2 PITTING EDEMA NOTED. PT UNABLE TO MOVE ALL HIS EXTREMITIES DUE TO HX CVA. MRSA NARES SWAP DONE, WILL CONTINUE TO MONITOR.
[2018-06-09 13:22] LABS: MAGNESIUM 3.2 mg/dL (1.8-2.4); PHOSPHORUS 4.4 mg/dL (2.5-4.9)
[2018-06-09] MEDS ORDERED: INSULIN LISPRO SLIDING SCALE 100 UNITS/ML VIAL SUBQ PRN ×2 (13:55→15:55)
[2018-06-09] MEDS ORDERED: CEFT1SOL1 IV (14:08)
[2018-06-09] MEDS ORDERED: ASCO-786 GT (14:08)
--- NOTE | 2018-06-09 15:00 | NUR ---
started tube feeding, placement checked. Addendum: 06/10/18 at 1301 by Balaji Avila RN ABOVE TUBE FEEDING STARTED AT 1610 NOT 1500, PT WAS IN CT SCAN AT 1500 ON 06/09/2018
--- NOTE | 2018-06-09 15:10 | NUR ---
TOOK PT FOR CT SCAN WITH MARSHALL , RN AND RT [id number], BLOOD FROM TRACH NOTED, NOTIFIED RESIDENT. CAME BACK AT THIS MOMENT WITH BP 117/65, HR 99, O2 SATS 100%.
--- NOTE | 2018-06-09 15:30 | NUR ---
BLEEDING FROM TRACH NOTED, DR. DOUGLAS MADE AWARE. WILL FOLLOW UP WITH ORDERS.
--- NOTE | 2018-06-09 15:42 | NUR ---
[address] SXN MOD AMT BLOODY SECS CONTINUED TO SXN TRACH BONYN CARE DONE PT STILL WITH SMALL AMT BLOODY SECS RN AWARE TRACH SITE SECURE PT TRANSFERRED BACK TO ICU 6 PLACED ON VENT WITH SETTINGS CHARTED WILL CONTINUE TO MONITOR PT ON VENT
[2018-06-09] MEDS: Z-GUARD PASTE TP SCH (15:44)
--- NOTE | 2018-06-09 15:44 | NUR ---
SPOKE TO PATIENT'S SON JANETTE OVER THE PHONE, UPDATED ON PATIENT'S STATUS. ALL CONCERNS AND QUESTIONS ANSWERED.
[2018-06-09] MEDS ORDERED: DEXTROSE 50% 50 ML SYR IVP PRN (15:55)
--- NOTE | 2018-06-09 16:10 | NUR ---
STARTED TUBE FEEDING NEPRO AT 40 CC/HR,FREE H2O FLUSH 50 Q4H, PLACEMENT CHECKED. BEFORE STARTING TUBE FEEDING, CHARGE NURSE CHECKED WITH IS IT OK TO START TUBE FEEDING. PER CHARGE NURSE, DR. DURANT STATED IT IS FINE TO START TUBE FEEDING.
[2018-06-09] MEDS: BLOOD GLUCOSE MONITORING 1 DEV DEV FS SCH ×2 (16:30→21:38)
[2018-06-09] MEDS ORDERED: MIDODRINE 5 MG TAB GT SCH (17:37)
--- NOTE | 2018-06-09 17:47 | NUR ---
continued to monitor pt on vent with settings as charted breath sounds present bilat coarse sxn pt with bloodty secs abu bag at bedside vent pluggeed into red outlet
--- NOTE | 2018-06-09 18:12 | NUR ---
RECEIVED PHONE CALL FROM DR.BUI DANIELLE, NOTIFIED PT LAB WORK AND BP, RECEIVED ORDER TO GIVE ALBUM 25% 100 CC , WHEN PT SBP INCREASED MORE THAN 100, GIVE METOLAZONE 5 MG ONCE BY G-TUBE AND LASIX 80 MG IV PUSH, WILL CARRY OUT.
[2018-06-09] MEDS ORDERED: METOLAZONE 5 MG TAB PO SCH (18:15)
[2018-06-09] MEDS ORDERED: ALBUMIN HUMAN 25% 100 ML IV SCH (18:15)
[2018-06-09 18:16] LABS: ANION GAP 22.5 (8-16); CARBON DIOXIDE 17.4 mmol/L (21-32); CHLORIDE 83 mmol/L (98-107); GLUCOSE 148 mg/dL (74-106); POTASSIUM 4.9 mmol/L (3.5-5.1)
[2018-06-09 18:31] LABS: SODIUM SERUM 118 mmol/L (136-145)
[2018-06-09 18:32] LABS: CREATININE 5.6 mg/dL (0.7-1.3); UREA NITROGEN, BLOOD 177 mg/dL (7-18)
--- NOTE | 2018-06-09 18:44 | NUR ---
RECEIVED PHONE CALL FROM , PER DR. GARCIA, GIVE PT 2G SODIUM CHLORIDE BY G-TUBE AND HOLD IV FLUID. CHARGE NURSE MADE AWARE .
[2018-06-09] MEDS ORDERED: NACL 3% 100 ML IV SCH (19:00)
[2018-06-09] MEDS ORDERED: FUROSEMIDE 100 MG/10 ML VIAL IV SCH (19:00)
[2018-06-09] MEDS ORDERED: SODIUM CHLORIDE 1 GM TAB PO SCH (19:00)
[2018-06-09] MEDS ORDERED: ALBUTEROL SULFATE/IPRATROPIU 3 ML SOL IH SCH (19:00)
--- NOTE | 2018-06-09 19:15 | NUR ---
PT DOES NOT OPEN EYES. ENDORSED PT TO PM NURSE, NOTIFIED PM NURSE AND CHARGE NURSE. PLEASE GIVE METOLAZONE AND LASIX WHEN SBP OVER 100S PER NEPHRO ORDER.
--- NOTE | 2018-06-09 19:25 | NUR ---
RECEIVED REPORT FROM MORNING RN FOR CONTINUITY OF CARE. VS STABLE AT THIS TIME. FLACC 0. AFEBRILE. PT WITHDRAWS TO PAIN. PT DOES NOT APPEAR TO BE EXPERIENCING ANY DISCOMFORT AT THIS TIME. TRACH TO VENT WITH SETTINGS:AC 12, FIO2 28%, TV 450 AND PEEP 5. RESPIRATIONS ARE EVEN AND UNLABORED. DIMINISHED LUNG SOUNDS. S1+S2 HEARD. PULSES ARE PALPABLE IN ALL EXTREMITIES. SR ON MONITOR. BP WNL. ABDOMEN ROUND, SOFT AND NONDISTENDED. BS ACTIVE IN ALL QUADRANTS. PT HAS GTUBE ON LEFT UPPER QUADRANT. RECEIVED PT ON NEPHRO AT 40ML/HR. NO RESIDUAL NOTED AT THIS TIME. RANDALL CATHETER IN PLACE. DRAINING CLEAR AND YELLOW URINE. WILL CONTINUE MONITORING URINARY OUTPUT. PT HAS ALBINA PICC LINE WITH DRESSING THAT IS CLEAN, DRY, AND INTACT. SCD IN PLACE. HOB AT 30 DEGREES. SEIZURE PRECAUTIONS AND OTHER SAFETY PRECAUTIONS ARE IN PLACE. WILL CONTINUE TO MONITOR PT.
--- NOTE | 2018-06-09 19:36 | NUR ---
SXNED LARGE AMTS OF BRIGHT RED BLOOD. LAVAGED WITH COLD NS
--- NOTE | 2018-06-09 19:47 | NUR ---
US TECH AT BEDSIDE WITH PT. UPON LOOKING AT THE ELECTRICAL UNIT REBUILDER, PT NOTED WITH SHORT RUNS OF VTACH. CALLED RESIDENT DOCTORS, SPOKE WITH DR. ROSE, AND REPORTED THE EPISODES. PT GOING IN AND OUT OF VTACH. PULSE PALPABLE. RECEIVED AN ORDER FOR STAT EKG
--- NOTE | 2018-06-09 19:48 | NUR ---
CALLED PERI CHO, TO INFORM HER THAT DR. ROSE WANTED A STAT EKG FOR THE PT.
--- NOTE | 2018-06-09 20:26 | NUR ---
DR. NORTH ARRIVED IN THE UNIT. UPDATED HIM REGARDING THE CURRENT EVENTS WITH THE PT
--- NOTE | 2018-06-09 20:30 | NUR ---
INFORMED DR. ROSE THAT THE PT'S SON, BASIL, IS AT BEDSIDE RIGHT NOW AND WANTED TO DISCUSS WITH HER THE CODE STATUS OF THE PT.
--- NOTE | 2018-06-09 20:30 | NUR ---
DR. NORTH AT BEDSIDE TO SEE PT.
--- NOTE | 2018-06-09 20:38 | NUR ---
RECEIVED A CALL FROM DR. GARCIA, UPDATED HER REGARDING THE PT'S CONDITION AND THAT FAMILY IS AT BEDSIDE DECIDING THE CODE STATUS. DR. GARCIA TO FOLLOW-UP WITH RESIDENT DOCTORS.
--- NOTE | 2018-06-09 20:42 | NUR ---
1952 CODE BLUE CALLED. NO PULSE FELT. CHEST COMPRESSIONS STARTED.AND BAGGING WITH 100% FIO2. ACLS DRUGS GIVEN AND PULSE WAS BROUGHT BACK. PATIENT PLACED BACK ON VENT WITH 100%. ABG DRAWN
[2018-06-09 20:47] LABS: ANION GAP 23.7 (8-16); CARBON DIOXIDE 16.6 mmol/L (21-32); CHLORIDE 84 mmol/L (98-107); GLUCOSE 181 mg/dL (74-106); POTASSIUM 5.3 mmol/L (3.5-5.1)
[2018-06-09 20:53] LABS: CREATININE 5.7 mg/dL (0.7-1.3); SODIUM SERUM 119 mmol/L (136-145); UREA NITROGEN, BLOOD 175 mg/dL (7-18)
[2018-06-09] MEDS ORDERED: metroNIDAZOLE 500 MG/NS PREMIX 100 ML IV SCH (21:00)
[2018-06-09] MEDS ORDERED: INSULIN LANTUS 100 UNITS/ML 10 ML VIAL SUBQ SCH (21:00)
[2018-06-09] MEDS ORDERED: NON-FORMULARY ITEM (Insulin Glargine,Hum.rec.anlog (Lantus Solostar) 10 UNIT) SUBQ SCH (21:00)
[2018-06-09] MEDS: levETIRAcetam 100 MG/ML ORASYR GT SCH ×2 (21:00→21:33)
--- NOTE | 2018-06-09 21:27 | NUR ---
RECEIVED A CALL FROM PHARMACY TO CLARIFY HEPARIN ORDER D/T BLEEDING NOTED ON TRACH. ORDER TO BE CLARIFIED WITH RESIDENT DOCTORS.
[2018-06-09] MEDS ORDERED: SODIUM POLYSTYRENE 15 GM/60 ML UDBTL PO SCH (21:30)
--- NOTE | 2018-06-09 21:32 | NUR ---
SPOKE WITH DR. WALL, ACCORDING TO HER HAVE PHARMACY VERIFY IT BUT HOLD ANY DOSE TONIGHT. WILL CALL THE PHARMACY REGARDING THIS FURTHER INSTRUCTION.
--- NOTE | 2018-06-09 21:46 | NUR ---
CALLED PHARMACY TO INFORM THEM REGARDING THE HEPARIN ORDER. PER PHARMACY THEY WILL JUST SCHEDULE THE FIRST DOSE TOMORROW IN THE AM.
--- NOTE | 2018-06-09 21:53 | NUR ---
DR. GARCIA AT BEDSIDE TO SEE PT. RECEIVED NEW ORDERS. D/C NS AND START PT ON D5W WITH 4 AMPS BICARB AT 40ML/HR.
[2018-06-09] MEDS ORDERED: SODIUM BICARBONATE 8.4% 200 MEQ in DEXTROSE 5% 1,000 ML IV SCH (22:00)
--- NOTE | 2018-06-09 22:00 | NUR ---
CALLED PHARMACY TO VERIFY NEW ORDER FROM DR. GARCIA
[2018-06-09] MEDS ORDERED: SODIUM BICARBONATE 8.4% PFS 50 MEQ/50 ML SYR IVP ONE (22:17)
[2018-06-09 22:41] LABS: ANION GAP 25.8 (8-16); CARBON DIOXIDE 15.4 mmol/L (21-32); CHLORIDE 83 mmol/L (98-107); GLUCOSE 185 mg/dL (74-106); POTASSIUM 5.2 mmol/L (3.5-5.1)
[2018-06-09 22:42] LABS: UREA NITROGEN, BLOOD 176 mg/dL (7-18)
[2018-06-09 22:43] LABS: CREATININE 5.8 mg/dL (0.7-1.3); SODIUM SERUM 119 mmol/L (136-145)
--- NOTE | 2018-06-09 22:51 | NUR ---
SPOKE WITH DR. WALL TO CLARIFY THE LANTUS AND TUBE FEEDING. PER DR. WALL HOLD TUBE FEEDING FOR NOW AND THEY WILL RE-EVAL IN THE AM. OKAY TO HOLD LANTUS AT THIS TIME WELL.
--- NOTE | 2018-06-09 23:00 | NUR ---
PT'S FAMILY STILL AT BEDSIDE AT THIS TIME. SR TO ST ON MONITOR. NO CHANGE IN PT'S CONDITION. RESPIRATIONS ARE EVEN AND UNLABORED. FLACC 0.
[2018-06-10] VITALS: BP 105/57
[2018-06-10] MEDS: Z-GUARD PASTE TP SCH (00:26)
--- NOTE | 2018-06-10 01:10 | NUR ---
VS STABLE AT THIS TIME. FLACC 0. NO CHANGE IN PT'S CONDITION. PT DOES NOT APPEAR TO BE EXPERIENCING ANY DISCOMFORT AT THIS TIME. ALL SAFETY PRECAUTIONS ARE IN PLACE. WILL CONTINUE TO MONITOR PT.
[2018-06-10 01:18] VITALS: BP 105/56
[2018-06-10 02:00] VITALS: BP 97/61
--- NOTE | 2018-06-10 02:14 | NUR ---
RESIDENT DOCTOR (DR ROSE) MADE AWARE THAT PT HAVING SHORT RUNS OF VTACH.NO ORDERS
[2018-06-10 02:24] LABS: ANION GAP 22.5 (8-16); CARBON DIOXIDE 17.2 mmol/L (21-32); CHLORIDE 85 mmol/L (98-107); GLUCOSE 180 mg/dL (74-106); POTASSIUM 4.7 mmol/L (3.5-5.1)
[2018-06-10 02:26] LABS: SODIUM SERUM 120 mmol/L (136-145)
[2018-06-10 02:27] LABS: CREATININE 5.8 mg/dL (0.7-1.3); UREA NITROGEN, BLOOD 178 mg/dL (7-18)
--- NOTE | 2018-06-10 02:34 | NUR ---
PT NOTED WITH SUSTAINED VTACH. REPORTED TO DR. ROSE.
--- NOTE | 2018-06-10 02:35 | NUR ---
PT'S RHYTHM CHANGED TO VFIB. PULSE IS PRESENT WHICH WAS CHECKED WITH DOPPLER.
--- NOTE | 2018-06-10 02:36 | NUR ---
FLYNN ELKINS CALLED PT'S SON, BASIL, AND MADE AWARE OF THE CURRENT CARDIAC RHYTHM THE PATIENT IS IN. PER HOUS DIRECT MAIL MANAGER, THE PT'S SON WILL COME IN
--- NOTE | 2018-06-10 02:37 | NUR ---
DR. WALL AT BEDSIDE TO SEE PT.
--- NOTE | 2018-06-10 02:50 | NUR ---
CURRENT RHYTHM ON THE MONITOR: SINUS TACHYCARDIA. PULSE AND BP PRESENT.
--- NOTE | 2018-06-10 03:09 | NUR ---
PT'S SON AT BEDSIDE, ASKED IF HE WANTS PT TO BE GIVEN PAIN MEDICATION SUCH MORPHINE. PT'S SON REFUSED.
[2018-06-10 03:12] VITALS: BP 117/55
--- NOTE | 2018-06-10 03:27 | NUR ---
RHYTHM NOTED ON MONITOR WAS VTACH. CALLED RESIDENT DOCTORS AND SPOKE WITH DR. ROSE. INFORMED HER REGARDING THE CARDIAC RHYTHM AT THIS TIME.
--- NOTE | 2018-06-10 03:28 | NUR ---
PULSE CHECKED AND WAS NOT ABLE TO PALPATE. CHECKED WITH DOPPLER AND STILL NO PULSE.
--- NOTE | 2018-06-10 03:30 | NUR ---
DR. ROSE AT BEDSIDE TO SEE PT. PHYSICIAN SPOKE WITH PT'S SON AT BEDSIDE.
--- NOTE | 2018-06-10 03:50 | NUR ---
CALLED ADMITTING AND SPOKE WITH KATI. INFORMED HER THAT PT .
--- NOTE | 2018-06-10 03:51 | NUR ---
CALLED TRAVELING BUYER AND INFORMED HIM THAT PT HAD .
--- NOTE | 2018-06-10 03:53 | NUR ---
PHONE CALL TO [facility]; SPOKE WITH JOHNNY; QUESTIONS ANSWERED.BODY RELEASED REFERENCE # [id number]
--- NOTE | 2018-06-10 03:59 | NUR ---
PHONE CALL TO RN PATIENT SERVICES; SPOKE WITH ELLA; QUESTIONS ANSWERED. PER ELLA, RN PATIENT SERVICES WILL CALL.AWAITING CALL
--- NOTE | 2018-06-10 04:06 | NUR ---
patient 3:43am patient disconnected from ventilator
--- NOTE | 2018-06-10 04:28 | NUR ---
PHONE CALL FROM [facility], SPOKE WITH LOUISA, INFORMATION GIVEN REQUESTED; BODY RELEASED [id number]; VERIFIED WITH LOUISA REGARDING THE 1ST CASE# CC [id number]; HE SAID IT CAN ALSO BE USED FOR THIS CASE.
--- NOTE | 2018-06-10 05:13 | NUR ---
CALLED ASSEMBLER GOLF WOOD HEAD AGAIN TO FOLLOW-UP SINCE NO PHONE CALL HAS BEEN RECEIVED TO REPORT PT'S .
[2018-06-10] MEDS ORDERED: LANSOPRAZOLE 30 MG CAPDR GT SCH (06:30)
--- NOTE | 2018-06-10 08:05 | NUR ---
RECEIVED PHONE CALL FROM VOCATIONAL TRAINING INSTRUCTOR'S OFFICE-ANIL COX REGARDING PT. ANIL COX WANTS TO KNOW IF PATIENT HAS A HISTORY OF FALL, PT'S SON ( JANETTE ARANDA) AT BEDSIDE,ANIL COX WANTED TO TALK TO THE SON. AFTER TALKING TO THE SON, ANIL COX TALK TO RN AND STATED PT IS A VOCATIONAL TRAINING INSTRUCTOR'S HOLD. RN CLARIFIED THE MEANING OF VOCATIONAL TRAINING INSTRUCTOR'S HOLD AND PER ANIL, NO EMBALMING OF THE BODY UNTIL FURTHER NOTICE. PER ANIL COX, SHE WILL NOTIFY MORTUARY WHEN TO DO EMBALMING. PER PT'S SON, PT HAD FALL IN JULY 2017 AND SON MADE AWARE PT IS A VOCATIONAL TRAINING INSTRUCTOR'S HOLD.
[2018-06-10] MEDS ORDERED: POTASSIUM CHLORIDE 20% 40 MEQ/15 ML UDC GT SCH (09:00)
[2018-06-10] MEDS ORDERED: DOCUSATE 100 MG/10 ML UDC GT SCH (09:00)
[2018-06-10] MEDS ORDERED: MIDODRINE 5 MG TAB GT SCH ×2 (09:00)
[2018-06-10] MEDS ORDERED: ASPIRIN 81 MG TAB.CHEW GT SCH ×2 (09:00)
[2018-06-10] MEDS ORDERED: DEXTROSE IV SCH (09:00)
[2018-06-10] MEDS ORDERED: ASPIRIN 81 MG GT SCH (09:00)
[2018-06-10] MEDS ORDERED: NON-FORMULARY ITEM (Ascorbic Acid (Vitamin C) 500 MG) GT SCH (09:00)
[2018-06-10] MEDS ORDERED: POTASSIUM CHLORIDE GT SCH (09:00)
[2018-06-10] MEDS ORDERED: SODIUM CHLORIDE 1 GM TAB PO SCH (09:00)
[2018-06-10] MEDS ORDERED: ASCORBIC ACID 500 MG/5 ML ORASYR GT SCH (09:00)
[2018-06-10] MEDS ORDERED: NON-FORMULARY ITEM (Lansoprazole* (Prevacid 24Hr*) 30 MG) GT SCH (09:00)
[2018-06-10] MEDS ORDERED: CEFTRIAXONE IV SCH (09:00)
[2018-06-10] MEDS ORDERED: [UNRECOGNIZED DRUG - OTHER] IV SCH (09:00)
--- NOTE | 2018-06-10 09:00 | NUR ---
SPOKE TO [facility],MADE AWARE PT IS DOCK BUILDER'S HOLD, WHICH MEANS NO EMBALMING. ASKED DOCK BUILDER'S CASE NUMBER AND GAVE IT TO HER.
--- NOTE | 2018-06-10 10:50 | NUR ---
POST MORTEM CARE DONE.
--- NOTE | 2018-06-10 12:48 | NUR ---
CALLED ANIL COX'S OFFICE TO DOUBLE CHECK SHE RECEIVED ALL THE DOCUMENTS I FAXED TO HER, PER ANIL COX SHE KNEW SHE RECEIVED SOME DOCUMENTS BUT SHE IS ON THE PHONE SO SHE CAN NOT CHECK, SHE WILL CALL ME BACK.
--- NOTE | 2018-06-10 16:30 | NUR ---
FAXED reverser consult to Jaqueline brown.
[2018-06-13] MEDS ORDERED: EPOETIN ALFA 10,000 UNITS/ML VIAL SUBQ SCH (09:00)
== END 2018-06-10 11:05 | DRG 720 ==
LOC: MED 10:07 → MIC 12:12
PROVIDERS: ADMIT General Practice; ATTEND General Practice
PROC: 5A1935Z Respiratory Ventilation, Less than 24 Consecutive Hours (ICD-10-PCS; principal; 2018-06-09)
DX: A41.9 Sepsis, unspecified organism (principal); N17.0 Acute kidney failure with tubular necrosis; E43 Unspecified severe protein-calorie malnutrition; R65.21 Severe sepsis with septic shock; Z99.11 Dependence on respirator [ventilator] status; J96.10 Chronic respiratory failure, unspecified whether with hypoxia or hypercapnia; I47.2 Ventricular tachycardia; I50.43 Acute on chronic combined systolic (congestive) and diastolic (congestive) heart failure; I42.0 Dilated cardiomyopathy; I46.9 Cardiac arrest, cause unspecified; Z66 Do not resuscitate; K21.9 Gastro-esophageal reflux disease without esophagitis; E87.5 Hyperkalemia; E83.41 Hypermagnesemia; D68.59 Other primary thrombophilia; N18.9 Chronic kidney disease, unspecified; K86.1 Other chronic pancreatitis; R74.0 Nonspecific elevation of levels of transaminase and lactic acid dehydrogenase [LDH]; E11.22 Type 2 diabetes mellitus with diabetic chronic kidney disease; K62.89 Other specified diseases of anus and rectum; D64.9 Anemia, unspecified; G40.909 Epilepsy, unspecified, not intractable, without status epilepticus; N48.5 Ulcer of penis; N39.0 Urinary tract infection, site not specified; F03.90 Unspecified dementia, unspecified severity, without behavioral disturbance, psychotic disturbance, mood disturbance, and anxiety; E87.1 Hypo-osmolality and hyponatremia; I13.10 Hypertensive heart and chronic kidney disease without heart failure, with stage 1 through stage 4 chronic kidney disease, or unspecified chronic kidney disease; I25.10 Atherosclerotic heart disease of native coronary artery without angina pectoris; N40.0 Benign prostatic hyperplasia without lower urinary tract symptoms; I69.351 Hemiplegia and hemiparesis following cerebral infarction affecting right dominant side; Z68.22 Body mass index [BMI] 22.0-22.9, adult; I25.2 Old myocardial infarction; Z93.1 Gastrostomy status; Z95.1 Presence of aortocoronary bypass graft; Z93.0 Tracheostomy status; Z79.899 Other long term (current) drug therapy
CPT/HCPCS: 36415; 36600; 51702; 71045; 71250; 76770; 80048; 80053; 81001; 82150; 82550; 82553; 82803; 82948; 83605; 83690; 83735; 83880; 84100; 84484; 85025; 85610; 85730; 87040; 87070; 87081; 87086; 87186; 87205; 87804; 89220; 93005; 94002; 94640; 96374; 99285; J0696; J1815; J1940; J2060; J3490; J7030; J7060; J7620; P9046; Q0092